=== PATIENT | female | born 1945 | race Caucasian/White ===

== ENCOUNTER → 2017-02-01 | Outpatient (CLI) | payer OTHER ==
[~2017-02-01] MED LIST: CIPR1TAB11 PO; HYZ/10015 PO; METR-163 PO; ONDA4TAB54 PO; POTA8CAP6 PO; PRT/20 PO
[2017-02-01 17:58] LABS: THYROID STIMULATING HORMONE 1.87 uIu/ml (0.300-4.500)
== END | disposition home or self-care (01) ==
LOC: C.LABMFLN 11:56
PROVIDERS: ATTEND Family Medicine
DX: R63.5 Abnormal weight gain (principal)

== ENCOUNTER → 2017-02-26 | Outpatient (CLI) | payer OTHER ==
[2017-02-26 13:08] LABS: BASO % 0.7 %; BASO ABS # 0.06 K/uL (0-0.2); COMPLETE YES; EOS % 3.6 %; HEMATOCRIT 40.3 % (37-47); IG% 0.1 %; LYMPH % 23.7 %; LYMPH ABS # 2.02 K/uL (1.2-3.4); MEAN CELL VOLUME 84.3 fL (80-100); MEAN CORPUSCULAR HEMOGLOBIN 29.7 pg (25-34); MEAN CORPUSCULAR HGB CONC 35.2 g/dl (32-36); MEAN PLATELET VOLUME 11.4 fL (7.4-10.4); MONO % 7.5 %; NEUT % 64.4 %; PLATELET COUNT 235 K/uL (130-400); RED BLOOD COUNT 4.78 M/uL (4.2-5.4); WHITE BLOOD COUNT 8.53 K/uL (4.8-10.8)
[2017-02-26 13:32] LABS: ALT/SGPT 21 U/L (12-78); BLOOD UREA NITROGEN 16 mg/dl (7-18); BUN/CREATININE RATIO 18.1 (10-20); CARBON DIOXIDE 28 mmol/L (21-32); CHLORIDE 105 mmol/L (98-107); CHOLESTEROL 194 mg/dl (0-200); GLUCOSE 124 mg/dl (70-99); POTASSIUM 3.4 mmol/L (3.5-5.1); SODIUM 142 mmol/L (136-145); TRIGLYCERIDES 115 mg/dl (0-150); VERY LOW DENSITY LIPOPROT CALC 23 mg/dl
[2017-02-26 13:36] LABS: ALB/GLOB RATIO 1.2 (0.9-2); ALKALINE PHOSPHATASE 85 U/L (45-117); AST/SGOT 13 U/L (15-37); HDL CHOLESTEROL 49 mg/dl; LDL CHOLESTEROL CALCULATED 122 mg/dl
== END | disposition home or self-care (01) ==
LOC: EDBD → C.LABMFLN 13:31
PROVIDERS: ATTEND Family Medicine
DX: I10 Essential (primary) hypertension (principal); E78.5 Hyperlipidemia, unspecified

== ENCOUNTER 2017-08-02 18:35 | Emergency (ER) | payer OTHER ==
[~2017-08-02] VITALS: Ht 157.5 cm; Wt 66.9 kg
[2017-08-02 18:51] VITALS: Ht 157.5 cm; Wt 66.9 kg
[2017-08-02] MEDS ORDERED: PANTOprazole INJ 80 MG in DEXTROSE 5% 100ML 100 ML IV STA (19:23)
[2017-08-02 19:47] LABS: BASO % 0.6 %; BASO ABS # 0.05 K/uL (0-0.2); COMPLETE YES; EOS % 2.3 %; HEMATOCRIT 35.4 % (37-47); LYMPH % 19.8 %; LYMPH ABS # 1.63 K/uL (1.2-3.4); MEAN CELL VOLUME 82.7 fL (80-100); MEAN CORPUSCULAR HEMOGLOBIN 26.4 pg (25-34); MEAN CORPUSCULAR HGB CONC 31.9 g/dl (32-36); MEAN PLATELET VOLUME 11.6 fL (7.4-10.4); NEUT % 70.3 %; PLATELET COUNT 262 K/uL (130-400); RED BLOOD COUNT 4.28 M/uL (4.2-5.4); WHITE BLOOD COUNT 8.23 K/uL (4.8-10.8)
[2017-08-02 19:53] LABS: PARTIAL THROMBOPLASTIN RATIO 0.9; PROTHROMBIN TIME (PATIENT) 10.3 SECONDS (9.0-12.0)
[2017-08-02 19:55] LABS: ALT/SGPT 20 U/L (12-78); BLOOD UREA NITROGEN 15 mg/dl (7-18); CARBON DIOXIDE 28 mmol/L (21-32); CHLORIDE 104 mmol/L (98-107); GLUCOSE 105 mg/dl (70-99); POTASSIUM 3.2 mmol/L (3.5-5.1); SODIUM 141 mmol/L (136-145)
[2017-08-02 20:00] LABS: ALKALINE PHOSPHATASE 101 U/L (45-117); AST/SGOT 17 U/L (15-37)
[2017-08-02 20:03] LABS: URINE APPEARANCE CLEAR (CLEAR); URINE BILIRUBIN NEG (NEG); URINE COLOR YELLOW; URINE NITRITE NEG (NEG); URINE SPECIFIC GRAVITY 1.009 (1.000-1.030); UROBILINOGEN NEG (NEG)
--- NOTE | 2017-08-02 20:03 | DIAGNOSTIC IMAGING REPORT ---
CHEST ONE VIEW PORTABLE CLINICAL HISTORY: EVALUATE GI BLEED dyspnea COMPARISON STUDY: No previous studies for comparison. FINDINGS: The bones soft tissues and hemidiaphragms are normal. The cardiomediastinal silhouette is normal. The lungs are clear. The pulmonary vasculature is normal. IMPRESSION: Negative chest. The above report was generated using voice recognition software. It may contain grammatical, syntax or spelling errors. Electronically signed by: Glenn Seymour M.D. 08/02/2017 8:01 PM Dictated Date/Time: 08/02/2017 8:01 PM
[2017-08-02 20:07] LABS: MANUAL MICROSCOPIC REQUIRED? NO; REVIEW REQ? YES
[2017-08-02] MEDS ORDERED: PRT/20 PO (20:24)
[2017-08-02 20:51] VITALS: BP 144/83; PULSE 78; TEMP 36.7; O2SAT 94
--- NOTE | 2017-08-03 01:41 | EMERGENCY ROOM VISIT NOTE ---
History Report prepared by Brigitte: Vale Mattson Under the Supervision of: Dr. German Minor M.D. First contact with patient: 19:14 Chief Complaint: GI ASSESSMENT Stated Complaint: GI BLEED PER DR Berry Triage Summary: "My doctor sent me over here and told me I have GI bleeding and my blood count dropped." per pt. History of Present Illness The patient is a 72 year old female who presents to the Emergency Room with complaints of potential GI bleeding starting [employer]. The patient was referred to the ED by her PCP after having blood work yesterday which showed that her hemoglobin was around 10. Her PCP was concerned for GI bleeding. She reports that her stools have been black recently. She notes that she started taking iron pills last week because she had been feeling tired. Her stools were not black prior to taking the iron. She feels lightheaded at times when standing and when she lies back and closes her eyes. She denies any chest pain or LOC. She has not had any rectal bleeding before. She has not noticed any blood in her stool. She was told to stop her aspirin. She is currently not on any blood thinners. She is feeling well. The patient had blood work because she had been feeling SOB for the past year. She has a history of hypertension. She has not yet taken her medications today. She had 13 inches of colon removed for diverticulitis. She has had a hysterectomy. She denies alcohol use. She uses Advil occasionally. Source of History: patient Onset: CASH SPECIALIST Position: other (GI) Quality: other (bleeding) Timing: other (potential) Associated Symptoms: + SOB, No LOC, No chest pain, No hematochezia Note: Pt reports black stools, lightheadedness. Review of Systems See HPI for pertinent positives & negatives. A total of 10 systems reviewed and were otherwise negative. Past Medical & Surgical Medical Problems: (1) Hypertension Surgical Problems: (1) S/P partial colectomy Family History No pertinent family history stated. Social History Smoking Status: Never Smoker Marital Status: Housing Status: lives with significant other Occupation Status: employed Current/Historical Medications Scheduled Pantoprazole (Protonix), 40 MG PO DAILY Allergies Uncoded Allergies: MEDIA CONTRAST (Allergy, Severe, parlaized, 08/02/17) CODINE (Allergy, Intermediate, swelling of the face, 08/02/17) Physical Exam Vital Signs Date Time Temp Pulse Resp B/P (MAP) Pulse Ox O2 Delivery O2 Flow Rate FiO2 08/02/17 20:51 36.7 78 22 144/83 94 08/02/17 20:35 78 22 94 08/02/17 20:30 144/83 08/02/17 20:05 83 27 93 08/02/17 20:00 161/56 08/02/17 19:50 71 18 173/67 98 Room Air 08/02/17 19:46 173/67 08/02/17 19:35 79 22 08/02/17 19:24 79 08/02/17 18:51 36.7 80 18 183/81 97 Room Air Physical Exam Constitutional: Vital signs reviewed. Eyes: Pupils are equal round reactive to light. Conjunctiva are noninjected. ENT: Pharynx is clear without erythema or exudate. Mucous membranes are moist. Neck supple without meningeal signs. Respiratory: Clear to auscultation bilaterally. Breath sounds are equal bilaterally. Cardiovascular: Regular rate and rhythm. No rubs or gallops. GI: Soft, nondistended and nontender. Bowel sounds are present. Rectal: Guaiac positive dark brown stool, no blood. Musculoskeletal: No peripheral edema. No lower extremity tenderness. Integumentary: No cyanosis. Neurological: The patient is awake and alert. No focal deficits. Psychiatric: Normal affect. Medical Decision & Procedures ER Provider Diagnostic Interpretation: X-ray results as stated below per interpretation by me and the radiologist: CHEST ONE VIEW PORTABLE CLINICAL HISTORY: EVALUATE GI BLEED dyspnea COMPARISON STUDY: No previous studies for comparison. FINDINGS: The bones soft tissues and hemidiaphragms are normal. The cardiomediastinal silhouette is normal. The lungs are clear. The pulmonary vasculature is normal. IMPRESSION: Negative chest. The above report was generated using voice recognition software. It may contain grammatical, syntax or spelling errors. Electronically signed by: Glenn Seymour M.D. 08/02/2017 8:01 PM Dictated Date/Time: 08/02/2017 8:01 PM Laboratory Results 08/02/17 19:09 Red Blood Count 4.28, Mean Corpuscular Volume 82.7, Mean Corpuscular Hemoglobin 26.4, Mean Corpuscular Hemoglobin Concent 31.9, Mean Platelet Volume 11.6, Neutrophils (%) (Auto) 70.3, Lymphocytes (%) (Auto) 19.8, Monocytes (%) (Auto) 7.0, Eosinophils (%) (Auto) 2.3, Basophils (%) (Auto) 0.6, Neutrophils # (Auto) 5.78, Lymphocytes # (Auto) 1.63, Monocytes # (Auto) 0.58, Eosinophils # (Auto) 0.19, Basophils # (Auto) 0.05 08/02/17 19:09 Test 08/02/17 19:09 08/02/17 19:30 White Blood Count 8.23 K/uL (4.8-10.8) Red Blood Count 4.28 M/uL (4.2-5.4) Hemoglobin 11.3 g/dL (12.0-16.0) Hematocrit 35.4 % (37-47) Mean Corpuscular Volume 82.7 fL (80-100) Mean Corpuscular Hemoglobin 26.4 pg (25-34) Mean Corpuscular Hemoglobin Concent 31.9 g/dl (32-36) Platelet Count 262 K/uL (130-400) Mean Platelet Volume 11.6 fL (7.4-10.4) Neutrophils (%) (Auto) 70.3 % Lymphocytes (%) (Auto) 19.8 % Monocytes (%) (Auto) 7.0 % Eosinophils (%) (Auto) 2.3 % Basophils (%) (Auto) 0.6 % Neutrophils # (Auto) 5.78 K/uL (1.4-6.5) Lymphocytes # (Auto) 1.63 K/uL (1.2-3.4) Monocytes # (Auto) 0.58 K/uL (0.11-0.59) Eosinophils # (Auto) 0.19 K/uL (0-0.5) Basophils # (Auto) 0.05 K/uL (0-0.2) RDW Standard Deviation 49.3 fL (36.4-46.3) RDW Coefficient of Variation 16.5 % (11.5-14.5) Immature Granulocyte % (Auto) 0.0 % Immature Granulocyte # (Auto) 0.00 K/uL (0.00-0.02) Prothrombin Time 10.3 SECONDS (9.0-12.0) Prothromb Time International Ratio 1.0 (0.9-1.1) Activated Partial Thromboplast Time 24.4 SECONDS (21.0-31.0) Partial Thromboplastin Ratio 0.9 Anion Gap 9.0 mmol/L (3-11) Est Creatinine Clear Calc Drug Dose 45.0 ml/min Estimated GFR () 64.7 Estimated GFR (Non- 55.8 BUN/Creatinine Ratio 15.0 (10-20) Calcium Level 9.0 mg/dl (8.5-10.1) Total Bilirubin 0.3 mg/dl (0.2-1) Direct Bilirubin < 0.1 mg/dl (0-0.2) Aspartate Amino Transf (AST/SGOT) 17 U/L (15-37) Alanine Aminotransferase (ALT/SGPT) 20 U/L (12-78) Alkaline Phosphatase 101 U/L (45-117) Troponin I < 0.015 ng/ml (0-0.045) Total Protein 7.4 gm/dl (6.4-8.2) Albumin 3.9 gm/dl (3.4-5.0) Lipase 214 U/L (73-393) Urine Color YELLOW Urine Appearance CLEAR (CLEAR) Urine pH 6.0 (4.5-7.5) Urine Specific [place] 1.009 (1.000-1.030) Urine Protein NEG (NEG) Urine Glucose (UA) NEG (NEG) Urine Ketones NEG (NEG) Urine Occult Blood 1+ (NEG) Urine Nitrite NEG (NEG) Urine Bilirubin NEG (NEG) Urine Urobilinogen NEG (NEG) Urine Leukocyte Esterase SMALL (NEG) Urine WBC (Auto) 1-5 /hpf (0-5) Urine RBC (Auto) 0-4 /hpf (0-4) Urine Hyaline Casts (Auto) 0 /lpf (0-5) Urine Epithelial Cells (Auto) 5-10 /lpf (0-5) Urine Bacteria (Auto) NEG (NEG) Urine Renal Epithelial Cells 5-10 /lpf (0-5) Laboratory results as reviewed by me. Medications Administered Medications (Trade) Dose Ordered Sig/Abby Route Start Time Stop Time Status Last Admin Dose Admin Pantoprazole Sodium 80 mg/ Dextrose 120 ml @ 400 mls/hr NOW STAT IV 08/02/17 19:23 08/02/17 19:40 DC 08/02/17 19:48 400 MLS/HR ECG Indication: SOB/dyspnea Rate (beats per minute): 72 Rhythm: normal sinus Findings: PAC, RBBB (incomplete), no acute ischemic change ED Course 1915: The patient was evaluated in room C3. A complete history and physical exam was performed. 1922: Pantoprazole Sodium 80 mg/Dextrose 120 ml @ 400 mls/hr IV. 2007: I obtained the test results from her doctors visit yesterday. Her hemoglobin was 10.3 and her potassium was 4. She states that she is on potassium supplements. She also had a negative D dimer and chest X-ray. 2010: I reevaluated the patient. She is resting comfortably. I discussed the test results with her. She verbalized agreement of the treatment plan. The oil field caser is arranging close follow up on Saturday. She will be discharged home. Medical Decision This is a 72-year-old female who presents with anemia and black stools. Differential diagnosis includes upper GI bleed, peptic ulcer disease, varices, perforation, gastritis. I did perform a limited focused review of portions of the patient's old chart on the electronic medical record. The patient has had no recent pertinent visits to this hospital. I did evaluate the patient as noted above. The patient states she has been short of breath for about a year. She was sent here today by her doctor noted that she was anemic. She has had black stools for the past 3 days but states that she has just recently started taking iron tablets. She is guaiac positive on examination with no gross blood was noted and no melena was noted. IV access was established. The patient was placed on a continuous doll wigs hackler. I did order and personally review the patient's 12-lead EKG and chest x-ray as described above. I did order and review the patient's blood work as noted in the electronic medical record. Her hemoglobin is actually higher than it was yesterday. I did treat patient with IV Protonix. I did discuss the test results with the patient. She will need close follow up for further evaluation, repeat hemoglobin and likely EGD. I did asked the oil field caser to help her with close follow up. The patient was discharged in good condition. She was given a prescription for Protonix. Medication Reconcilliation Current Medication List: was personally reviewed by me Blood Pressure Screening Patient's blood pressure: Elevated blood pressure Blood pressure disposition: Referred to PCP Impression Primary Impression: Upper GI bleed Additional Impressions: Anemia Hypokalemia Scribe Attestation The scribe's documentation has been prepared under my direct and personally reviewed by me in its entirety. I confirm that the note above accurately reflects all work, treatment, procedures, and medical decision making performed by me. Departure Information Dispostion Home / Self-Care Prescriptions Pantoprazole (Protonix) 20 Mg Tab 40 MG PO DAILY, #30 TAB Prov: German Minor M.D. 08/02/17 Referrals Ira Bejarano M.D. (PCP) Forms HOME CARE DOCUMENTATION FORM, IMPORTANT VISIT INFORMATION Patient Instructions ED Anemia Type Not Specified, ED Bleed UGI Stable, My [facility] Additional Instructions You have been examined and treated today on an emergency basis only. This is not a substitute for, or an effort to provide, complete comprehensive medical care. It is impossible to recognize and treat all injuries or illnesses in a single emergency department visit. It is therefore important that you follow up closely with your physician on Saturday. Call as soon as possible for an appointment. Return for worsening symptoms or if you develop fever, vomiting blood or coffee grounds, bright red or dark blood through the rectum, feeling like you are going to pass out or are very weak, or any other concerning symptoms. Avoid any aspirin or any anti-inflammatories such as Naprosyn, ibuprofen, Motrin , etc. Problem Qualifiers Additional Impressions: Anemia Anemia type: unspecified type Qualified Codes: D64.9 - Anemia, unspecified
--- NOTE | 2017-08-08 12:57 | Pharmacy Progress Note ---
ED Pharmacist Progress Note Date of Service: Aug 08, 2017. Received phone call from [facility] [place]. Patient was ordered Protonix 20mg tabs, take 2 tabs once daily. Pharmacist wanted to be sure rx was written correctly. I advised pharmacist the pt is to take 40mg daily and that 40mg tabs could be substituted to make this dosage.
== END 2017-08-02 20:52 | disposition home or self-care (01) ==
LOC: C.EDB 18:36 → C.EDC 20:52
DX: K92.2 Gastrointestinal hemorrhage, unspecified (principal); E87.6 Hypokalemia; D64.9 Anemia, unspecified; I49.1 Atrial premature depolarization; I45.10 Unspecified right bundle-branch block; I10 Essential (primary) hypertension; R06.02 Shortness of breath; Z79.899 Other long term (current) drug therapy; Z90.49 Acquired absence of other specified parts of digestive tract; Z90.710 Acquired absence of both cervix and uterus

== ENCOUNTER 2017-08-14 12:51 | Inpatient (IN) | payer OTHER ==
[~2017-08-14] VITALS: Ht 157.5 cm; Wt 64.9 kg
[~2017-08-14 12:51] MED LIST changes: -CIPR1TAB11 PO; -HYZ/10015 PO; -METR-163 PO; -ONDA4TAB54 PO; -POTA8CAP6 PO
[2017-08-14] MEDS ORDERED: SODIUM CHLORIDE 0.9% 1000ML 1,000 ML IV STA (13:14)
[2017-08-14] MEDS ORDERED: ACETAMINOPHEN IV 100 ML IV STA (13:14)
[2017-08-14] MEDS ORDERED: ONDANSETRON INJ 2 MG/ML 2 ML VIAL IV STA (13:14)
[2017-08-14] MEDS ORDERED: POTA8CAP6 PO (13:43)
[2017-08-14] MEDS ORDERED: HYZ/10015 PO (13:43)
--- NOTE | 2017-08-14 13:48 | EMERGENCY ROOM VISIT NOTE ---
History First contact with patient: 13:06 Chief Complaint: ABDOMINAL PAIN Stated Complaint: ABD PAIN Nursing Triage Summary: PCP referred patient to ER for CT scan of her abdomen due recent pain she has been having in her abdomen. Pt had recent endoscopy, PCP informed her that she also has infection in her stomach. History of Present Illness The patient is a 72 year old female who presents to the Emergency Room with complaints of diffuse abdominal pain that started 2 days ago. She states the pain came on gradually throughout the day, has been getting progressively worse , she describes as a pressure and intense, constant, 08/04. She also states that she feels very bloated and states that she has been unable to close her pants which normally fit her. Patient reports she was recently being worked up for fatigue by her PCP, found to have anemia and blood in her stool. She states that she had an endoscopy on 08/06, she was told that they did not find any ulcers or active bleeding, but did say that she had an infection in her stomach and an inflamed esophagus. She also reports a history of diverticulitis and has had a partial bowel resection done in the past about 16 years ago with no further problems. She has associated chills off and on and some intermittent nausea with the pain, she denies any fevers, vomiting, diarrhea or changes in her bowel habits, dysuria. She denies any chest pain, shortness of breath, palpitations, dizziness or syncope, back pain. PMH of HTN. Review of Systems A complete 10 point review of systems was reviewed with the patient with pertinent positives and negatives as per history of present illness. All else were negative. Past Medical/Surgical History Medical Problems: (1) Abdominal pain (2) Diverticulitis (3) Hypertension Surgical Problems: (1) S/P partial colectomy Social History Smoking Status: Never Smoker Marital Status: Housing Status: lives with significant other Occupation Status: employed Current/Historical Medications Scheduled Hctz/Losartan (Hyzaar 25MG/100MG), 1 TAB PO DAILY Pantoprazole (Protonix), 40 MG PO DAILY Potassium Chloride (Klor-Con Ext Rel), 8 MEQ PO DAILY Allergies Reviewed in chart. Physical Exam Vital Signs Date Time Temp Pulse Resp B/P (MAP) Pulse Ox O2 Delivery O2 Flow Rate FiO2 08/14/17 19:50 63 18 106/59 98 Room Air 08/14/17 19:19 73 18 159/68 96 Room Air 08/14/17 17:58 68 18 148/109 97 Room Air 08/14/17 15:39 72 18 108/84 98 Room Air 08/14/17 14:40 66 16 140/75 97 Room Air 08/14/17 12:59 36.9 87 18 168/81 97 Room Air Physical Exam CONSTITUTIONAL: No acute distress, but appears uncomfortable and in pain. Mildly dehydrated. Alert and oriented X 4 with normal affect. HEENT: Normocephalic, atraumatic. Pupils equal, round and reactive to light, EOMI. TMs normal. Pharynx normal. NECK: Supple, full active range of motion without discomfort. RESPIRATORY: Clear to auscultation bilaterally with no wheezing, crackles, rhonchi or stridor. Equal expansion bilaterally. CARDIOVASCULAR: Regular rate and rhythm with no murmurs, rubs or gallops. Normal peripheral perfusion. No edema. GASTROINTESTINAL: The abdomen is soft, slightly distended with decreased bowel sounds throughout, severely tender in all quadrants with guarding and rebound tenderness. MUSCULOSKELETAL: Full range of motion of all joints without discomfort. INTEGUMENTARY: No rash or other significant dermatologic conditions noted. NEUROLOGIC: Cranial nerves II-XII grossly intact. No focal neurologic deficits noted. Medical Decision & Procedures ER Provider Diagnostic Interpretation: ABDOMEN 2VIEW W/PA CHEST RTN CLINICAL HISTORY: eval free air pain COMPARISON STUDY: No previous studies for comparison. FINDINGS: The soft tissues, psoas shadows, renal outlines and intestinal gas pattern appear normal. There is no evidence for bowel obstruction. There is no evidence for free intraperitoneal air. No abnormal abdominal calcifications are seen. A frontal view of the chest was performed and is unremarkable. IMPRESSION: Normal study. ----- CT SCAN OF THE ABDOMEN AND PELVIS WITHOUT CONTRAST CLINICAL HISTORY: Abdominal pain and bloating. Recent endoscopy. Evaluate for bowel perforation. COMPARISON STUDY: Conventional radiographic study dated 08/14/2017 TECHNIQUE: CT scan of the abdomen and pelvis was performed from the lung bases to the proximal femurs. Images are reviewed in the axial, sagittal, and coronal planes. IV contrast was not administered for this examination. A dose lowering technique was utilized adhering to the principles of ALARA. CT DOSE: 267.81 mGy.cm FINDINGS: Lower chest: There are by basilar atelectatic changes. Liver: The unenhanced liver is normal in size, contour, and attenuation. There is no intrahepatic biliary ductal dilatation. Gallbladder: Cholelithiasis Spleen: Normal in size and attenuation. Pancreas: Unremarkable. Adrenal glands: Unremarkable. Kidneys: There is dilatation of the right renal collecting system and pelvis in a pattern suggestive of a UPJ type obstruction. There is also mild fullness of the left renal pelvis but no significant calyceal dilatation. No ureteral calculi are visualized. Bowel: There are no transition zones to indicate bowel obstruction. There is no evidence of acute appendicitis. There is an inflammatory process within the left lateral mid abdomen. There is jejunal bowel wall thickening and infiltration of the mesentery. This is adjacent to a diverticulum of the mid descending colon and there is mild associated colonic wall thickening. The position of the jejunum is unusual as it is located lateral to the descending colon. An internal hernia cannot be excluded. Peritoneum: There is no intraperitoneal free air or abdominal ascites. Vasculature: The abdominal aorta is normal in course and caliber. Adenopathy: None. Pelvic viscera: The uterus appears surgically absent Skeletal structures: No destructive osseous lesions are seen. IMPRESSION: 1. Inflammatory process involving the left lateral midabdomen. There is jejunal bowel wall thickening and significant infiltration of the associated mesentery. This is immediately adjacent to a diverticulum of the mid descending colon and there is mild associated colonic wall thickening. The position of the jejunum is unusual as it is located lateral to the descending colon. An internal hernia cannot be excluded. A primary jejunal process with secondary involvement of the colon is favored over diverticulitis with secondary involvement of the jejunum. 2. Cholelithiasis 3. Dilated right renal collecting system and pelvis the pattern suggestive a UPJ type obstruction. Laboratory Results 08/14/17 13:30 Red Blood Count 4.25, Mean Corpuscular Volume 81.9, Mean Corpuscular Hemoglobin 26.6, Mean Corpuscular Hemoglobin Concent 32.5, Mean Platelet Volume 10.8, Neutrophils (%) (Auto) 78.7, Lymphocytes (%) (Auto) 12.7, Monocytes (%) (Auto) 6.4, Eosinophils (%) (Auto) 1.5, Basophils (%) (Auto) 0.4, Neutrophils # (Auto) 8.61, Lymphocytes # (Auto) 1.39, Monocytes # (Auto) 0.70, Eosinophils # (Auto) 0.16, Basophils # (Auto) 0.04 08/14/17 13:30 Test 08/14/17 13:30 08/14/17 13:37 08/14/17 14:20 White Blood Count 10.93 K/uL (4.8-10.8) Red Blood Count 4.25 M/uL (4.2-5.4) Hemoglobin 11.3 g/dL (12.0-16.0) Hematocrit 34.8 % (37-47) Mean Corpuscular Volume 81.9 fL (80-100) Mean Corpuscular Hemoglobin 26.6 pg (25-34) Mean Corpuscular Hemoglobin Concent 32.5 g/dl (32-36) Platelet Count 234 K/uL (130-400) Mean Platelet Volume 10.8 fL (7.4-10.4) Neutrophils (%) (Auto) 78.7 % Lymphocytes (%) (Auto) 12.7 % Monocytes (%) (Auto) 6.4 % Eosinophils (%) (Auto) 1.5 % Basophils (%) (Auto) 0.4 % Neutrophils # (Auto) 8.61 K/uL (1.4-6.5) Lymphocytes # (Auto) 1.39 K/uL (1.2-3.4) Monocytes # (Auto) 0.70 K/uL (0.11-0.59) Eosinophils # (Auto) 0.16 K/uL (0-0.5) Basophils # (Auto) 0.04 K/uL (0-0.2) RDW Standard Deviation 49.0 fL (36.4-46.3) RDW Coefficient of Variation 16.4 % (11.5-14.5) Immature Granulocyte % (Auto) 0.3 % Immature Granulocyte # (Auto) 0.03 K/uL (0.00-0.02) Anion Gap 9.0 mmol/L (3-11) Est Creatinine Clear Calc Drug Dose 46.2 ml/min Estimated GFR () 66.3 Estimated GFR (Non- 57.2 BUN/Creatinine Ratio 14.2 (10-20) Calcium Level 9.2 mg/dl (8.5-10.1) Total Bilirubin 0.5 mg/dl (0.2-1) Direct Bilirubin 0.1 mg/dl (0-0.2) Aspartate Amino Transf (AST/SGOT) 13 U/L (15-37) Alanine Aminotransferase (ALT/SGPT) 17 U/L (12-78) Alkaline Phosphatase 97 U/L (45-117) Total Protein 7.0 gm/dl (6.4-8.2) Albumin 3.5 gm/dl (3.4-5.0) Lipase 153 U/L (73-393) Bedside Lactic Acid Venous 1.89 mmol/L (0.90-1.70) Urine Color YELLOW Urine Appearance CLEAR (CLEAR) Urine pH 8.0 (4.5-7.5) Urine Specific [place] 1.013 (1.000-1.030) Urine Protein NEG (NEG) Urine Glucose (UA) NEG (NEG) Urine Ketones NEG (NEG) Urine Occult Blood NEG (NEG) Urine Nitrite NEG (NEG) Urine Bilirubin NEG (NEG) Urine Urobilinogen NEG (NEG) Urine Leukocyte Esterase SMALL (NEG) Urine WBC (Auto) 1-5 /hpf (0-5) Urine RBC (Auto) 0-4 /hpf (0-4) Urine Hyaline Casts (Auto) 1-5 /lpf (0-5) Urine Epithelial Cells (Auto) 10-20 /lpf (0-5) Urine Bacteria (Auto) NEG (NEG) Medications Administered Medications (Trade) Dose Ordered Sig/Abby Route Start Time Stop Time Status Last Admin Dose Admin Sodium Chloride 1,000 ml @ 999 mls/hr Q1H1M STAT IV 08/14/17 13:14 08/14/17 14:14 DC 08/14/17 13:39 999 MLS/HR Ondansetron HCl (Zofran Inj) 4 mg NOW STAT IV 08/14/17 13:14 08/14/17 13:19 DC 08/14/17 13:38 4 MG Acetaminophen 100 ml @ 400 mls/hr NOW STAT IV 08/14/17 13:14 08/14/17 13:28 DC 08/14/17 13:39 400 MLS/HR Morphine Sulfate (MoRPHine SULFATE INJ) 2 mg NOW STAT IV 08/14/17 17:25 08/14/17 17:26 DC 08/14/17 17:31 2 MG Piperacillin Sod/ Tazobactam Sod (Zosyn Iv) 4.5 gm NOW STAT IV 08/14/17 17:29 08/14/17 17:30 DC 08/14/17 17:54 4.5 GM Morphine Sulfate (MoRPHine SULFATE INJ) 4 mg NOW STAT IV 08/14/17 19:29 08/14/17 19:30 DC 08/14/17 19:39 4 MG Medical Decision CC: Patient presenting with complaint of abdominal pain and bloating Interpretation of Labs: Leukocytosis with left shift, mild anemia that appears unchanged from previous, hypokalemia, no other significant electrolyte abnormality, normal renal function, normal liver enzymes and lipase, slightly elevated lactic acid. UA negative. Differential Diagnosis: Includes, but not limited to bowel perforation, small bowel obstruction, diverticulitis, gastritis, gastroenteritis, intra-abdominal abscess, intra-abdominal mass, among others Medication Reconciliation: I attest that I have personally reviewed the patient' s current medication list. Vital signs review: I reviewed the patient's vital signs and interpret them as follows: T: Afebrile; BP: Hypertensive; HR: Within normal limits; RR: Within normal limits; Pulse Ox: Within normal limits on room air. Summary: Patient was evaluated at bedside, history of physical exam performed. Patient is alert and in no acute distress, but does appear to be quite uncomfortable and in pain. She is resting comfortably in the stretcher, but experiences significant pain with any movement. Patient has slight abdominal distention on exam and it is noted that she was unable to fully close her pants which she states normally fit her. The abdomen is diffusely tender and distended throughout, diminished bowel sounds, with some guarding and rebound tenderness. The abdomen is soft, I do not suspect acute abdomen at this time. Given her recent endoscopy procedure, I am most concerned for possible bowel perforation, upright abdominal series ordered to assess for free air. Patient was offered IV morphine for her pain, she states she does not want to take anything sedating, requested Tylenol. IV Tylenol ordered. Orders were also placed for labs, UA, IV fluids for hydration, IV Zofran for nausea, CT abdomen/pelvis with oral contrast (IV contrast was not ordered due to patient allergy)to further evaluate for bowel perforation and other intra- abdominal abnormalities. Patient discussed with Dr. Barclay, who agrees with my assessment and plan. Labs reviewed as above, mild leukocytosis and mildly elevated lactic acid. No acute worsening of anemia. Abdominal series x-ray imaging shows non-obstructive pattern and no free air. CT imaging concerning for large area of bowel inflammation and infiltrative changes, unclear etiology. 1715 - I updated patient and her family on all results thus far. Patient still rates her pain as 9/10 with any movement, but states she is comfortable at rest. She does agree to a small dose of morphine at this time for management of her severe pain. IV Zosyn ordered for empiric coverage of possible abdominal infection. I spoke on the phone with Dr. Gordon, GI, who agrees with plan for admission and will see the patient tomorrow for possible inpatient colonoscopy. I spoke with Dr. Rod, Hospitalist, who agrees to admit the patient. I made attempts to speak with general surgery regarding the patient's exam and CT findings, however I have been unable to get in touch with them. I did discuss this with Dr. Rod, she will follow up with surgery. Patient reassessed multiple times throughout ED stay, she remains stable and in no acute distress, but continues to complain of significant abdominal pain with any movement or palpation of the abdomen. She has been improving slightly with the morphine. She has been kept nothing by mouth with the exception of oral contrast. I updated the patient and her family on the plans for admission, they verbalized understanding and are agreeable to this plan. The patient was stable at time of admission. Blood Pressure Screening Patient's blood pressure: Elevated blood pressure Impression Primary Impression: Abdominal pain Departure Information Dispostion Admitted as an inpatient Condition FAIR Referrals Ira Bejarano M.D. (PCP) Patient Instructions [facility] Problem Qualifiers Primary Impression: Abdominal pain Abdominal location: generalized Qualified Codes: R10.84 - Generalized abdominal pain
[2017-08-14 13:52] LABS: BASO % 0.4 %; BASO ABS # 0.04 K/uL (0-0.2); COMPLETE YES; EOS % 1.5 %; HEMATOCRIT 34.8 % (37-47); IG% 0.3 %; LYMPH % 12.7 %; LYMPH ABS # 1.39 K/uL (1.2-3.4); MEAN CELL VOLUME 81.9 fL (80-100); MEAN CORPUSCULAR HEMOGLOBIN 26.6 pg (25-34); MEAN CORPUSCULAR HGB CONC 32.5 g/dl (32-36); MEAN PLATELET VOLUME 10.8 fL (7.4-10.4); MONO % 6.4 %; NEUT % 78.7 %; PLATELET COUNT 234 K/uL (130-400); RED BLOOD COUNT 4.25 M/uL (4.2-5.4); WHITE BLOOD COUNT 10.93 K/uL (4.8-10.8)
[2017-08-14 14:15] LABS: BUN/CREATININE RATIO 14.2 (10-20); CALCIUM 9.2 mg/dl (8.5-10.1); CREATININE 0.98 mg/dl (0.60-1.20)
[2017-08-14 14:43] LABS: URINE APPEARANCE CLEAR (CLEAR); URINE BILIRUBIN NEG (NEG); URINE COLOR YELLOW; URINE NITRITE NEG (NEG); URINE SPECIFIC GRAVITY 1.013 (1.000-1.030); UROBILINOGEN NEG (NEG); ZZUR CULT IF INDIC CLEAN CATCH NO
[2017-08-14 14:48] LABS: MANUAL MICROSCOPIC REQUIRED? NO; REVIEW REQ? NO
--- NOTE | 2017-08-14 15:00 | DIAGNOSTIC IMAGING REPORT ---
ABDOMEN 2VIEW W/PA CHEST RTN CLINICAL HISTORY: eval free air pain COMPARISON STUDY: No previous studies for comparison. FINDINGS: The soft tissues, psoas shadows, renal outlines and intestinal gas pattern appear normal. There is no evidence for bowel obstruction. There is no evidence for free intraperitoneal air. No abnormal abdominal calcifications are seen. A frontal view of the chest was performed and is unremarkable. IMPRESSION: Normal study. The above report was generated using voice recognition software. It may contain grammatical, syntax or spelling errors. Electronically signed by: Glenn Seymour M.D. 08/14/2017 2:59 PM Dictated Date/Time: 08/14/2017 2:58 PM
--- NOTE | 2017-08-14 16:56 | DIAGNOSTIC IMAGING REPORT ---
CT SCAN OF THE ABDOMEN AND PELVIS WITHOUT CONTRAST CLINICAL HISTORY: Abdominal pain and bloating. Recent endoscopy. Evaluate for bowel perforation. COMPARISON STUDY: Conventional radiographic study dated 08/14/2017 TECHNIQUE: CT scan of the abdomen and pelvis was performed from the lung bases to the proximal femurs. Images are reviewed in the axial, sagittal, and coronal planes. IV contrast was not administered for this examination. A dose lowering technique was utilized adhering to the principles of ALARA. CT DOSE: 267.81 mGy.cm FINDINGS: Lower chest: There are by basilar atelectatic changes. Liver: The unenhanced liver is normal in size, contour, and attenuation. There is no intrahepatic biliary ductal dilatation. Gallbladder: Cholelithiasis Spleen: Normal in size and attenuation. Pancreas: Unremarkable. Adrenal glands: Unremarkable. Kidneys: There is dilatation of the right renal collecting system and pelvis in a pattern suggestive of a UPJ type obstruction. There is also mild fullness of the left renal pelvis but no significant calyceal dilatation. No ureteral calculi are visualized. Bowel: There are no transition zones to indicate bowel obstruction. There is no evidence of acute appendicitis. There is an inflammatory process within the left lateral mid abdomen. There is jejunal bowel wall thickening and infiltration of the mesentery. This is adjacent to a diverticulum of the mid descending colon and there is mild associated colonic wall thickening. The position of the jejunum is unusual as it is located lateral to the descending colon. An internal hernia cannot be excluded. Peritoneum: There is no intraperitoneal free air or abdominal ascites. Vasculature: The abdominal aorta is normal in course and caliber. Adenopathy: None. Pelvic viscera: The uterus appears surgically absent Skeletal structures: No destructive osseous lesions are seen. IMPRESSION: 1. Inflammatory process involving the left lateral midabdomen. There is jejunal bowel wall thickening and significant infiltration of the associated mesentery. This is immediately adjacent to a diverticulum of the mid descending colon and there is mild associated colonic wall thickening. The position of the jejunum is unusual as it is located lateral to the descending colon. An internal hernia cannot be excluded. A primary jejunal process with secondary involvement of the colon is favored over diverticulitis with secondary involvement of the jejunum. 2. Cholelithiasis 3. Dilated right renal collecting system and pelvis the pattern suggestive a UPJ type obstruction Electronically signed by: Migel Angulo M.D. 08/14/2017 4:55 PM Dictated Date/Time: 08/14/2017 4:41 PM
[2017-08-14] MEDS ORDERED: MoRPHine SULFATE 4 MG/ML 1 ML CARP\\VIAL IV STA ×2 (17:25→19:29)
[2017-08-14] MEDS ORDERED: PIPERACILLIN/TAZOBACTAM 4.5 GM/100ML D5W IV STA (17:29)
--- NOTE | 2017-08-14 17:37 | EMERGENCY ROOM VISIT NOTE ---
ED Visit Note First contact with patient: 13:06 Patient was seen by our PA/GALLERY OR MUSEUM CURATOR. I was involved in the patient's care and did evaluate the patient myself. I was involved in the care throughout the ER stay. The patient presents with abdominal pain after having an endoscopy. She has a mild leukocytosis. CT scan shows jejunal inflammation with mesenteric inflammation. No bowel perforation or bowel obstruction. The patient is receiving IV antibiotics, pain medication has been ordered. Given the findings and her discomfort, admission observation is warranted. Surgery will be consulted, GI will be consulted.
[2017-08-14] MEDS ORDERED: NSS + 20MEQ KCL 1000ML 1,000 ML IV SCH (19:48)
[2017-08-14] MEDS ORDERED: MAGNESIUM HYDROXIDE SUSP 30 ML UDC PO PRN ×2 (20:00→20:45)
[2017-08-14] MEDS ORDERED: ZOLPIDEM TARTRATE 5 MG TAB PO PRN ×2 (20:00→20:45)
[2017-08-14] MEDS ORDERED: ONDANSETRON INJ 2 MG/ML 2 ML VIAL IV PRN (20:00)
[2017-08-14] MEDS ORDERED: ACETAMINOPHEN 325 MG TAB PO PRN ×2 (20:00→20:45)
[2017-08-14] MEDS ORDERED: ALUMINUM/MAGNESIUM/SIMETH (MAALOX MAX) 30 ML UDC PO PRN (20:00)
[2017-08-14 20:10] VITALS: Ht 157.5 cm; Wt 64.9 kg
[2017-08-14] MEDS ORDERED: MoRPHine SULFATE 4 MG/ML 1 ML CARP\\VIAL IV PRN (20:30)
--- NOTE | 2017-08-14 20:51 | Surgery Consultation ---
Consultation Date of Consultation: Aug 14, 2017. Attending Physician: History of Present Illness 72 y/o female with primarily right mid-abdominal pain since Saturday. She recently was found to be anemic and an EGD was essentially negative according to her. no n/v. pain has been essentially unchanged since Saturday. she states it feels like her prior bouts of diverticulitis. pain is better when she lies still and worse with movement. Social History Smoking Status: Never Smoker Marital Status: Housing Status: lives with significant other Occupation Status: employed Allergies Uncoded Allergies: MEDIA CONTRAST (Allergy, Severe, parlaized, 08/02/17) CODINE (Allergy, Intermediate, swelling of the face, 08/02/17) Home Medications Scheduled Hctz/Losartan (Hyzaar 25MG/100MG), 1 TAB PO DAILY Pantoprazole (Protonix), 40 MG PO DAILY Potassium Chloride (Klor-Con Ext Rel), 8 MEQ PO DAILY Current Inpatient Medications Current Inpatient Medications Medications (Trade) Dose Ordered Sig/Abby Route Start Time Stop Time Status Last Admin Dose Admin Potassium Chloride/Sodium Chloride 1,000 ml @ 125 mls/hr Q8H IV 08/14/17 19:48 08/15/17 19:47 Hydromorphone HCl (Dilaudid Inj) 0.5 mg Q2H PRN IV 08/14/17 20:30 08/28/17 20:29 UNV Morphine Sulfate (MoRPHine SULFATE INJ) 4 mg Q2H PRN IV 08/14/17 20:30 08/28/17 20:29 UNV Ciprofloxacin/ Dextrose 400 mg/ Prmx 200 ml @ 100 mls/hr Q12 IV 08/14/17 21:00 08/24/17 20:59 UNV Metronidazole 500 mg/Prmx 100 ml @ 100 mls/hr Q8H IV 08/14/17 20:30 08/24/17 20:29 UNV Review of Systems Abdomen: + pain, + problem reported (recent Heme + on hemoccult. egd negative. no gross blood in stool) Physical Exam Date Time Temp Pulse Resp B/P (MAP) Pulse Ox O2 Delivery O2 Flow Rate FiO2 08/14/17 20:22 70 18 144/67 98 08/14/17 20:10 Room Air 08/14/17 19:50 63 18 106/59 98 Room Air 08/14/17 19:19 73 18 159/68 96 Room Air 08/14/17 17:58 68 18 148/109 97 Room Air 08/14/17 15:39 72 18 108/84 98 Room Air 08/14/17 14:40 66 16 140/75 97 Room Air 08/14/17 12:59 36.9 87 18 168/81 97 Room Air General Appearance: + mild distress Head: normocephalic, atraumatic Eyes: EOMI, sclerae normal ENT: hearing grossly normal Neck: no JVD, trachea midline Respiratory/Chest: no respiratory distress, no accessory muscle use Abdomen/GI: soft, + tenderness (+TTP in RUQ and Right mid-abdomen. mild distenstion. no peritoneal signs ) Neurologic/Psych: alert, oriented x 3 Skin: warm/dry, no rash Laboratory Results Last 24 Hours Test 08/14/17 13:30 08/14/17 13:37 08/14/17 14:20 White Blood Count 10.93 K/uL Red Blood Count 4.25 M/uL Hemoglobin 11.3 g/dL Hematocrit 34.8 % Mean Corpuscular Volume 81.9 fL Mean Corpuscular Hemoglobin 26.6 pg Mean Corpuscular Hemoglobin Concent 32.5 g/dl Platelet Count 234 K/uL Mean Platelet Volume 10.8 fL Neutrophils (%) (Auto) 78.7 % Lymphocytes (%) (Auto) 12.7 % Monocytes (%) (Auto) 6.4 % Eosinophils (%) (Auto) 1.5 % Basophils (%) (Auto) 0.4 % Neutrophils # (Auto) 8.61 K/uL Lymphocytes # (Auto) 1.39 K/uL Monocytes # (Auto) 0.70 K/uL Eosinophils # (Auto) 0.16 K/uL Basophils # (Auto) 0.04 K/uL RDW Standard Deviation 49.0 fL RDW Coefficient of Variation 16.4 % Immature Granulocyte % (Auto) 0.3 % Immature Granulocyte # (Auto) 0.03 K/uL Sodium Level 141 mmol/L Potassium Level 3.0 mmol/L Chloride Level 106 mmol/L Carbon Dioxide Level 26 mmol/L Anion Gap 9.0 mmol/L Blood Urea Nitrogen 14 mg/dl Creatinine 0.98 mg/dl Est Creatinine Clear Calc Drug Dose 46.2 ml/min Estimated GFR () 66.3 Estimated GFR (Non- 57.2 BUN/Creatinine Ratio 14.2 Random Glucose 171 mg/dl Calcium Level 9.2 mg/dl Total Bilirubin 0.5 mg/dl Direct Bilirubin 0.1 mg/dl Aspartate Amino Transf (AST/SGOT) 13 U/L Alanine Aminotransferase (ALT/SGPT) 17 U/L Alkaline Phosphatase 97 U/L Total Protein 7.0 gm/dl Albumin 3.5 gm/dl Lipase 153 U/L Bedside Lactic Acid Venous 1.89 mmol/L Urine Color YELLOW Urine Appearance CLEAR Urine pH 8.0 Urine Specific [place] 1.013 Urine Protein NEG Urine Glucose (UA) NEG Urine Ketones NEG Urine Occult Blood NEG Urine Nitrite NEG Urine Bilirubin NEG Urine Urobilinogen NEG Urine Leukocyte Esterase SMALL Urine WBC (Auto) 1-5 /hpf Urine RBC (Auto) 0-4 /hpf Urine Hyaline Casts (Auto) 1-5 /lpf Urine Epithelial Cells (Auto) 10-20 /lpf Urine Bacteria (Auto) NEG Assessment & Plan Abdominal pain with mild leukocytosis and CT finding of inflammatory process I suspect this is diverticulitis with local inflammatory reaction of adjacent small bowel anatomy likely distorted as described on CT secondary to prior surgical hx. no evidence clinically of obstruction/internal hernia etc...does not appear clinically to have GI ischemia rec: admit/NPO/IVF/IV antibiotics with gram -/anaerobic coverage symptom control we are not out of the [place] regarding surgical intervention but no indication for urgent ex-lap currently will follow along closely discussed with primary team.
[2017-08-14 21:00] VITALS: BP 160/68; PULSE 77; TEMP 36.5; O2SAT 98
[2017-08-14] MEDS ORDERED: HEPARIN SOD 5000 UNIT/0.5 ML CARP SQ SCH (21:00)
--- NOTE | 2017-08-14 21:04 | History and Physical ---
History & Physical Date & Time of Service: Aug 14, 2017 at 20:53 Chief Complaint: Abd Pain Primary Care Physician: Ira Bejarano M.D. History of Present Illness Source: patient, family Mrs Keene is a 72 yo F with hypertension and known diverticular disease (s/p bowel resection 16 y ago, without any complications since) who presents with severe diffuse abdominal pain. She sees a Christopher Reyna PCP in [place] and Dr Keane from [facility]. Her PCP and GI have been working up her anemia / fatigue. She was found to have heme positive stools on a visit to the ED 08/02, but EGD on 08/06 did not show a bleeding ulcer. She presents today with diffuse abdominal pain since Saturday, 2 days ago. She describes it as sharp, intermittent , diffuse but worse in the top of her abdomen. It is associated with nausea and feeling bloated. She felt somewhat better after the second dose of morphine but denies any other relieving factors. Her pain is currently a /10. She is not currently vomiting. In the ED, the FINANCIAL AID ADMINISTRATOR discussed her care with her GI Dr. She was reviewed by Dr Johnson of General Surgery as well. It was recommended for her to be admitted for conservative management at this time. Past Medical/Surgical History Medical Problems: (1) Hypertension Status: Chronic Surgical Problems: (1) S/P partial colectomy Status: Resolved Family History No pertinent family history Social History Smoking Status: Never Smoker Smokeless Tobacco Use: No Alcohol Use: none Drug Use: none Marital Status: Housing status: lives with family Occupational Status: employed Immunizations History of Influenza Vaccine: Unknown History of Tetanus Vaccine?: Unknown History of Pneumococcal: Unknown History of Hepatitis B Vaccine: Unknown Multi-Drug Resistant Organisms History of MDRO: No Allergies Uncoded Allergies: MEDIA CONTRAST (Allergy, Severe, parlaized, 08/02/17) CODINE (Allergy, Intermediate, swelling of the face, 08/02/17) Home Medications Scheduled Hctz/Losartan (Hyzaar 25MG/100MG), 1 TAB PO DAILY Pantoprazole (Protonix), 40 MG PO DAILY Potassium Chloride (Klor-Con Ext Rel), 8 MEQ PO DAILY Review of Systems See HPI for pertinent positives & negatives. A total of 10 systems reviewed and were otherwise negative. Physical Exam Vital Signs Date Time Temp Pulse Resp B/P (MAP) Pulse Ox O2 Delivery O2 Flow Rate FiO2 08/14/17 20:22 70 18 144/67 98 08/14/17 20:10 Room Air 08/14/17 19:50 63 18 106/59 98 Room Air 08/14/17 19:19 73 18 159/68 96 Room Air 08/14/17 17:58 68 18 148/109 97 Room Air 08/14/17 15:39 72 18 108/84 98 Room Air 08/14/17 14:40 66 16 140/75 97 Room Air 08/14/17 12:59 36.9 87 18 168/81 97 Room Air General Appearance: WD/WN, + mild distress Head: normocephalic, atraumatic Eyes: normal inspection, PERRL ENT: hearing grossly normal Neck: supple, no JVD Respiratory/Chest: lungs clear, normal breath sounds, no respiratory distress Cardiovascular: regular rate, rhythm, no murmur, normal peripheral pulses Abdomen/GI: normal bowel sounds, + tenderness (diffuse, worse in epigastrium), + distended, + guarding Back: no CVA tenderness, no muscle spasm Extremities/Musculoskelatal: no calf tenderness, no pedal edema Neurologic/Psych: alert, normal mood/affect, normal reflexes, oriented x 3 Skin: no rash Diagnostics Laboratory Results Results Past 24 Hours Test 08/14/17 13:30 08/14/17 13:37 08/14/17 14:20 Range/Units White Blood Count 10.93 4.8-10.8 K/uL Red Blood Count 4.25 4.2-5.4 M/uL Hemoglobin 11.3 12.0-16.0 g/dL Hematocrit 34.8 37-47 % Mean Corpuscular Volume 81.9 80-100 fL Mean Corpuscular Hemoglobin 26.6 25-34 pg Mean Corpuscular Hemoglobin Concent 32.5 32-36 g/dl Platelet Count 234 130-400 K/uL Mean Platelet Volume 10.8 7.4-10.4 fL Neutrophils (%) (Auto) 78.7 % Lymphocytes (%) (Auto) 12.7 % Monocytes (%) (Auto) 6.4 % Eosinophils (%) (Auto) 1.5 % Basophils (%) (Auto) 0.4 % Neutrophils # (Auto) 8.61 1.4-6.5 K/uL Lymphocytes # (Auto) 1.39 1.2-3.4 K/uL Monocytes # (Auto) 0.70 0.11-0.59 K/uL Eosinophils # (Auto) 0.16 0-0.5 K/uL Basophils # (Auto) 0.04 0-0.2 K/uL RDW Standard Deviation 49.0 36.4-46.3 fL RDW Coefficient of Variation 16.4 11.5-14.5 % Immature Granulocyte % (Auto) 0.3 % Immature Granulocyte # (Auto) 0.03 0.00-0.02 K/uL Sodium Level 141 136-145 mmol/L Potassium Level 3.0 3.5-5.1 mmol/L Chloride Level 106 98-107 mmol/L Carbon Dioxide Level 26 21-32 mmol/L Anion Gap 9.0 3-11 mmol/L Blood Urea Nitrogen 14 7-18 mg/dl Creatinine 0.98 0.60-1.20 mg/dl Est Creatinine Clear Calc Drug Dose 46.2 ml/min Estimated GFR () 66.3 Estimated GFR (Non- 57.2 BUN/Creatinine Ratio 14.2 10-20 Random Glucose 171 70-99 mg/dl Calcium Level 9.2 8.5-10.1 mg/dl Total Bilirubin 0.5 0.2-1 mg/dl Direct Bilirubin 0.1 0-0.2 mg/dl Aspartate Amino Transf (AST/SGOT) 13 15-37 U/L Alanine Aminotransferase (ALT/SGPT) 17 12-78 U/L Alkaline Phosphatase 97 45-117 U/L Total Protein 7.0 6.4-8.2 gm/dl Albumin 3.5 3.4-5.0 gm/dl Lipase 153 73-393 U/L Bedside Lactic Acid Venous 1.89 0.90-1.70 mmol/L Urine Color YELLOW Urine Appearance CLEAR CLEAR Urine pH 8.0 4.5-7.5 Urine Specific [place] 1.013 1.000-1.030 Urine Protein NEG NEG Urine Glucose (UA) NEG NEG Urine Ketones NEG NEG Urine Occult Blood NEG NEG Urine Nitrite NEG NEG Urine Bilirubin NEG NEG Urine Urobilinogen NEG NEG Urine Leukocyte Esterase SMALL NEG Urine WBC (Auto) 1-5 0-5 /hpf Urine RBC (Auto) 0-4 0-4 /hpf Urine Hyaline Casts (Auto) 1-5 0-5 /lpf Urine Epithelial Cells (Auto) 10-20 0-5 /lpf Urine Bacteria (Auto) NEG NEG Diagnostic Radiology CT A/P IMPRESSION: 1. Inflammatory process involving the left lateral midabdomen. There is jejunal bowel wall thickening and significant infiltration of the associated mesentery. This is immediately adjacent to a diverticulum of the mid descending colon and there is mild associated colonic wall thickening. The position of the jejunum is unusual as it is located lateral to the descending colon. An internal hernia cannot be excluded. A primary jejunal process with secondary involvement of the colon is favored over diverticulitis with secondary involvement of the jejunum. 2. Cholelithiasis 3. Dilated right renal collecting system and pelvis the pattern suggestive a UPJ type obstruction AXR IMPRESSION: Normal study. EKG Normal sinus rhythm with occasional Premature atrial complexes Normal ECG When compared with ECG of 02-AUG-2017 19:16, No significant change Confirmed by BRAD LARSON ([id number]) on 08/14/2017 3:38:14 PM Impression Assessment and Plan 72 yo F with known diverticulitis who presents w/severe abdominal pain and inflammation on CT - likely diverticulitis at this time, per surgery will treat conservatively unless anything worsens. Diverticulitis Received dose of Zosyn in ED. Will continue pt on Cipro and Flagyl IV. NPO with IV fluids. For pain, IV Tylenol, IV Morphine 4mg for moderate pain, and IV dilaudid for severe pain. If these are not controlling her pain, please page me. GI & General Surgery consulted. Hypokalemia K Edin now. Recheck in AM. Hypertension Will provide hydralazine IV for SBP > 160 or DBP > 110 Hold home Cozaar/HCTZ combo Code status: Full Dispo: Telemetry VTE: Heparin Attending Addendum: I have physically seen and examined this patient, have directed the resident's medical activities, and agree with the H&P as noted above with the following exceptions as noted. The patient is awake, alert and oriented 3, well-developed and well-nourished , normocephalic and atraumatic, lying in bed and in mild distress secondary to abdominal pain. HEENT--PERRL, EOMI, mucous membranes and oropharynx dry. Neck--supple, no JVD or bruits, thyroid normal, trachea midline, no adenopathy. Heart--normal S1 and S2, no extra beats, no murmurs, rubs or gallops. Lungs--clear bilaterally with good air movement, no respiratory distress, no accessory muscle use. Abdomen--generalized tenderness, worse in the epigastric area, mild distention with guarding. Extremities--no cyanosis, clubbing or edema. There are good distal pulses b/l. Dermatologic--normal skin turgor, normal color, warm and dry, no abnormal lymph nodes, no rash. Neurologic--cranial nerves II through XII grossly intact. Rheumatologic--normal range of motion, nontender, muscles and joints. Psychiatric--normal affect. Assessment and Plan: Diverticulitis-- She has been seen by surgery in the ED who recommends conservative therapy does time. Cipro 400 mg IV every 12 hours, and Flagyl 500 mg IV every 8 hours. Normal saline with KCl 20 mEq 100 mils per hour. Tylenol IV for mild pain or fever, morphine 4 mg IV every 2 hours when necessary moderate pain, and Dilaudid IV for severe pain. Zofran 4 mg IV every 6 hours when necessary nausea, Famotidine 20 mg IV every 12 hours. Hypertension/hypokalemia-- IV replacement. Repeat BMP and magnesium level in the a.m. Hold Hyzaar. When necessary hydralazine IV. Level of Care Telemetry Advanced Directives Existing Advance Directive: No Existing Living Will: No Existing Power of Travel Nurse: No Resuscitation Status FULL NO CARDIOVERSION VTE Prophylaxis VTE Risk Assessment Done? Y/N: Yes Risk Level: Moderate Given or contraindicated: SCD's Social Service Consult None Apply Resident Tracking Resident Involvement: Resident Care Provided Care Provided: Adult Hospital Medicine
[2017-08-14] MEDS ORDERED: INFLUENZA VACCINE HIGH DOSE 65+ 0.5 ML SYR IM. ONE (22:00)
[2017-08-14] MEDS ORDERED: INFLUENZA ADMINISTRATION CHARGE ONE (22:00)
[2017-08-14] MEDS: POTASSIUM CHLR 10 MEQ / WTR 10 MEQ in PREMIXED WATER 100 ML IV SCH ×2 (22:09→23:56)
[2017-08-14] MEDS: METRONIDAZOLE / NSS 500 MG in PREMIXED NSS 100 ML IV SCH (22:10)
[2017-08-14] MEDS: CIPROFLOXACIN / D5W 400 MG in PREMIXED IN D5W 200 ML IV SCH (22:12)
[2017-08-14] MEDS: SODIUM CHLOR 0.45% + 20MEQ KCL 1,000 ML IV SCH (22:22)
[2017-08-14 23:00] VITALS: BP 137/69; PULSE 78; TEMP 36.7; O2SAT 95
[2017-08-15] MEDS: HEPARIN SOD 5000 UNIT/0.5 ML CARP SQ SCH ×3 (00:10→21:54)
[2017-08-15 04:37] VITALS: BP 137/79; PULSE 80; TEMP 36.8; O2SAT 95
[2017-08-15] MEDS: METRONIDAZOLE / NSS 500 MG in PREMIXED NSS 100 ML IV SCH ×3 (05:40→21:32)
[2017-08-15] MEDS: SODIUM CHLOR 0.45% + 20MEQ KCL 1,000 ML IV SCH ×2 (05:40→13:22)
[2017-08-15] MEDS: ONDANSETRON INJ 2 MG/ML 2 ML VIAL IV PRN ×3 (05:59→23:48)
[2017-08-15 06:36] LABS: BASO % 0.2 %; BASO ABS # 0.02 K/uL (0-0.2); COMPLETE YES; EOS % 1.1 %; HEMATOCRIT 30.9 % (37-47); IG% 0.3 %; LYMPH % 15.9 %; LYMPH ABS # 1.58 K/uL (1.2-3.4); MEAN CELL VOLUME 84.4 fL (80-100); MEAN CORPUSCULAR HGB CONC 30.7 g/dl (32-36); MEAN PLATELET VOLUME 10.7 fL (7.4-10.4); MONO % 7.2 %; NEUT % 75.3 %; PLATELET COUNT 211 K/uL (130-400); RED BLOOD COUNT 3.66 M/uL (4.2-5.4); WHITE BLOOD COUNT 9.91 K/uL (4.8-10.8)
[2017-08-15 07:35] LABS: BUN/CREATININE RATIO 11.9 (10-20); CALCIUM 8.1 mg/dl (8.5-10.1); CREATININE 0.79 mg/dl (0.60-1.20); POTASSIUM 3.7 mmol/L (3.5-5.1)
--- NOTE | 2017-08-15 08:02 | Gastrointestinal Consultation ---
Gastrointestinal Consultation Date of Consultation: Aug 15, 2017 Attending Physician: Lucian Consulting Physician: Nusrat Reason for Consultation: diverticulitis History of Present Illness Patient is a 72 year old female w/ history of HTN and diverticulitis s/p partial colon in 1999 resection who presented to the ED with 4 day history of generalized abdominal pain. Pt was seen and evaluated, chart reviewed. Pt tells me she recently had an EGD last week for upper GI symptoms, heme + stools and SANTI. She tolerated this procedure well and was d/c with PPI. A few days after procedure she woke up with generalized abdominal pain, worse in LLQ and around her belly button. Pain was constant, associated with nausea, constipation and bloating. Denies any upper GI symptoms. Pain was identical to previous episodes of diverticulitis. No fever, chills, CP, SOB, weight loss, black/bloody stools ABD CT 08/14/17: Inflammatory process involving the left lateral midabdomen. There is jejunal bowel wall thickening and significant infiltration of the associated mesentery. This is immediately adjacent to a diverticulum of the mid descending colon and there is mild associated colonic wall thickening. The position of the jejunum is unusual as it is located lateral to the descending colon. An internal hernia cannot be excluded. A primary jejunal process with secondary involvement of the colon is favored over diverticulitis with secondary involvement of the jejunum. Cholelithiasis Dilated right renal collecting system and pelvis the pattern suggestive a UPJ type obstruction ABD XR 08/14/17: normal EGD 08/06/17: Normal upper third of esophagus, middle third of esophagus and lower third of esophagus. LA Grade A reflux esophagitis. Biopsied. Small hiatal hernia. Gastritis. Biopsied. Normal examined duodenum. Biopsied. Past Medical/Surgical History abdominal pain, diverticulitis Past Medical History: diverticulitis, HTN Past Surgical History: partial bowel resection Social History Smoking Status: Never Smoker Drug Use: none Marital Status: Housing Status: lives with significant other Occupation Status: employed Allergies Uncoded Allergies: MEDIA CONTRAST (Allergy, Severe, parlaized, 08/02/17) CODINE (Allergy, Intermediate, swelling of the face, 08/02/17) Current Medications Home Meds and Scripts Medications Dose Route/Sig Max Daily Dose Days Date Category Hyzaar 25MG/100MG (HCTZ/Losartan Potassium) Tab 1 Tab PO DAILY 08/14/17 Reported Klor-Con Ext Rel (Potassium Chloride) 8 Meq Tabcr 8 Meq PO DAILY 08/14/17 Reported Protonix (Pantoprazole Sodium) 20 Mg Tab 40 Mg PO DAILY 08/02/17 Rx Review of Systems Constitutional: No fever, No chills Respiratory: No cough, No shortness of breath Cardiac: No chest pain, No edema Abdomen: + pain, + nausea, + constipation, No vomiting, No diarrhea, No GI bleeding Physical Exam Date Time Temp Pulse Resp B/P (MAP) Pulse Ox O2 Delivery O2 Flow Rate FiO2 08/15/17 04:37 36.8 80 18 137/79 (98) 95 Room Air 08/15/17 04:00 Room Air 08/14/17 23:59 Room Air 08/14/17 23:00 36.7 78 16 137/69 (91) 95 Room Air 08/14/17 21:00 36.5 77 18 160/68 (98) 98 Room Air 08/14/17 20:22 70 18 144/67 98 08/14/17 20:10 Room Air 08/14/17 19:50 63 18 106/59 98 Room Air 08/14/17 19:19 73 18 159/68 96 Room Air 08/14/17 17:58 68 18 148/109 97 Room Air 08/14/17 15:39 72 18 108/84 98 Room Air 08/14/17 14:40 66 16 140/75 97 Room Air 08/14/17 12:59 36.9 87 18 168/81 97 Room Air General Appearance: + mild distress (pt appears uncomfortable in bed, on arrival to her room surgery was rounding) Eyes: PERRL ENT: hearing grossly normal Neck: supple Respiratory/Chest: lungs clear, normal breath sounds Cardiovascular: regular rate, rhythm, no gallop Abdomen: normal bowel sounds, soft, no pulsatile mass, + tenderness ( tenderness > LLQ and periumbilical ) Neurologic/Psych: alert, normal mood/affect, oriented x 3 Skin: normal color, warm/dry Laboratory Results Last 24 Hours Test 08/14/17 13:30 08/14/17 13:37 08/14/17 14:20 08/15/17 06:22 White Blood Count 10.93 K/uL 9.91 K/uL Red Blood Count 4.25 M/uL 3.66 M/uL Hemoglobin 11.3 g/dL 9.5 g/dL Hematocrit 34.8 % 30.9 % Mean Corpuscular Volume 81.9 fL 84.4 fL Mean Corpuscular Hemoglobin 26.6 pg 26.0 pg Mean Corpuscular Hemoglobin Concent 32.5 g/dl 30.7 g/dl Platelet Count 234 K/uL 211 K/uL Mean Platelet Volume 10.8 fL 10.7 fL Neutrophils (%) (Auto) 78.7 % 75.3 % Lymphocytes (%) (Auto) 12.7 % 15.9 % Monocytes (%) (Auto) 6.4 % 7.2 % Eosinophils (%) (Auto) 1.5 % 1.1 % Basophils (%) (Auto) 0.4 % 0.2 % Neutrophils # (Auto) 8.61 K/uL 7.46 K/uL Lymphocytes # (Auto) 1.39 K/uL 1.58 K/uL Monocytes # (Auto) 0.70 K/uL 0.71 K/uL Eosinophils # (Auto) 0.16 K/uL 0.11 K/uL Basophils # (Auto) 0.04 K/uL 0.02 K/uL RDW Standard Deviation 49.0 fL 51.8 fL RDW Coefficient of Variation 16.4 % 16.8 % Immature Granulocyte % (Auto) 0.3 % 0.3 % Immature Granulocyte # (Auto) 0.03 K/uL 0.03 K/uL Sodium Level 141 mmol/L 142 mmol/L Potassium Level 3.0 mmol/L 3.7 mmol/L Chloride Level 106 mmol/L 109 mmol/L Carbon Dioxide Level 26 mmol/L 26 mmol/L Anion Gap 9.0 mmol/L 7.0 mmol/L Blood Urea Nitrogen 14 mg/dl 9 mg/dl Creatinine 0.98 mg/dl 0.79 mg/dl Est Creatinine Clear Calc Drug Dose 46.2 ml/min 56.1 ml/min Estimated GFR () 66.3 86.1 Estimated GFR (Non- 57.2 74.3 BUN/Creatinine Ratio 14.2 11.9 Random Glucose 171 mg/dl 117 mg/dl Calcium Level 9.2 mg/dl 8.1 mg/dl Total Bilirubin 0.5 mg/dl Direct Bilirubin 0.1 mg/dl Aspartate Amino Transf (AST/SGOT) 13 U/L Alanine Aminotransferase (ALT/SGPT) 17 U/L Alkaline Phosphatase 97 U/L Total Protein 7.0 gm/dl Albumin 3.5 gm/dl Lipase 153 U/L Bedside Lactic Acid Venous 1.89 mmol/L Urine Color YELLOW Urine Appearance CLEAR Urine pH 8.0 Urine Specific [place] 1.013 Urine Protein NEG Urine Glucose (UA) NEG Urine Ketones NEG Urine Occult Blood NEG Urine Nitrite NEG Urine Bilirubin NEG Urine Urobilinogen NEG Urine Leukocyte Esterase SMALL Urine WBC (Auto) 1-5 /hpf Urine RBC (Auto) 0-4 /hpf Urine Hyaline Casts (Auto) 1-5 /lpf Urine Epithelial Cells (Auto) 10-20 /lpf Urine Bacteria (Auto) NEG Impression Patient is a 72 year old female w/ history of diverticulitis s/p partial bowel resection in 1999 who presented with severe abdominal pain x 4 days associated with nausea, bloating and constipation. CT is suggestive of diverticulitis without abscess or perforation - general surgery is following and does not foresee any urgent surgical procedures at this time. Pt has a history of SANTI and heme + stools, her H&H 11.3/34 on arrival and 9.5 after IVF, no visible GIB. Her last colonoscopy was about 8 years ago per patient. Plan - Diverticulitis - bowel rest - IVF - electrolytes per primary service - antiemetics prn - analgesia prn - Cipro/Flagyl - appreciate surgery evaluation - colonoscopy in 6-8 weeks SANTI w/ heme + stools - EGD 08/06/17 w/ esophagitis - colonoscopy in 6-8 weeks GI will follow, please call with questions or concerns Attg add: I interviewed and examined pt, reviewed chart and labs. Pt with h/o mult abd surgeries, including diverticulitis s/p remote surgery She reports 3 mos of fatigue, anemia, and is s/p recent normal EGD. She had abrupt onset of L sided abd pain 3 days ago assoc with fever. Ct on admission shows thickening of left sided colon and thickening of adjacent loop of jejunum. Her presentation is most consistent with diverticulitis; I assume that the atypical appearance of the CT is related to her h/o prior surgery. It may also be possible, though less likely, that she has a primary disease in her jejunum ( acute mesenteric ishemia?? the relatively long duration of her symptoms argues against this; internal hernia?? unlikely, given absence of obstructive changes on CT). I cannot rule out neoplasm of colon or small intestine. For now, will rteat with abx and bowel rest. plan to repeat CT to f/u small bowel inflammation in 4 weeks, or sooner if her symptoms are slow to resolve, and cscopy in 4-6 weeks.
[2017-08-15 08:09] VITALS: BP 111/64; PULSE 78; TEMP 37; O2SAT 96
--- NOTE | 2017-08-15 08:47 | Surgery Progress Note ---
Surgery Progress Note Date of Service Aug 15, 2017. Subjective pt feels "about the same". feels reasonably ok when she is not moving/active. pain with movement. Objective Vital Signs: Date Time Temp Pulse Resp B/P (MAP) Pulse Ox O2 Delivery O2 Flow Rate FiO2 08/15/17 08:09 37.0 78 18 111/64 (80) 96 08/15/17 04:37 36.8 80 18 137/79 (98) 95 Room Air 08/15/17 04:00 Room Air 08/14/17 23:59 Room Air 08/14/17 23:00 36.7 78 16 137/69 (91) 95 Room Air 08/14/17 21:00 36.5 77 18 160/68 (98) 98 Room Air 08/14/17 20:22 70 18 144/67 98 08/14/17 20:10 Room Air 08/14/17 19:50 63 18 106/59 98 Room Air 08/14/17 19:19 73 18 159/68 96 Room Air 08/14/17 17:58 68 18 148/109 97 Room Air 08/14/17 15:39 72 18 108/84 98 Room Air 08/14/17 14:40 66 16 140/75 97 Room Air 08/14/17 12:59 36.9 87 18 168/81 97 Room Air General Appearance: + mild distress Head: normocephalic, atraumatic Neck: trachea midline Respiratory/Chest: no respiratory distress, no accessory muscle use Abdomen: + pertinent finding (mildly distended. +RUQ and right mid-abdominal tenderness. +guarding. no peritoneal signs. ) Laboratory Results: Results Past 24 Hours Test 08/14/17 13:30 08/14/17 13:37 08/14/17 14:20 08/15/17 06:22 Range/Units White Blood Count 10.93 9.91 4.8-10.8 K/uL Red Blood Count 4.25 3.66 4.2-5.4 M/uL Hemoglobin 11.3 9.5 12.0-16.0 g/dL Hematocrit 34.8 30.9 37-47 % Mean Corpuscular Volume 81.9 84.4 80-100 fL Mean Corpuscular Hemoglobin 26.6 26.0 25-34 pg Mean Corpuscular Hemoglobin Concent 32.5 30.7 32-36 g/dl Platelet Count 234 211 130-400 K/uL Mean Platelet Volume 10.8 10.7 7.4-10.4 fL Neutrophils (%) (Auto) 78.7 75.3 % Lymphocytes (%) (Auto) 12.7 15.9 % Monocytes (%) (Auto) 6.4 7.2 % Eosinophils (%) (Auto) 1.5 1.1 % Basophils (%) (Auto) 0.4 0.2 % Neutrophils # (Auto) 8.61 7.46 1.4-6.5 K/uL Lymphocytes # (Auto) 1.39 1.58 1.2-3.4 K/uL Monocytes # (Auto) 0.70 0.71 0.11-0.59 K/uL Eosinophils # (Auto) 0.16 0.11 0-0.5 K/uL Basophils # (Auto) 0.04 0.02 0-0.2 K/uL RDW Standard Deviation 49.0 51.8 36.4-46.3 fL RDW Coefficient of Variation 16.4 16.8 11.5-14.5 % Immature Granulocyte % (Auto) 0.3 0.3 % Immature Granulocyte # (Auto) 0.03 0.03 0.00-0.02 K/uL Sodium Level 141 142 136-145 mmol/L Potassium Level 3.0 3.7 3.5-5.1 mmol/L Chloride Level 106 109 98-107 mmol/L Carbon Dioxide Level 26 26 21-32 mmol/L Anion Gap 9.0 7.0 3-11 mmol/L Blood Urea Nitrogen 14 9 7-18 mg/dl Creatinine 0.98 0.79 0.60-1.20 mg/dl Est Creatinine Clear Calc Drug Dose 46.2 56.1 ml/min Estimated GFR () 66.3 86.1 Estimated GFR (Non- 57.2 74.3 BUN/Creatinine Ratio 14.2 11.9 10-20 Random Glucose 171 117 70-99 mg/dl Calcium Level 9.2 8.1 8.5-10.1 mg/dl Total Bilirubin 0.5 0.2-1 mg/dl Direct Bilirubin 0.1 0-0.2 mg/dl Aspartate Amino Transf (AST/SGOT) 13 15-37 U/L Alanine Aminotransferase (ALT/SGPT) 17 12-78 U/L Alkaline Phosphatase 97 45-117 U/L Total Protein 7.0 6.4-8.2 gm/dl Albumin 3.5 3.4-5.0 gm/dl Lipase 153 73-393 U/L Bedside Lactic Acid Venous 1.89 0.90-1.70 mmol/L Urine Color YELLOW Urine Appearance CLEAR CLEAR Urine pH 8.0 4.5-7.5 Urine Specific [place] 1.013 1.000-1.030 Urine Protein NEG NEG Urine Glucose (UA) NEG NEG Urine Ketones NEG NEG Urine Occult Blood NEG NEG Urine Nitrite NEG NEG Urine Bilirubin NEG NEG Urine Urobilinogen NEG NEG Urine Leukocyte Esterase SMALL NEG Urine WBC (Auto) 1-5 0-5 /hpf Urine RBC (Auto) 0-4 0-4 /hpf Urine Hyaline Casts (Auto) 1-5 0-5 /lpf Urine Epithelial Cells (Auto) 10-20 0-5 /lpf Urine Bacteria (Auto) NEG NEG Assessment & Plan suspect diverticulitis continue NPO/IV antibiotics/supportive care will continue to closely monitor
[2017-08-15] MEDS: CIPROFLOXACIN / D5W 400 MG in PREMIXED IN D5W 200 ML IV SCH ×2 (10:10→21:32)
[2017-08-15 12:11] VITALS: BP 126/83; PULSE 78; TEMP 36.7; O2SAT 93
[2017-08-15] MEDS: HYDROmorphone INJ 0.5 MG/0.5 ML SYR IV PRN ×2 (12:24→23:46)
[2017-08-15] MEDS: ACETAMINOPHEN IV 100 ML IV PRN ×2 (12:33→21:40)
[2017-08-15] MEDS ORDERED: NURSING DECISION MEDICATION ORDER SCH (13:00)
[2017-08-15] MEDS: PROMETHAZINE HCL INJ 12.5 MG in SODIUM CHLORIDE 0.9% 50ML 50 ML IV PRN (13:21)
[2017-08-15] MEDS ORDERED: NURSING VERBAL MED ORDER ONE (14:30)
[2017-08-15 15:16] VITALS: BP 134/55; PULSE 76; TEMP 36.9; O2SAT 95
--- NOTE | 2017-08-15 16:07 | Family Medicine Progress Note ---
Progress Note Date of Service Aug 15, 2017. Subjective Pt evaluation today including: conversation w/ patient, physical exam, chart review, conversation w/ [employer] ax consultant, review of inpatient medication list Pain: 5/10 PO Intake: NPO Voiding: no voiding problems Patient still with abdominal pain. She rates it as a 5/10 in severity. The pain is worse with movement She has been kept NPO, put on IVF and started on antibiotics Constitutional: No fever, No chills, No sweats Respiratory: No cough, No shortness of breath Cardiovascular: No chest pain, No claudication, No palpitations Abdomen: + pain, + nausea, No vomiting, No diarrhea, No constipation Female : No dysuria, No urinary frequency Heme: No abnormal bleeding/bruising Medications Current Inpatient Medications Medications (Trade) Dose Ordered Sig/Abby Route Start Time Stop Time Status Last Admin Dose Admin Hydromorphone HCl (Dilaudid Inj) 0.5 mg Q2H PRN IV 08/14/17 20:30 08/28/17 20:29 08/15/17 12:24 0.5 MG Ciprofloxacin/ Dextrose 400 mg/ Prmx 200 ml @ 100 mls/hr Q12H IV 08/14/17 22:00 08/24/17 21:59 08/15/17 10:10 100 MLS/HR Metronidazole 500 mg/Prmx 100 ml @ 100 mls/hr Q8H IV 08/14/17 22:00 08/24/17 21:59 08/15/17 13:22 100 MLS/HR Heparin Sodium (Porcine) (Heparin Sq 5000 Unit/0.5ml) 5,000 unit Q12 SQ 08/14/17 21:00 09/13/17 20:59 08/15/17 10:12 5,000 UNIT Acetaminophen (Tylenol Tab) 650 mg Q4H PRN PO 08/14/17 20:45 09/13/17 20:44 Magnesium Hydroxide (Milk Of Magnesia Susp) 30 ml Q12H PRN PO 08/14/17 20:45 09/13/17 20:44 Zolpidem Tartrate (Ambien Tab) 5 mg HSZ PRN PO 08/14/17 20:45 09/13/17 20:44 Ondansetron HCl (Zofran Inj) 4 mg Q6H PRN IV 08/14/17 20:45 09/13/17 20:44 08/15/17 11:44 4 MG Acetaminophen 100 ml @ 400 mls/hr Q8H PRN IV 08/14/17 21:00 09/13/17 20:59 08/15/17 12:33 400 MLS/HR Potassium Chloride/Sodium Chloride 1,000 ml @ 125 mls/hr Q8H IV 08/14/17 22:15 08/15/17 22:14 08/15/17 13:22 125 MLS/HR Promethazine HCl 12.5 mg/Sodium Chloride 50.5 ml @ 202 mls/hr Q6H PRN IV 08/15/17 13:00 09/14/17 12:59 08/15/17 13:21 202 MLS/HR Objective Vital Signs Date Time Temp Pulse Resp B/P (MAP) Pulse Ox O2 Delivery O2 Flow Rate FiO2 08/15/17 15:16 36.9 76 18 134/55 (81) 95 Room Air 08/15/17 12:11 36.7 78 16 126/83 (97) 93 Room Air 08/15/17 12:00 Room Air 08/15/17 08:09 37.0 78 18 111/64 (80) 96 08/15/17 08:00 Room Air 08/15/17 04:37 36.8 80 18 137/79 (98) 95 Room Air 08/15/17 04:00 Room Air 08/14/17 23:59 Room Air 08/14/17 23:00 36.7 78 16 137/69 (91) 95 Room Air 08/14/17 21:00 36.5 77 18 160/68 (98) 98 Room Air 08/14/17 20:22 70 18 144/67 98 08/14/17 20:10 Room Air 08/14/17 19:50 63 18 106/59 98 Room Air 08/14/17 19:19 73 18 159/68 96 Room Air 08/14/17 17:58 68 18 148/109 97 Room Air Physical Exam General Appearance: WD/WN, no apparent distress Respiratory/Chest: lungs clear, no respiratory distress, no accessory muscle use Cardiovascular: regular rate, rhythm, no edema, no JVD, no murmur Abdomen: normal bowel sounds, soft, + tenderness (diffuse tenderness to deep palpation, especially in LUQ), + pertinent finding (no rebound or guarding) Extremities: non-tender, no pedal edema, no calf tenderness, normal capillary refill Neurologic/Psychiatric: alert, normal mood/affect, oriented x 3 Skin: normal color, warm/dry, no rash Laboratory Results Results Past 24 Hours Test 08/15/17 06:22 Range/Units White Blood Count 9.91 4.8-10.8 K/uL Red Blood Count 3.66 4.2-5.4 M/uL Hemoglobin 9.5 12.0-16.0 g/dL Hematocrit 30.9 37-47 % Mean Corpuscular Volume 84.4 80-100 fL Mean Corpuscular Hemoglobin 26.0 25-34 pg Mean Corpuscular Hemoglobin Concent 30.7 32-36 g/dl Platelet Count 211 130-400 K/uL Mean Platelet Volume 10.7 7.4-10.4 fL Neutrophils (%) (Auto) 75.3 % Lymphocytes (%) (Auto) 15.9 % Monocytes (%) (Auto) 7.2 % Eosinophils (%) (Auto) 1.1 % Basophils (%) (Auto) 0.2 % Neutrophils # (Auto) 7.46 1.4-6.5 K/uL Lymphocytes # (Auto) 1.58 1.2-3.4 K/uL Monocytes # (Auto) 0.71 0.11-0.59 K/uL Eosinophils # (Auto) 0.11 0-0.5 K/uL Basophils # (Auto) 0.02 0-0.2 K/uL RDW Standard Deviation 51.8 36.4-46.3 fL RDW Coefficient of Variation 16.8 11.5-14.5 % Immature Granulocyte % (Auto) 0.3 % Immature Granulocyte # (Auto) 0.03 0.00-0.02 K/uL Sodium Level 142 136-145 mmol/L Potassium Level 3.7 3.5-5.1 mmol/L Chloride Level 109 98-107 mmol/L Carbon Dioxide Level 26 21-32 mmol/L Anion Gap 7.0 3-11 mmol/L Blood Urea Nitrogen 9 7-18 mg/dl Creatinine 0.79 0.60-1.20 mg/dl Est Creatinine Clear Calc Drug Dose 56.1 ml/min Estimated GFR () 86.1 Estimated GFR (Non- 74.3 BUN/Creatinine Ratio 11.9 10-20 Random Glucose 117 70-99 mg/dl Calcium Level 8.1 8.5-10.1 mg/dl Assessment and Plan 72 yo F with known diverticulitis who presents w/severe abdominal pain and inflammation on CT - likely diverticulitis at this time, per surgery will treat conservatively unless anything worsens. Diverticulitis Will continue pt on Cipro and Flagyl IV. NPO with IV fluids. For pain, IV Tylenol, IV Morphine 4mg for moderate pain, and IV dilaudid for severe pain. Zofran and phenergan IV for nausea Famotidine IV Q12 GI and Surgery on board - suggest continue to monitor patient and colonoscopy in 6-8 weeks Hypokalemia (resolved) K Edin given 3.7 this morning Hypertension Will provide hydralazine IV for SBP > 160 or DBP > 110 Hold home Cozaar/HCTZ combo Code status: Full Dispo: Telemetry VTE: Heparin Continued [facility] stay due to: multiple IV medications needed Reviewed: Pt Seen/Exam by Me History continue to be in severe pain. medications helping had severe nausea with morphine Constitutional: denies: fever Respiratory: negative: short of breath Cardiovascular: denies chest pain General Appearance: moderate distress Respiratory: lungs clear, no respiratory distress Cardiovascular: regular rate, rhythm Gastrointestinal: normal bowel sounds, soft, tenderness (whole left side) Neurologic/Psychiatric: alert, oriented x 3 Skin Characteristics: warm/dry Assessment/Plan Resident Physician Supervision Note: I was present with Dr. Farrar in bedside. I verified the babb history and physical, reviewed labs and image studies, discussed the case with the resident and agree with the findings and care plan.
--- NOTE | 2017-08-15 16:32 | DIAGNOSTIC IMAGING REPORT ---
DUPLEX MESENTERIC CLINICAL HISTORY: 72 years-old Female presenting with abdominal pain, abnormal CT. TECHNIQUE: Real-time grayscale ultrasound imaging of the mesenteric vessels was performed. Color and spectral Doppler were also performed. COMPARISON: CT of the abdomen and pelvis performed the previous day. FINDINGS: Aorta: Patent. Normal waveforms. Peak systolic velocity 127-138 cm/s. Celiac axis: Patent. Normal waveforms. Peak systolic velocity 161-217 cm/s. Hepatic artery: Patent. Normal waveforms. Peak systolic velocity 86 cm/s. Splenic artery: Patent. Normal waveforms. Peak systolic velocity 181 cm/s. Superior mesenteric artery: Patent. Normal waveforms. Peak systolic velocity 92-140 cm/s. Inferior mesenteric artery: Not visualized. IMPRESSION: 1. No hemodynamically significant stenosis the celiac axis or superior mesenteric artery. Remaining vessels patent and normal. Electronically signed by: Trey Vera M.D. 08/15/2017 4:30 PM Dictated Date/Time: 08/15/2017 4:23 PM
[2017-08-15 17:30] VITALS: BP 144/78; PULSE 78; TEMP 36.5; O2SAT 95; O2SAT 97
[2017-08-16 00:08] VITALS: BP 152/78; PULSE 86; TEMP 36.7; O2SAT 93
[2017-08-16] MEDS: METRONIDAZOLE / NSS 500 MG in PREMIXED NSS 100 ML IV SCH ×3 (05:31→21:47)
[2017-08-16] MEDS: ONDANSETRON INJ 2 MG/ML 2 ML VIAL IV PRN ×2 (05:43→13:02)
[2017-08-16 07:08] LABS: BASO % 0.5 %; BASO ABS # 0.03 K/uL (0-0.2); COMPLETE YES; EOS % 2.3 %; HEMATOCRIT 33.3 % (37-47); IG% 0.2 %; LYMPH % 19.1 %; LYMPH ABS # 1.14 K/uL (1.2-3.4); MEAN CELL VOLUME 84.3 fL (80-100); MEAN CORPUSCULAR HEMOGLOBIN 26.3 pg (25-34); MEAN CORPUSCULAR HGB CONC 31.2 g/dl (32-36); MEAN PLATELET VOLUME 11.1 fL (7.4-10.4); MONO % 7.9 %; PLATELET COUNT 186 K/uL (130-400); RED BLOOD COUNT 3.95 M/uL (4.2-5.4); WHITE BLOOD COUNT 5.96 K/uL (4.8-10.8)
[2017-08-16 07:49] LABS: BUN/CREATININE RATIO 8.9 (10-20); CALCIUM 8.7 mg/dl (8.5-10.1); CREATININE 0.75 mg/dl (0.60-1.20); POTASSIUM 3.5 mmol/L (3.5-5.1)
[2017-08-16 07:56] VITALS: BP 163/52; PULSE 86; TEMP 37; O2SAT 95
--- NOTE | 2017-08-16 08:38 | Surgery Progress Note ---
Surgery Progress Note Date of Service Aug 16, 2017. Subjective pt finally starting to feel better. denies pain but is scrap kettle tender/"sore" with some activity. +BM this AM Objective Vital Signs: Date Time Temp Pulse Resp B/P (MAP) Pulse Ox O2 Delivery O2 Flow Rate FiO2 08/16/17 07:56 37.0 86 18 163/52 (89) 95 Room Air 08/16/17 00:15 Room Air 08/16/17 00:08 36.7 86 18 152/78 (102) 93 Room Air 08/15/17 17:30 95 Room Air 08/15/17 17:30 36.5 78 18 144/78 (100) 97 Room Air 08/15/17 16:00 Room Air 08/15/17 15:16 36.9 76 18 134/55 (81) 95 Room Air 08/15/17 12:11 36.7 78 16 126/83 (97) 93 Room Air 08/15/17 12:00 Room Air General Appearance: no apparent distress Head: normocephalic, atraumatic Respiratory/Chest: no respiratory distress, no accessory muscle use Abdomen: soft, + pertinent finding (less distended. soft. +right mid-abdominal ttp but improved. no peritoneal signs. ) Extremities: no pedal edema Laboratory Results: Results Past 24 Hours Test 08/16/17 06:45 Range/Units White Blood Count 5.96 4.8-10.8 K/uL Red Blood Count 3.95 4.2-5.4 M/uL Hemoglobin 10.4 12.0-16.0 g/dL Hematocrit 33.3 37-47 % Mean Corpuscular Volume 84.3 80-100 fL Mean Corpuscular Hemoglobin 26.3 25-34 pg Mean Corpuscular Hemoglobin Concent 31.2 32-36 g/dl Platelet Count 186 130-400 K/uL Mean Platelet Volume 11.1 7.4-10.4 fL Neutrophils (%) (Auto) 70.0 % Lymphocytes (%) (Auto) 19.1 % Monocytes (%) (Auto) 7.9 % Eosinophils (%) (Auto) 2.3 % Basophils (%) (Auto) 0.5 % Neutrophils # (Auto) 4.17 1.4-6.5 K/uL Lymphocytes # (Auto) 1.14 1.2-3.4 K/uL Monocytes # (Auto) 0.47 0.11-0.59 K/uL Eosinophils # (Auto) 0.14 0-0.5 K/uL Basophils # (Auto) 0.03 0-0.2 K/uL RDW Standard Deviation 50.7 36.4-46.3 fL RDW Coefficient of Variation 16.4 11.5-14.5 % Immature Granulocyte % (Auto) 0.2 % Immature Granulocyte # (Auto) 0.01 0.00-0.02 K/uL Sodium Level 140 136-145 mmol/L Potassium Level 3.5 3.5-5.1 mmol/L Chloride Level 107 98-107 mmol/L Carbon Dioxide Level 25 21-32 mmol/L Anion Gap 8.0 3-11 mmol/L Blood Urea Nitrogen 7 7-18 mg/dl Creatinine 0.75 0.60-1.20 mg/dl Est Creatinine Clear Calc Drug Dose 59.1 ml/min Estimated GFR () 91.7 Estimated GFR (Non- 79.1 BUN/Creatinine Ratio 8.9 10-20 Random Glucose 112 70-99 mg/dl Calcium Level 8.7 8.5-10.1 mg/dl Assessment & Plan 08/16/17 appears to be turning the corner afebrile/wbc normal pain improved +BM would keep NPO/ice chips today yet cont IV antibiotics [facility] covering for weekend. 08/15/17 suspect diverticulitis continue NPO/IV antibiotics/supportive care will continue to closely monitor suspect diverticulitis continue NPO/IV antibiotics/supportive care will continue to closely monitor
[2017-08-16] MEDS: HEPARIN SOD 5000 UNIT/0.5 ML CARP SQ SCH ×2 (09:11→22:01)
--- NOTE | 2017-08-16 09:46 | Gastroenterology Progress Note ---
Progress Note Date of Service: Aug 16, 2017 Subjective Pt evaluation today including: conversation w/ patient, physical exam, chart review, lab review Pt seen and evaluated, chart reviewed. She tells me her symptoms are 25% improved from yesterday. She no longer has the same abdominal pain, but rather expresses soreness. This is constant and generalized but worse in LLQ. Moving her bowels, 2 stools. These are formed and dark brown. She tells me she was on BID dosing of iron but stopped this about a week ago. Had some mild nausea overnight, no vomiting. Mesenteric duplex: Aorta: Patent. Normal waveforms. Peak systolic velocity 127- 138 cm/s. Celiac axis: Patent. Normal waveforms. Peak systolic velocity 161-217 cm/s. Hepatic artery: Patent. Normal waveforms. Peak systolic velocity 86 cm/s. Splenic artery: Patent. Normal waveforms. Peak systolic velocity 181 cm/s. Superior mesenteric artery: Patent. Normal waveforms. Peak systolic velocity 92- 140 cm/s. inferior mesenteric artery: Not visualized.No hemodynamically significant stenosis the celiac axis or superior mesenteric artery. Remaining vessels patent and normal. Review of Systems Constitutional: No fever, No chills Respiratory: No cough, No shortness of breath Cardiac: No chest pain, No edema Abdomen: + pain, + nausea, No vomiting, No diarrhea, No constipation, No GI bleeding Medications Current Inpatient Medications Medications (Trade) Dose Ordered Sig/Abby Route Start Time Stop Time Status Last Admin Dose Admin Hydromorphone HCl (Dilaudid Inj) 0.5 mg Q2H PRN IV 08/14/17 20:30 08/28/17 20:29 08/15/17 23:46 0.5 MG Ciprofloxacin/ Dextrose 400 mg/ Prmx 200 ml @ 100 mls/hr Q12H IV 08/14/17 22:00 08/24/17 21:59 08/15/17 21:32 100 MLS/HR Metronidazole 500 mg/Prmx 100 ml @ 100 mls/hr Q8H IV 08/14/17 22:00 08/24/17 21:59 08/16/17 05:31 100 MLS/HR Heparin Sodium (Porcine) (Heparin Sq 5000 Unit/0.5ml) 5,000 unit Q12 SQ 08/14/17 21:00 09/13/17 20:59 08/16/17 09:11 5,000 UNIT Acetaminophen (Tylenol Tab) 650 mg Q4H PRN PO 08/14/17 20:45 09/13/17 20:44 Magnesium Hydroxide (Milk Of Magnesia Susp) 30 ml Q12H PRN PO 08/14/17 20:45 09/13/17 20:44 Zolpidem Tartrate (Ambien Tab) 5 mg HSZ PRN PO 08/14/17 20:45 09/13/17 20:44 Ondansetron HCl (Zofran Inj) 4 mg Q6H PRN IV 08/14/17 20:45 09/13/17 20:44 08/16/17 05:43 4 MG Acetaminophen 100 ml @ 400 mls/hr Q8H PRN IV 08/14/17 21:00 09/13/17 20:59 08/15/17 21:40 400 MLS/HR Promethazine HCl 12.5 mg/Sodium Chloride 50.5 ml @ 202 mls/hr Q6H PRN IV 08/15/17 13:00 09/14/17 12:59 08/15/17 13:21 202 MLS/HR Objective Vital Signs Date Time Temp Pulse Resp B/P (MAP) Pulse Ox O2 Delivery O2 Flow Rate FiO2 08/16/17 07:56 37.0 86 18 163/52 (89) 95 Room Air 08/16/17 00:15 Room Air 08/16/17 00:08 36.7 86 18 152/78 (102) 93 Room Air 08/15/17 17:30 95 Room Air 08/15/17 17:30 36.5 78 18 144/78 (100) 97 Room Air 08/15/17 16:00 Room Air 08/15/17 15:16 36.9 76 18 134/55 (81) 95 Room Air 08/15/17 12:11 36.7 78 16 126/83 (97) 93 Room Air 08/15/17 12:00 Room Air Physical Exam General Appearance: + mild distress (pt appears uncomfortable sitting upright in bed) Eyes: PERRL ENT: hearing grossly normal Neck: supple Respiratory/Chest: lungs clear, normal breath sounds Cardiovascular: regular rate, rhythm Abdomen: normal bowel sounds, soft, no organomegaly, + tenderness Neurologic/Psych: alert, normal mood/affect, oriented x 3 Skin: normal color, no jaundice Laboratory Results Last 24 Hours Test 08/16/17 06:45 White Blood Count 5.96 K/uL Red Blood Count 3.95 M/uL Hemoglobin 10.4 g/dL Hematocrit 33.3 % Mean Corpuscular Volume 84.3 fL Mean Corpuscular Hemoglobin 26.3 pg Mean Corpuscular Hemoglobin Concent 31.2 g/dl Platelet Count 186 K/uL Mean Platelet Volume 11.1 fL Neutrophils (%) (Auto) 70.0 % Lymphocytes (%) (Auto) 19.1 % Monocytes (%) (Auto) 7.9 % Eosinophils (%) (Auto) 2.3 % Basophils (%) (Auto) 0.5 % Neutrophils # (Auto) 4.17 K/uL Lymphocytes # (Auto) 1.14 K/uL Monocytes # (Auto) 0.47 K/uL Eosinophils # (Auto) 0.14 K/uL Basophils # (Auto) 0.03 K/uL RDW Standard Deviation 50.7 fL RDW Coefficient of Variation 16.4 % Immature Granulocyte % (Auto) 0.2 % Immature Granulocyte # (Auto) 0.01 K/uL Sodium Level 140 mmol/L Potassium Level 3.5 mmol/L Chloride Level 107 mmol/L Carbon Dioxide Level 25 mmol/L Anion Gap 8.0 mmol/L Blood Urea Nitrogen 7 mg/dl Creatinine 0.75 mg/dl Est Creatinine Clear Calc Drug Dose 59.1 ml/min Estimated GFR () 91.7 Estimated GFR (Non- 79.1 BUN/Creatinine Ratio 8.9 Random Glucose 112 mg/dl Calcium Level 8.7 mg/dl Assessment and Plan Patient is a 72 year old female w/ history of diverticulitis s/p partial bowel resection in 1999 who presented with severe abdominal pain x 4 days associated with nausea, bloating and constipation. CT is suggestive of diverticulitis without abscess or perforation - general surgery is following and does not foresee any urgent surgical procedures at this time. Pt has a history of SANTI and heme + stools, her H&H 11.334 on arrival and 9.04/23 after IVF, no visible GIB. Her last colonoscopy was about 8 years ago per patient. - Diverticulitis - bowel rest, will advance per surgical recommendation - IVF - electrolytes per primary service - antiemetics prn - analgesia prn - Cipro/Flagyl - appreciate surgery evaluation - CT abd/pelvis w/ contrast in 4 weeks - colonoscopy in 6-8 weeks SANTI w/ heme + stools - EGD 08/06/17 w/ esophagitis - colonoscopy in 6-8 weeks Please call with any questions or concerns. ATTESTATION: I have performed a history and physical examination of this patient and reviewed the electronic record. Specifically, on physical examination there is mild diffuse abdominal tenderness. I have discussed the case with MUNIRA Wang. The above note reflects my findings, conclusions, and recommendations. Patrick Keane MD
[2017-08-16] MEDS: CIPROFLOXACIN / D5W 400 MG in PREMIXED IN D5W 200 ML IV SCH ×2 (10:02→21:49)
[2017-08-16 11:14] VITALS: TEMP 36.6
--- NOTE | 2017-08-16 11:17 | Family Medicine Progress Note ---
Progress Note Date of Service Aug 16, 2017. Subjective Pt evaluation today including: conversation w/ patient, physical exam, chart review, lab review, conversation w/ library sales consultant, review of inpatient medication list Pain: mild PO Intake: NPO Voiding: no voiding problems Patient's abdominal pain is much improved She is still having some fevers and chills Had a small bowel movement this morning that was dark in colour She has not vomited but feels nauseated. She has not asked the nurse for nausea meds. I informed her to do so. Constitutional: + chills, + sweats, + fatigue, No fever Respiratory: No cough, No shortness of breath Cardiovascular: No chest pain, No edema, No palpitations Abdomen: + pain, + nausea, No vomiting, No diarrhea, No constipation Female : No dysuria, No urinary frequency, No hematuria Heme: No abnormal bleeding/bruising Medications Current Inpatient Medications Medications (Trade) Dose Ordered Sig/Abby Route Start Time Stop Time Status Last Admin Dose Admin Hydromorphone HCl (Dilaudid Inj) 0.5 mg Q2H PRN IV 08/14/17 20:30 08/28/17 20:29 08/15/17 23:46 0.5 MG Ciprofloxacin/ Dextrose 400 mg/ Prmx 200 ml @ 100 mls/hr Q12H IV 08/14/17 22:00 08/24/17 21:59 08/16/17 10:02 100 MLS/HR Metronidazole 500 mg/Prmx 100 ml @ 100 mls/hr Q8H IV 08/14/17 22:00 08/24/17 21:59 08/16/17 05:31 100 MLS/HR Heparin Sodium (Porcine) (Heparin Sq 5000 Unit/0.5ml) 5,000 unit Q12 SQ 08/14/17 21:00 09/13/17 20:59 08/16/17 09:11 5,000 UNIT Acetaminophen (Tylenol Tab) 650 mg Q4H PRN PO 08/14/17 20:45 09/13/17 20:44 Magnesium Hydroxide (Milk Of Magnesia Susp) 30 ml Q12H PRN PO 08/14/17 20:45 09/13/17 20:44 Zolpidem Tartrate (Ambien Tab) 5 mg HSZ PRN PO 08/14/17 20:45 09/13/17 20:44 Ondansetron HCl (Zofran Inj) 4 mg Q6H PRN IV 08/14/17 20:45 09/13/17 20:44 08/16/17 05:43 4 MG Acetaminophen 100 ml @ 400 mls/hr Q8H PRN IV 08/14/17 21:00 09/13/17 20:59 08/15/17 21:40 400 MLS/HR Promethazine HCl 12.5 mg/Sodium Chloride 50.5 ml @ 202 mls/hr Q6H PRN IV 08/15/17 13:00 09/14/17 12:59 08/15/17 13:21 202 MLS/HR Objective Vital Signs Date Time Temp Pulse Resp B/P (MAP) Pulse Ox O2 Delivery O2 Flow Rate FiO2 08/16/17 07:56 37.0 86 18 163/52 (89) 95 Room Air 08/16/17 00:15 Room Air 08/16/17 00:08 36.7 86 18 152/78 (102) 93 Room Air 08/15/17 17:30 95 Room Air 08/15/17 17:30 36.5 78 18 144/78 (100) 97 Room Air 08/15/17 16:00 Room Air 08/15/17 15:16 36.9 76 18 134/55 (81) 95 Room Air 08/15/17 12:11 36.7 78 16 126/83 (97) 93 Room Air 08/15/17 12:00 Room Air Physical Exam General Appearance: WD/WN, no apparent distress ENT: hearing grossly normal, pharynx normal Respiratory/Chest: lungs clear, no respiratory distress, no accessory muscle use Cardiovascular: regular rate, rhythm, no JVD, no murmur Abdomen: normal bowel sounds, soft, + tenderness (tenderness to deep palpation throughout and more prominent in LUQ) Extremities: non-tender, no pedal edema, no calf tenderness, normal capillary refill Neurologic/Psychiatric: alert, normal mood/affect, oriented x 3 Laboratory Results Results Past 24 Hours Test 08/16/17 06:45 Range/Units White Blood Count 5.96 4.8-10.8 K/uL Red Blood Count 3.95 4.2-5.4 M/uL Hemoglobin 10.4 12.0-16.0 g/dL Hematocrit 33.3 37-47 % Mean Corpuscular Volume 84.3 80-100 fL Mean Corpuscular Hemoglobin 26.3 25-34 pg Mean Corpuscular Hemoglobin Concent 31.2 32-36 g/dl Platelet Count 186 130-400 K/uL Mean Platelet Volume 11.1 7.4-10.4 fL Neutrophils (%) (Auto) 70.0 % Lymphocytes (%) (Auto) 19.1 % Monocytes (%) (Auto) 7.9 % Eosinophils (%) (Auto) 2.3 % Basophils (%) (Auto) 0.5 % Neutrophils # (Auto) 4.17 1.4-6.5 K/uL Lymphocytes # (Auto) 1.14 1.2-3.4 K/uL Monocytes # (Auto) 0.47 0.11-0.59 K/uL Eosinophils # (Auto) 0.14 0-0.5 K/uL Basophils # (Auto) 0.03 0-0.2 K/uL RDW Standard Deviation 50.7 36.4-46.3 fL RDW Coefficient of Variation 16.4 11.5-14.5 % Immature Granulocyte % (Auto) 0.2 % Immature Granulocyte # (Auto) 0.01 0.00-0.02 K/uL Sodium Level 140 136-145 mmol/L Potassium Level 3.5 3.5-5.1 mmol/L Chloride Level 107 98-107 mmol/L Carbon Dioxide Level 25 21-32 mmol/L Anion Gap 8.0 3-11 mmol/L Blood Urea Nitrogen 7 7-18 mg/dl Creatinine 0.75 0.60-1.20 mg/dl Est Creatinine Clear Calc Drug Dose 59.1 ml/min Estimated GFR () 91.7 Estimated GFR (Non- 79.1 BUN/Creatinine Ratio 8.9 10-20 Random Glucose 112 70-99 mg/dl Calcium Level 8.7 8.5-10.1 mg/dl Assessment and Plan 72 yo F with known diverticulitis who presents w/severe abdominal pain and inflammation on CT - likely diverticulitis at this time, per surgery will treat conservatively unless anything worsens. Diverticulitis Will continue pt on Cipro and Flagyl IV. NPO with IV fluids. For pain, IV Tylenol, IV Morphine 4mg for moderate pain, and IV dilaudid for severe pain. Zofran and phenergan IV for nausea Famotidine IV Q12 GI and Surgery on board - suggest continue to monitor patient and colonoscopy in 6-[address] abd/pelvis with contrast in 4wks. Resume liquid diet tomorrow, otherwise will remain NPO with ice chips and sips today Hypokalemia (resolved) K Edin given 3.5 this morning Hypertension Will provide hydralazine IV for SBP > 160 or DBP > 110 Hold home Cozaar/HCTZ combo Code status: Full Dispo: Telemetry VTE: Heparin Continued [facility] stay due to: inadequate oral pain control, multiple IV medications needed Reviewed: Pt Seen/Exam by Me History abdominal pain controlled nausea better Constitutional: denies: fever Respiratory: negative: short of breath Cardiovascular: denies chest pain General Appearance: no apparent distress Respiratory: lungs clear, no respiratory distress Cardiovascular: regular rate, rhythm Gastrointestinal: normal bowel sounds, soft, tenderness (left side) Neurologic/Psychiatric: alert, oriented x 3 Skin Characteristics: warm/dry Assessment/Plan Resident Physician Supervision Note: I was present with Dr. Farrar in bedside. I verified the babb history and physical, reviewed labs and image studies, discussed the case with the resident and agree with the findings and care plan.
[2017-08-16] MEDS: HYDROmorphone INJ 0.5 MG/0.5 ML SYR IV PRN (13:03)
[2017-08-16] MEDS: PROMETHAZINE HCL INJ 12.5 MG in SODIUM CHLORIDE 0.9% 50ML 50 ML IV PRN (14:48)
[2017-08-16 16:00] VITALS: O2SAT 95
[2017-08-16 16:02] VITALS: BP 160/68; PULSE 72; TEMP 37.1; O2SAT 98
[2017-08-16 23:50] VITALS: BP 156/69; PULSE 82; TEMP 37.2; O2SAT 95
[2017-08-17] MEDS: METRONIDAZOLE / NSS 500 MG in PREMIXED NSS 100 ML IV SCH ×3 (05:48→21:59)
[2017-08-17 06:24] LABS: BASO % 0.8 %; BASO ABS # 0.06 K/uL (0-0.2); COMPLETE YES; EOS % 2.6 %; HEMATOCRIT 35.5 % (37-47); IG% 0.1 %; LYMPH ABS # 1.46 K/uL (1.2-3.4); MEAN CELL VOLUME 82.4 fL (80-100); MEAN CORPUSCULAR HEMOGLOBIN 25.8 pg (25-34); MEAN CORPUSCULAR HGB CONC 31.3 g/dl (32-36); MEAN PLATELET VOLUME 11.2 fL (7.4-10.4); MONO % 8.5 %; PLATELET COUNT 236 K/uL (130-400); RED BLOOD COUNT 4.31 M/uL (4.2-5.4); WHITE BLOOD COUNT 7.31 K/uL (4.8-10.8)
[2017-08-17 07:01] LABS: BUN/CREATININE RATIO 13.5 (10-20); CALCIUM 8.7 mg/dl (8.5-10.1); CREATININE 0.71 mg/dl (0.60-1.20); POTASSIUM 3.1 mmol/L (3.5-5.1)
[2017-08-17 07:30] VITALS: BP 132/70; PULSE 74; TEMP 36.8; O2SAT 98
--- NOTE | 2017-08-17 08:54 | Surgery Progress Note ---
Surgery Progress Note Date of Service Aug 17, 2017. Subjective Post OP Day: + feeling well, + bowel movement, + flatus, + diet (sips), No complaints, No nausea, No vomiting Objective Vital Signs: Date Time Temp Pulse Resp B/P (MAP) Pulse Ox O2 Delivery O2 Flow Rate FiO2 08/17/17 07:30 36.8 74 18 132/70 (90) 98 Room Air 08/17/17 00:00 Room Air 08/16/17 23:50 37.2 82 18 156/69 (98) 95 Room Air 08/16/17 16:02 37.1 72 18 160/68 (98) 98 Room Air 08/16/17 16:00 95 Room Air 08/16/17 11:14 36.6 General Appearance: WD/WN, no apparent distress Head: normocephalic, atraumatic Neck: supple, trachea midline Respiratory/Chest: chest non-tender, lungs clear Cardiovascular: regular rate, rhythm, no gallop, no murmur Abdomen: normal bowel sounds, non distended, soft, + tenderness (mild) Extremities: non-tender, no pedal edema Laboratory Results: Results Past 24 Hours Test 08/17/17 05:54 Range/Units White Blood Count 7.31 4.8-10.8 K/uL Red Blood Count 4.31 4.2-5.4 M/uL Hemoglobin 11.1 12.0-16.0 g/dL Hematocrit 35.5 37-47 % Mean Corpuscular Volume 82.4 80-100 fL Mean Corpuscular Hemoglobin 25.8 25-34 pg Mean Corpuscular Hemoglobin Concent 31.3 32-36 g/dl Platelet Count 236 130-400 K/uL Mean Platelet Volume 11.2 7.4-10.4 fL Neutrophils (%) (Auto) 68.0 % Lymphocytes (%) (Auto) 20.0 % Monocytes (%) (Auto) 8.5 % Eosinophils (%) (Auto) 2.6 % Basophils (%) (Auto) 0.8 % Neutrophils # (Auto) 4.97 1.4-6.5 K/uL Lymphocytes # (Auto) 1.46 1.2-3.4 K/uL Monocytes # (Auto) 0.62 0.11-0.59 K/uL Eosinophils # (Auto) 0.19 0-0.5 K/uL Basophils # (Auto) 0.06 0-0.2 K/uL RDW Standard Deviation 48.4 36.4-46.3 fL RDW Coefficient of Variation 16.0 11.5-14.5 % Immature Granulocyte % (Auto) 0.1 % Immature Granulocyte # (Auto) 0.01 0.00-0.02 K/uL Sodium Level 139 136-145 mmol/L Potassium Level 3.1 3.5-5.1 mmol/L Chloride Level 106 98-107 mmol/L Carbon Dioxide Level 23 21-32 mmol/L Anion Gap 10.0 3-11 mmol/L Blood Urea Nitrogen 10 7-18 mg/dl Creatinine 0.71 0.60-1.20 mg/dl Est Creatinine Clear Calc Drug Dose 62.4 ml/min Estimated GFR () 97.9 Estimated GFR (Non- 84.5 BUN/Creatinine Ratio 13.5 10-20 Random Glucose 99 70-99 mg/dl Calcium Level 8.7 8.5-10.1 mg/dl Assessment & Plan recurrent diverticulitis/SBO v. ileus -multiple BMs -feeling better -will begin clears -ambulate -IV abx
--- NOTE | 2017-08-17 08:57 | Family Medicine Progress Note ---
Progress Note Date of Service Aug 17, 2017. Subjective Pt evaluation today including: conversation w/ patient, physical exam, chart review, lab review, review of inpatient medication list Pain: 3/10 abdominal pain PO Intake: small clear Voiding: no voiding problems Patient feeling much better, pain now down to 3/10 from 8/10 yesterday. Had vomiting yesterday but feeling well this morning and tolerating small amount of clear fluids already ordered by surgery. All Other Systems: Reviewed and Negative Medications Current Inpatient Medications Medications (Trade) Dose Ordered Sig/Abby Route Start Time Stop Time Status Last Admin Dose Admin Hydromorphone HCl (Dilaudid Inj) 0.5 mg Q2H PRN IV 08/14/17 20:30 08/28/17 20:29 08/16/17 13:03 0.5 MG Ciprofloxacin/ Dextrose 400 mg/ Prmx 200 ml @ 100 mls/hr Q12H IV 08/14/17 22:00 08/24/17 21:59 08/16/17 21:49 100 MLS/HR Metronidazole 500 mg/Prmx 100 ml @ 100 mls/hr Q8H IV 08/14/17 22:00 08/24/17 21:59 08/17/17 05:48 100 MLS/HR Heparin Sodium (Porcine) (Heparin Sq 5000 Unit/0.5ml) 5,000 unit Q12 SQ 08/14/17 21:00 09/13/17 20:59 08/16/17 22:01 5,000 UNIT Acetaminophen (Tylenol Tab) 650 mg Q4H PRN PO 08/14/17 20:45 09/13/17 20:44 Magnesium Hydroxide (Milk Of Magnesia Susp) 30 ml Q12H PRN PO 08/14/17 20:45 09/13/17 20:44 Zolpidem Tartrate (Ambien Tab) 5 mg HSZ PRN PO 08/14/17 20:45 09/13/17 20:44 Ondansetron HCl (Zofran Inj) 4 mg Q6H PRN IV 08/14/17 20:45 09/13/17 20:44 08/16/17 13:02 4 MG Acetaminophen 100 ml @ 400 mls/hr Q8H PRN IV 08/14/17 21:00 09/13/17 20:59 08/15/17 21:40 400 MLS/HR Promethazine HCl 12.5 mg/Sodium Chloride 50.5 ml @ 202 mls/hr Q6H PRN IV 08/15/17 13:00 09/14/17 12:59 08/16/17 14:48 202 MLS/HR Objective Vital Signs Date Time Temp Pulse Resp B/P (MAP) Pulse Ox O2 Delivery O2 Flow Rate FiO2 08/17/17 07:30 36.8 74 18 132/70 (90) 98 Room Air 08/17/17 00:00 Room Air 08/16/17 23:50 37.2 82 18 156/69 (98) 95 Room Air 08/16/17 16:02 37.1 72 18 160/68 (98) 98 Room Air 08/16/17 16:00 95 Room Air 08/16/17 11:14 36.6 Physical Exam General Appearance: WD/WN, no apparent distress Eyes: normal inspection ENT: pharynx normal Neck: supple, trachea midline Respiratory/Chest: chest non-tender, lungs clear, normal breath sounds, no respiratory distress, no accessory muscle use Cardiovascular: regular rate, rhythm, no murmur Abdomen: normal bowel sounds, soft, + tenderness (left lower quadrant no guarding or rebound) Extremities: no pedal edema, no calf tenderness Neurologic/Psychiatric: repairer helper II-XII nml as tested, no motor/sensory deficits, alert, oriented x 3 Skin: normal color, warm/dry, no rash Laboratory Results 08/17/17 05:54 Red Blood Count 4.31, Mean Corpuscular Volume 82.4, Mean Corpuscular Hemoglobin 25.8, Mean Corpuscular Hemoglobin Concent 31.3, Mean Platelet Volume 11.2, Neutrophils (%) (Auto) 68.0, Lymphocytes (%) (Auto) 20.0, Monocytes (%) (Auto) 8.5, Eosinophils (%) (Auto) 2.6, Basophils (%) (Auto) 0.8, Neutrophils # (Auto) 4.97, Lymphocytes # (Auto) 1.46, Monocytes # (Auto) 0.62, Eosinophils # (Auto) 0.19, Basophils # (Auto) 0.06 08/17/17 05:54 Test 08/17/17 05:54 White Blood Count 7.31 K/uL (4.8-10.8) Red Blood Count 4.31 M/uL (4.2-5.4) Hemoglobin 11.1 g/dL (12.0-16.0) Hematocrit 35.5 % (37-47) Mean Corpuscular Volume 82.4 fL (80-100) Mean Corpuscular Hemoglobin 25.8 pg (25-34) Mean Corpuscular Hemoglobin Concent 31.3 g/dl (32-36) Platelet Count 236 K/uL (130-400) Mean Platelet Volume 11.2 fL (7.4-10.4) Neutrophils (%) (Auto) 68.0 % Lymphocytes (%) (Auto) 20.0 % Monocytes (%) (Auto) 8.5 % Eosinophils (%) (Auto) 2.6 % Basophils (%) (Auto) 0.8 % Neutrophils # (Auto) 4.97 K/uL (1.4-6.5) Lymphocytes # (Auto) 1.46 K/uL (1.2-3.4) Monocytes # (Auto) 0.62 K/uL (0.11-0.59) Eosinophils # (Auto) 0.19 K/uL (0-0.5) Basophils # (Auto) 0.06 K/uL (0-0.2) RDW Standard Deviation 48.4 fL (36.4-46.3) RDW Coefficient of Variation 16.0 % (11.5-14.5) Immature Granulocyte % (Auto) 0.1 % Immature Granulocyte # (Auto) 0.01 K/uL (0.00-0.02) Anion Gap 10.0 mmol/L (3-11) Est Creatinine Clear Calc Drug Dose 62.4 ml/min Estimated GFR () 97.9 Estimated GFR (Non- 84.5 BUN/Creatinine Ratio 13.5 (10-20) Calcium Level 8.7 mg/dl (8.5-10.1) Assessment and Plan 72 yo female with known diverticulosis who presents w/severe abdominal pain and inflammation on CT - likely diverticulitis. Diverticulitis - Continue IV Cipro and Flagyl given vomiting yesterday. - Clear fluids as ordered by surgery - pain, IV Tylenol, IV Dilaudid for severe pain. - Zofran and phenergan IV for nausea - Famotidine IV Q12 - GI and Surgery consulted - Recommend colonoscopy in 6-8 weeks - CT abd/pelvis with contrast in 4wks. Hypokalemia - usually on Potassium supplementation as outpatient - give NSS + 40meq KCl 100 MLS/HR 2L then stop Hypertension - Restart outpatient Cozaar/HCTZ - continue hydralazine IV for SBP > 160 or DBP > 110 Esophagitis - continue home dose of pantoprazole VTE Prophylaxis - Heparin 5000 units Q12H Code: Full Disposition: - continue on med/surg due to need for IV medication Resident Tracking Resident Involvement: Resident Care Provided Care Provided: Adult Hospital Medicine Reviewed: Pt Seen/Exam by Me History abdominal pain improving Constitutional: denies: fever Respiratory: negative: short of breath Cardiovascular: denies chest pain General Appearance: no apparent distress Respiratory: lungs clear, no respiratory distress Cardiovascular: regular rate, rhythm Gastrointestinal: normal bowel sounds, soft, tenderness (left side) Neurologic/Psychiatric: alert, oriented x 3 Assessment/Plan Resident Physician Supervision Note: I was present with Dr. Arias in bedside. I verified the babb history and physical, reviewed labs and image studies, discussed the case with the resident and agree with the findings and care plan.
[2017-08-17] MEDS: HEPARIN SOD 5000 UNIT/0.5 ML CARP SQ SCH ×2 (09:48→20:41)
[2017-08-17] MEDS: CIPROFLOXACIN / D5W 400 MG in PREMIXED IN D5W 200 ML IV SCH ×2 (09:53→21:59)
[2017-08-17] MEDS ORDERED: PANTOprazole SOD 40 MG TAB PO ONE (10:30)
[2017-08-17] MEDS: POTASSIUM CHLORIDE INJ 40 MEQ in SODIUM CHLORIDE 0.9% 1000ML 1,000 ML IV SCH ×2 (11:06→20:41)
--- NOTE | 2017-08-17 11:20 | GASTROENTEROLOGY PROGRESS NOTE ---
DATE: 08/17/2017 OBJECTIVE: Ms. Keene is resting comfortably in bed. She states she is feeling better. She has been on a full 48 hours of antibiotics and into her third day. She has been starting some clear liquids and has been unable to keep that down. She still has some left-sided abdominal pain, though much improved. She denies any fevers or shaking chills. PHYSICAL EXAMINATION: VITAL SIGNS: Currently, her most recent temperature is 36.8, pulse is 74, and blood pressure 132/70. SKIN: Anicteric. HEENT: Eyes show anicteric sclerae. Mouth clear of lesions. NECK: Supple. No adenopathy. CHEST: Clear. HEART: Regular rate and rhythm. ABDOMEN: Soft with good bowel sounds. She has some mild tenderness to deep palpation in the left upper and left lower quadrant, but no rebound and no obvious masses. NEUROLOGIC: She is alert and oriented x3 and neurologically grossly intact. LABORATORY DATA: Shows a white blood cell count of 7.3, hemoglobin of 11, and platelet count of 236,000. Liver enzymes are normal. IMPRESSION: A 72-year-old woman with what seems like an infectious/ inflammatory process of either colonic or jejunal source ie: diverticulitis. More sinister pathology can not be ruled out. Doppler ultrasound did not reveal any worrisome vascular pathology. At this point, I recommend continuing on her antibiotics and slowly advance her diet as tolerates. I recommend a small bowel follow through x-ray as an outpatient to make sure we are not dealing with any small bowel pathology and I think she needs a followup colonoscopy in 4 to 6 weeks after this infection has resolved. IVETTE
[2017-08-17 14:50] VITALS: BP 160/92; PULSE 72; TEMP 36.9; O2SAT 96
[2017-08-17 16:00] VITALS: O2SAT 96
[2017-08-17 22:41] VITALS: BP 159/82; PULSE 67; TEMP 36.8; O2SAT 98
[2017-08-18] MEDS: METRONIDAZOLE / NSS 500 MG in PREMIXED NSS 100 ML IV SCH (06:04)
[2017-08-18 07:18] VITALS: BP 160/90; PULSE 77; TEMP 36.9; O2SAT 98
[2017-08-18] MEDS ORDERED: LOSARTAN/HCTZ 50-12.5 EA TAB PO SCH (09:00)
[2017-08-18] MEDS: HEPARIN SOD 5000 UNIT/0.5 ML CARP SQ SCH (09:00)
[2017-08-18] MEDS ORDERED: POTASSIUM CHLORIDE 20 MEQ TABCR PO SCH (09:00)
[2017-08-18] MEDS ORDERED: PANTOprazole SOD 40 MG TAB PO SCH (09:00)
--- NOTE | 2017-08-18 10:25 | Surgery Progress Note ---
Surgery Progress Note Date of Service Aug 18, 2017. Subjective Post OP Day: HD 5 + feeling well, + bowel movement, + flatus, + diet (doing well), No nausea, No vomiting Objective Vital Signs: Date Time Temp Pulse Resp B/P (MAP) Pulse Ox O2 Delivery O2 Flow Rate FiO2 08/18/17 07:18 36.9 77 18 160/90 (113) 98 Room Air 08/18/17 00:00 Room Air 08/17/17 22:41 36.8 67 18 159/82 (107) 98 Room Air 08/17/17 16:00 96 Room Air 08/17/17 14:50 36.9 72 18 160/92 (114) 96 Room Air General Appearance: WD/WN, no apparent distress Head: normocephalic, atraumatic Abdomen: normal bowel sounds, non tender, non distended, soft Extremities: non-tender, no pedal edema Assessment & Plan recurrent diverticulitis/SBO v. ileus -multiple BMs -feeling better -did well with diet -ambulate -po abx
[2017-08-18] MEDS: CIPROFLOXACIN / D5W 400 MG in PREMIXED IN D5W 200 ML IV SCH (10:32)
[2017-08-18] MEDS: ONDANSETRON INJ 2 MG/ML 2 ML VIAL IV PRN (10:42)
--- NOTE | 2017-08-18 13:10 | Discharge Instructions ---
Discharge Instructions Date of Service Aug 18, 2017. Admission Reason for Admission: Abdominal Pain, Diverticulitis Discharge Discharge Diagnosis / Problem: Diverticulitis Discharge Goals Goal(s): Improve function, Improve disease control Activity Recommendations Activity Limitations: resume your previous activity . Instructions / Follow-Up Instructions / Follow-Up You were admitted at [facility] for diverticulitis. Diverticulitis is a disorder that can cause belly pain, fever, and problems with bowel movements. The food we eat travels from the stomach through a long tube called the intestine. The last part of that tube is the colon. The colon sometimes has small pouches in its sumner. These pouches are called "diverticula." Many people who have these pouches have no symptoms. Diverticulitis happens when these pouches develop a small tear also known as a "microperforation," which then become infected and cause symptoms. What are the symptoms of diverticulitis? The most common symptom of diverticulitis is pain, which is usually in the lower part of the belly. Other symptoms can include: Fever, Constipation, Diarrhea, Nausea and vomiting You are on treatment with antibiotics and a full liquid diet for the next 48 hours. Please advance your diet as an outpatient as tolerated after this starting with soft foods and then regular. You were seen by gastroenterology and recommended to have a small bowel follow through XR in approximately 4 weeks and a colonoscopy in approximately 4-6 weeks after the infection has resolved. Should I change my diet if I have had diverticulitis? If you have had diverticulitis, it's a good idea to eat a lot of fiber. Good sources of fiber include fruits, oats, beans, peas, and green leafy vegetables. If you do not already eat fiber-rich foods, wait until after your symptoms get better to start. You do not need to avoid seeds, nuts, popcorn, or other similar foods. Please follow up with PCP within the next week for a recheck of your condition. Current Hospital Diet Patient's current hospital diet: Clear Liquid Diet Discharge Diet Recommended Diet: Full Liquid Diet (48 hours then advance as tolerated) Pending Studies Studies pending at discharge: no Medical Emergencies . Who to Call and When: Medical Emergencies: If at any time you feel your situation is an emergency, please call 911 immediately. . Non-Emergent Contact Non-Emergency issues call your: Primary Care Provider ( ) Call Non-Emergent contact if: you have a fever, your pain is worsening . . "Provider Documentation" section prepared by Sav Arias. . VTE Core Measure Inpt VTE Proph given/why not?: Unfractionated heparin SQ, SCD's
[2017-08-18] MEDS ORDERED: CIPR1TAB11 PO (13:17)
[2017-08-18] MEDS ORDERED: METR-163 PO (13:17)
[2017-08-18] MEDS ORDERED: ONDA4TAB54 PO (13:31)
--- NOTE | 2017-08-18 13:47 | Discharge Summary ---
Discharge Summary Date of Service Aug 18, 2017. (Sav Arias MD) Discharge Summary Admission Date: Aug 14, 2017 at 19:52 Discharge Date: Aug 18, 2017 Discharge Disposition: Home Principal Diagnosis: Diverticulitis Immunizations: Have You Had Influenza Vaccine: Unknown History of Tetanus Vaccine?: Unknown History of Pneumococcal: Unknown History of Hepatitis B Vaccine: Unknown Consultations: Gastroenterology General Surgery (Sav Arias MD) Medication Reconciliation New Medications: Ciprofloxacin Tab (Cipro) 250 Mg Tab 2 TAB PO BID for 6 Days, #24 TAB Metronidazole (Flagyl) 500 Mg Tab 500 MG PO TID for 6 Days, #18 TAB Ondansetron (Ondansetron HCl) 4 Mg Tab 1 TAB PO Q4H PRN for Nausea, #12 TAB Continued Medications: Hctz/Losartan (Hyzaar 25MG/100MG) Tab 1 TAB PO DAILY, #30 TAB Pantoprazole (Protonix) 20 Mg Tab 40 MG PO DAILY, #30 TAB Potassium Chloride (Klor-Con Ext Rel) 8 Meq Tabcr 8 MEQ PO DAILY, CAP Referrals At Discharge Follow up Referrals: Aquaculture Director Referral - Within a Month with Patrick Keane M.D. Discharge Exam Pain resolved this morning. Having multiple bowel movements which are loose and not watery. All other systems reviewed and otherwise negative. Physical Exam: General Appearance: WD/WN, no apparent distress Respiratory/Chest: chest non-tender, lungs clear, normal breath sounds, no respiratory distress, no accessory muscle use Cardiovascular: regular rate, rhythm, no murmur, normal peripheral pulses Abdomen / GI: normal bowel sounds, non tender, soft Extremities: no calf tenderness, normal capillary refill, no pedal edema Neurologic/Psychiatric: scrap sawyer II-XII nml as tested (no facial droop), no motor /sensory deficits (grossly), alert, oriented x 3 Skin: normal color, warm/dry, no rash (Sav Arias MD) no more abdominal pain tolerated clear liquid diet well Review of Systems: Constitutional: No fever Respiratory: No shortness of breath Cardiovascular: No chest pain Abdomen: + nausea, No pain Physical Exam: General Appearance: no apparent distress Respiratory/Chest: lungs clear, no respiratory distress Cardiovascular: regular rate, rhythm Abdomen / GI: normal bowel sounds, non tender, soft Neurologic/Psychiatric: alert, oriented x 3 Skin: warm/dry (Anna Garcia M.D.) Hospital Course Mrs Keene is a 72 yo F with hypertension and known diverticular disease (s/p bowel resection 16 y ago, without any complications since) who presents with severe diffuse abdominal pain. She sees a [facility] PCP in [place] and Dr Keane from [facility]. Her PCP and GI have been working up her anemia / fatigue. She was found to have heme positive stools on a visit to the ED 08/02, but EGD on 08/06 did not show a bleeding ulcer. She presents today with diffuse abdominal pain since Saturday, 2 days ago. She describes it as sharp, intermittent , diffuse but worse in the top of her abdomen. CT scan showed inflammatory process involving the left lateral midabdomen with jejunal bowel wall thickening and significant infiltration of the associated mesentery. She was treated for suspected diverticulitis given her abnormal anatomy and improved with bowel rest and IV ciprofloxacin and metronidazole. She is to be discharged on a further 6 day course of antibiotics and full liquid diet for an additional 48 hours then to increase her diet as tolerated. She will follow up with gastroenterology and her PCP. Gastroenterology recommends small bowel follow through XR and colonoscopy to be done in approximately 4-6 weeks as an outpatient. She should follow up with her PCP in the next week. Total Time Spent: Less than 30 minutes This includes examination of the patient, discharge planning, medication reconciliation, and communication with other providers. (Sav Arias MD) Resident Physician Supervision Note: I independently interviewed and examined the patient and verified the babb history and physical, reviewed labs and image studies, discussed the case with the resident Dr. Arias and agree with the findings and care plan. Total Time Spent: Greater than 30 minutes (35) (Anna Garcia M.D.) Discharge Instructions Please refer to the electronic Patient Visit Report (Discharge Instructions) for additional information. (Sav Arias MD) Follow-Up With Gastroenterology (appointment to be arranged) With your PCP within the next week. (Sav Arias MD) Additional Copies To Ira Bejarano M.D.; Patrick Keane M.D.
[2017-08-18 13:52] VITALS: BP 160/90; PULSE 77; TEMP 36.9; O2SAT 98
[2017-08-18] MEDS ORDERED: METRONIDAZOLE 500 MG TAB PO SCH (14:00)
[2017-08-18] MEDS ORDERED: CIPROFLOXACIN 500 MG TAB PO SCH (21:00)
== END 2017-08-18 14:15 | disposition home or self-care (01) | DRG 392 ==
LOC: C.EDB 12:52 → C.2T 19:52 → ENRESERV 20:03 → C.MS2W 08-15 17:24
PROVIDERS: ADMIT Hospitalist; ATTEND Family Medicine
DX: K57.12 Diverticulitis of small intestine without perforation or abscess without bleeding (principal); E87.6 Hypokalemia; I10 Essential (primary) hypertension; D50.9 Iron deficiency anemia, unspecified; Z23 Encounter for immunization; Z90.49 Acquired absence of other specified parts of digestive tract; Z79.899 Other long term (current) drug therapy

== ENCOUNTER → 2017-09-12 | Outpatient (CLI) | payer OTHER ==
[~2017-09-12] MED LIST changes: +GADAVIST IV PRN; +GLUCAGON FOR INJ 1 MG VIAL IM ONE; +GLUCAGON FOR INJ 1 MG VIAL ONE; +HYZ/10015 PO; +NURSING VERBAL MED ORDER ONE; +ONDA4TAB54 PO; +POTA8CAP6 PO
--- NOTE | 2017-09-12 14:34 | DIAGNOSTIC IMAGING REPORT ---
MR ENTEROGRAPHY OF THE ABDOMEN AND PELVIS WITHOUT AND WITH CONTRAST CLINICAL HISTORY: Diverticulitis. Abnormal CT scan. COMPARISON STUDY: CT scan dated 08/14/2017 FINDINGS: Imaging was performed before and after the administration of 6.5 cc of intravenous Gadavist. 1 mg of intramuscular glucagon was administered. The patient was unable to drink both bottles of oral Volumin. For this reason, there is suboptimal bowel distention . No hepatic or splenic masses are visualized. No pancreatic masses are visualized. No adrenal masses are visualized. There are no solid renal masses. There is dilatation of the right renal pelvis and a UPJ obstruction type pattern. There are no suspicious areas of marrow replacement. There are no transition zones indicate bowel obstruction. There is been interval resolution of the previously identified jejunal bowel wall thickening. No significant mesenteric edema is visualized. A portion of the jejunum remains lateral to the descending colon. These loops are mildly hyper peristaltic. This could reflect either postsurgical change or an internal hernia. There are no areas of pathologic bowel wall enhancement to indicate an enteritis. Unfortunately the patient was unable to drink contrast and bowel distention is limited. IMPRESSION: 1. Suboptimal bowel distention as the patient was unable to complete the oral prep 2. No evidence of bowel obstruction 3. Interval resolution of the previously identified mesenteric edema and jejunal bowel wall thickening 4. Proximal jejunal loops are located lateral to the descending colon. There is mild tethering of the mesentery. There is mild hyperperistalsis of these left mid abdominal jejunal loops. The bowel orientation could be secondary to either prior surgery, or an internal hernia. 5. Dilated right renal collecting system in a pattern suggestive a UPJ type obstruction Electronically signed by: Migel Angulo M.D. 09/12/2017 2:33 PM Dictated Date/Time: 09/12/2017 2:16 PM
== END | disposition home or self-care (01) ==
LOC: C.MRI 11:20
PROVIDERS: ATTEND Internal Medicine Gastroenterology
DX: K57.92 Diverticulitis of intestine, part unspecified, without perforation or abscess without bleeding (principal); R93.3 Abnormal findings on diagnostic imaging of other parts of digestive tract

== ENCOUNTER → 2017-10-10 | Outpatient (CLI) | payer OTHER ==
[~2017-10-10] MED LIST changes: -GADAVIST IV PRN; -GLUCAGON FOR INJ 1 MG VIAL IM ONE; -GLUCAGON FOR INJ 1 MG VIAL ONE; -NURSING VERBAL MED ORDER ONE
--- NOTE | 2017-10-10 11:53 | DIAGNOSTIC IMAGING REPORT ---
ABDOMEN LIMITED (US) CLINICAL HISTORY: 72 years-old Female presenting with SYMPTOMATIC CHOLELITHIASIS. TECHNIQUE: Real-time grayscale and limited color Doppler ultrasound imaging of the abdomen limited to the right upper quadrant was performed. COMPARISON: CT from 08/14/2017. FINDINGS: Pancreas: Visualized portions of the pancreatic head and body normal. Liver: Normal echogenicity and echotexture. The liver measures 15.1 cm in maximal sagittal dimension. No sonographic evidence of hepatic mass. Main portal vein patent with normal directional flow. Biliary: No intrahepatic biliary ductal dilatation. Common bile duct measures up to 4-7 mm in diameter. Gallbladder: No evidence of gallstones, gallbladder wall thickening, gallbladder distention, or pericholecystic fluid or inflammatory change. Right kidney: Mild pelviectasis. The proximal right ureter measures 8 mm in maximal AP dimension. Otherwise normal appearance of the right kidney with normal perfusion on color Doppler. Bladder: Left ureteral jet visualized; right ureteral jet nonvisualized. Ascites: None. IMPRESSION: 1. No evidence of cholelithiasis. 2. Mild right hydroureteronephrosis. This is not significantly changed from the prior CT, which suggested ureteropelvic junction obstruction. Electronically signed by: Trey Vera M.D. 10/10/2017 11:52 AM Dictated Date/Time: 10/10/2017 11:48 AM
== END | disposition home or self-care (01) ==
LOC: C.ULTRBC 11:02
PROVIDERS: ATTEND Family Medicine
DX: K80.20 Calculus of gallbladder without cholecystitis without obstruction (principal)

== ENCOUNTER → 2017-10-31 | Outpatient (CLI) | payer OTHER ==
[~2017-10-31] MED LIST changes: +FURO40TA3 PO; +LORA-741 PO; +LOSA50TA6 PO; +POTA10CA28 PO
[2017-10-31 18:00] LABS: BASO % 1.1 %; BASO ABS # 0.09 K/uL (0-0.2); COMPLETE YES; EOS % 3.1 %; HEMATOCRIT 38.9 % (37-47); IG% 0.1 %; LYMPH % 19.2 %; LYMPH ABS # 1.55 K/uL (1.2-3.4); MEAN CELL VOLUME 76.7 fL (80-100); MEAN CORPUSCULAR HEMOGLOBIN 23.9 pg (25-34); MEAN CORPUSCULAR HGB CONC 31.1 g/dl (32-36); MEAN PLATELET VOLUME 11.3 fL (7.4-10.4); MONO % 6.4 %; NEUT % 70.1 %; PLATELET COUNT 282 K/uL (130-400); RED BLOOD COUNT 5.07 M/uL (4.2-5.4); WHITE BLOOD COUNT 8.07 K/uL (4.8-10.8)
[2017-10-31 18:04] LABS: BLOOD UREA NITROGEN 16 mg/dl (7-18); BUN/CREATININE RATIO 18.1 (10-20); CALCIUM 9.3 mg/dl (8.5-10.1); CARBON DIOXIDE 28 mmol/L (21-32); CHLORIDE 106 mmol/L (98-107); CREATININE 0.89 mg/dl (0.60-1.20); GLUCOSE 149 mg/dl (70-99); POTASSIUM 3.5 mmol/L (3.5-5.1); SODIUM 139 mmol/L (136-145)
== END | disposition home or self-care (01) ==
LOC: C.LABMFLN 12:04
PROVIDERS: ATTEND Surgery
DX: Z01.812 Encounter for preprocedural laboratory examination (principal); K80.20 Calculus of gallbladder without cholecystitis without obstruction

== ENCOUNTER 2017-11-07 07:45 | Day surgery (SDC) | payer OTHER ==
[2017-11-04 08:17] VITALS: BMI 25.0
[~2017-11-07] VITALS: Ht 157.5 cm; Wt 64.0 kg
[~2017-11-07 07:45] MED LIST changes: +ACETAMINOPHEN 1000 MG/100 ML IV IV ONE; +CEFAZOLIN 2000MG IV PUSH 10 ML IV SCH; -HYZ/10015 PO; +LACTATED RINGER'S 1000ML 1,000 ML IV SCH; -ONDA4TAB54 PO; -POTA8CAP6 PO; -PRT/20 PO
[2017-11-07] MEDS ORDERED: FENTANYL CITRATE INJ 50 MCG/1 ML 2 ML VIAL ONE ×3 (08:58→11:18)
[2017-11-07] MEDS ORDERED: LIDOCAINE HCL 2% 2 ML VIAL (20MG/ML) ONE (09:00)
[2017-11-07] MEDS ORDERED: PROPOFOL IV EMULSION 10 MG/ML 20 ML VIAL IV ONE (09:00)
[2017-11-07 09:01] VITALS: BP 184/88; PULSE 60; TEMP 36.5; O2SAT 95; Ht 157.5 cm; Wt 64.0 kg
[2017-11-07] MEDS ORDERED: ONDANSETRON INJ 2 MG/ML 2 ML VIAL ONE ×2 (09:01→10:28)
[2017-11-07] MEDS ORDERED: DEXAMETHASONE SOD INJ 4 MG/ML VIAL ONE (09:01)
--- NOTE | 2017-11-07 09:45 | History & Physical Bridge Note ---
H&P Re-Evaluation Bridge Note: I have examined the patient, reviewed the History & Physical and in the interval since the performance of the History & Physical I have noted the following changes of clinical significance: No changes noted
[2017-11-07] MEDS ORDERED: BUPIVACAINE/EPINEPHRINE 0.5% MPF 1:200,000 30 ML VIAL ONE (09:55)
[2017-11-07] MEDS ORDERED: PROMETHAZINE HCL INJ 6.25 MG in SODIUM CHLORIDE 0.9% 50ML 50 ML IV PRN (10:15)
[2017-11-07] MEDS ORDERED: ONDANSETRON INJ 2 MG/ML 2 ML VIAL IV PRN ×2 (10:15→11:45)
[2017-11-07] MEDS ORDERED: ATROPINE SULFATE 0.1 MG/ML 5ML SYR IV PRN (10:15)
[2017-11-07] MEDS ORDERED: EpHEDrine SULFATE INJ 50 MG/ML AMP IV PRN (10:15)
[2017-11-07] MEDS ORDERED: NEOSTIGMINE METHYLSULFATE 5 MG/5 ML SYR ONE (10:54)
[2017-11-07] MEDS ORDERED: GLYCOPYRROLATE INJ 0.2 MG/ML VIAL ONE (10:54)
[2017-11-07] MEDS ORDERED: EpHEDrine SULFATE 50MG/5ML SYR ONE (10:54)
[2017-11-07] MEDS ORDERED: ACET-749 PO (11:35)
[2017-11-07] MEDS ORDERED: SODIUM CHLORIDE 0.9% 1000ML 1,000 ML IV SCH (11:42)
--- NOTE | 2017-11-07 11:42 | Discharge Instructions ---
Discharge Instructions Date of Service Nov 07, 2017. Visit Reason for Visit: Symptomatic Cholelithiasis Discharge Discharge Diagnosis / Problem: Symptomatic Cholelithiasis Discharge Goals Goal(s): Decrease discomfort, Improve function Activity Recommendations Activity Limitations: as noted below Lifting Limitations: no more than 10 pounds, until after follow-up appointment Exercise/Sports Limitations: until after follow-up appointment Shower/Bathe: tomorrow Driving or Machine Use: resume 3 days after discharge (Do not drive while using narcotic pain medication) Anesthesia . Post Anesthesia Instructions: If you have had General Anesthesia or IV Sedation: * Do not drive today. * Resume driving when surgeon permits. * Do not make important decisions or sign legal documents today. * Call surgeon for: 1. Temperature elevations greater than 101 degrees F. 2. Uncontrollable pain. 3. Excessive bleeding. 4. Persistent nausea and vomiting. 5. Medication intolerance (nausea, vomiting or rash). * For nausea and vomiting use only clear liquids such as: tea, soda, bouillon until nausea subsides, then gradually increase diet as tolerated. * If you have any concerns or questions, call your surgeon's office. If physician is unavailable and it is an emergency, call 911 or go to the nearest emergency room. . Instructions / Follow-Up Instructions / Follow-Up You have surgical glue covering your incisions. Please allow this to fall off on its own. You have been prescribed Tylenol #3 w/ codeine to take as needed for pain relief. You may alternate this with Ibuprofen for better pain relief if needed. Please follow-up with Dr. Johnson in 2 weeks. Please call our office at to schedule an appointment if you have not done so already. Please contact our office with any questions or concerns. [facility]. [address] [place] [address]. Diet Recommendations Recommended Home Diet: no limitations, resume previous diet Procedures Procedures Performed: Colonoscopy, extensive entrolysis, Laparoscopic Cholecystectomy Pending Studies Studies pending at discharge: yes List of pending studies: Pathology Medical Emergencies . Who to Call and When: Medical Emergencies: If at any time you feel your situation is an emergency, please call 911 immediately. . Non-Emergent Contact Non-Emergency issues call your: Primary Care Provider, Surgeon Call Non-Emergent contact if: you have a fever, temperature is above 101.5, your pain is not controlled, your pain is worsening, wound has increased drainage, wound has increased redness, you have any medication questions . . "Provider Documentation" section prepared by Harinder Romo. . [place] Drug Monitoring Program Search Results: patient reviewed within database, no issues identified
[2017-11-07] MEDS ORDERED: IBUPROFEN 600 MG TAB PO PRN (11:45)
[2017-11-07] MEDS ORDERED: ACETAMINOPHEN/CODEINE 300/30MG TAB PO PRN (11:45)
[2017-11-07] MEDS: FENTANYL CITRATE INJ 50 MCG/1 ML 2 ML VIAL IV PRN ×2 (11:46→11:52)
--- NOTE | 2017-11-07 12:21 | Anesthesiology Progress Note ---
Anesthesia Post Op Note Date & Time Nov 07, 2017 at 12:21 Vital Signs Pain Intensity: 3 Vital Signs Past 12 Hours Date Time Temp Pulse Resp B/P (MAP) Pulse Ox O2 Delivery O2 Flow Rate FiO2 11/07/17 12:10 76 17 145/64 96 Nasal Cannula 2 11/07/17 12:00 63 15 135/69 94 Nasal Cannula 2 11/07/17 11:50 64 16 131/64 98 Oxymask 10 11/07/17 11:40 71 16 143/71 99 Oxymask 10 11/07/17 11:32 36.3 78 16 154/81 98 Oxymask 10 11/07/17 09:01 36.5 60 16 184/88 (120) 95 Room Air Notes Mental Status: alert / awake / arousable, participated in evaluation Pt Amnestic to Procedure: Yes Nausea / Vomiting: adequately controlled Pain: adequately controlled Airway Patency, RR, SpO2: stable & adequate BP & HR: stable & adequate Hydration State: stable & adequate Anesthetic Complications: no major complications apparent
[2017-11-07 12:40] VITALS: BP 141/63; PULSE 64; TEMP 36.4; O2SAT 96
--- NOTE | 2017-11-07 12:54 | [facility] Operative Report ---
Operative Report Operative Date Nov 07, 2017. Pre-Operative Diagnosis Symptomatic Cholelithiasis Post-Operative Diagnosis Symptomatic Cholelithiasis;adhesions Procedure(s) Performed laparoscopy, extensive entrolysis, Laparoscopic Cholecystectomy Surgeon Dr. Krunal Johnson Block Feeder Surgeon(s) Harinder Romo PA-C Estimated Blood Loss 10ml Findings diffuse adhesions, otherwise normal anatomy Specimens A.) Gallbladder and contents Anesthesia get Complication(s) None Disposition Recovery Room / PACU Description of Procedure After informed consent was obtained the patient was taken to the operating room and placed in a supine position. After successful intubation the abdomen was sterilely prepped and draped in usual fashion. A supraumbilical incision was made with an 11 blade scalpel and carried down through the soft tissue using electrocautery. The anterior rectus fascia was opened using electrocautery and 2 #0 Vicryl stay sutures were placed. Peritoneum was entered using blunt finger penetration and a finger sweep was performed. A 12 mm Rubin trocar was placed and the abdomen was insufflated 18 mmHg. We inserted the laparoscope and there were diffuse adhesions. I was actually under the colon as well as the stomach with both plastered to the anterior abdominal wall. I was unable to safely find a window. I therefore aborted this approach and reperformed the same technique in the upper midline. I placed a new incision, opened the fascia and placed stay sutures. Peritoneum was elevated and opened with a Metzenbaum scissor and a new Rubin trocar was placed. We reinsufflated the abdomen and then when I inserted the scope I was able to see clearly in the right upper quadrant. There were a lot of adhesions in the upper and lower abdomen. I was able to place a 5 mm right upper quadrant trocar and using the 5 mm camera and Harmonic scalpel was used to able to tediously take down the adhesions starting in the midline and working laterally both sides. I was able take the stomach as well as small bowel and colon down safely with the Harmonic scalpel. However when I got down the lower abdomen/pelvis the colon was really plastered to the pelvic wall and I felt that risk-benefit did not warrant continuing this process. All of her pain complex was in the upper abdomen so I decided to allow the remaining adhesions to stay in the pelvis. I did not see any evidence of internal hernia or acute inflammation although again visualization was somewhat difficult and exam limited because of her adhesive disease. I was able to place an additional right upper quadrant 5 mm trocar. The patient was placed in reverse Trendelenburg position and airplaned to the left. The gallbladder was grasped and elevated superiorly and laterally. [place] dissector was used to take down adhesions around the neck of the gallbladder. The cystic duct was identified skeletonized clipped twice proximally once distally and transected. In similar fashion the cystic artery was identified skeletonized clipped and divided. The gallbladder was removed from the gallbladder fossa intact and placed into an Endo Catch bag. Any small bleeding points on the fossa were controlled using electrocautery and a thorough irrigation was performed. At the end of the procedure there was adequate hemostasis and no evidence of any bile leaks. I did look around the abdomen a final time. I saw no evidence of any injury to abdominal viscus. I saw no other gross abnormalities. The trochars were all removed as well as the gallbladder. The fascia of both camera sites were closed using 0 Vicryl figure 8 fashion. All wounds were irrigated and closed using 4-0 Monocryl. Marcaine was injected around them for postoperative analgesia and skin glue used as a dressing. Patient was awaken x-rayed and transferred recovery in stable condition I attest to the content of the Intraoperative Record and any orders documented therein. Any exceptions are noted below.
[2017-11-07 13:20] VITALS: BP 136/69; PULSE 66; O2SAT 99
[2017-11-07 13:40] VITALS: BP 161/79; PULSE 71; TEMP 36.5; O2SAT 95
== END 2017-11-07 14:20 | disposition home or self-care (01) ==
LOC: C.ACU 07:45
PROVIDERS: ATTEND Surgery
DX: K80.12 Calculus of gallbladder with acute and chronic cholecystitis without obstruction (principal); K66.0 Peritoneal adhesions (postprocedural) (postinfection); K57.32 Diverticulitis of large intestine without perforation or abscess without bleeding; K21.9 Gastro-esophageal reflux disease without esophagitis; D64.9 Anemia, unspecified; F41.9 Anxiety disorder, unspecified; I10 Essential (primary) hypertension; E78.5 Hyperlipidemia, unspecified; G89.29 Other chronic pain; E87.6 Hypokalemia; M54.5 Low back pain; M16.11 Unilateral primary osteoarthritis, right hip; R73.03 Prediabetes; N13.5 Crossing vessel and stricture of ureter without hydronephrosis; E55.9 Vitamin D deficiency, unspecified; Z79.899 Other long term (current) drug therapy

== ENCOUNTER → 2018-01-23 | Outpatient (CLI) | payer OTHER ==
[~2018-01-23] MED LIST changes: -ACETAMINOPHEN 1000 MG/100 ML IV IV ONE; -CEFAZOLIN 2000MG IV PUSH 10 ML IV SCH; +IBUP-1050 PO; -LACTATED RINGER'S 1000ML 1,000 ML IV SCH
== END | disposition home or self-care (01) ==
LOC: C.LABMFLN 15:38
PROVIDERS: ATTEND Family Medicine
DX: R07.9 Chest pain, unspecified (principal)

== ENCOUNTER → 2018-02-06 | Outpatient (CLI) | payer OTHER ==
[2018-02-06 17:54] LABS: BASO % 0.7 %; BASO ABS # 0.05 K/uL (0-0.2); EOS % 2.8 %; HEMOGLOBIN 12.6 g/dL (12.0-16.0); IG# 0.01 K/uL (0.00-0.02); LYMPH % 19.2 %; LYMPH ABS # 1.35 K/uL (1.2-3.4); MEAN CORPUSCULAR HEMOGLOBIN 24.6 pg (25-34); MEAN CORPUSCULAR HGB CONC 31.5 g/dl (32-36); MONO % 6.3 %; MONO ABS # 0.44 K/uL (0.11-0.59); NEUT % 70.9 %; NEUT ABS # 4.98 K/uL (1.4-6.5); PLATELET COUNT 215 K/uL (130-400); RED CELL DISTRIBUTION WIDTH CV 15.5 % (11.5-14.5); RED CELL DISTRIBUTION WIDTH SD 44.4 fL (36.4-46.3); WHITE BLOOD COUNT 7.03 K/uL (4.8-10.8)
[2018-02-06 18:04] LABS: PTT PATIENT 24.5 SECONDS (21.0-31.0)
[2018-02-06 18:23] LABS: BLOOD UREA NITROGEN 12 mg/dl (7-18); CALCIUM 9.1 mg/dl (8.5-10.1); CARBON DIOXIDE 27 mmol/L (21-32); CREATININE 0.88 mg/dl (0.60-1.20); GLUCOSE 128 mg/dl (70-99); POTASSIUM 3.9 mmol/L (3.5-5.1); SODIUM 139 mmol/L (136-145)
== END | disposition home or self-care (01) ==
LOC: C.LABMFLN 11:55
PROVIDERS: ATTEND Orthopaedic Surgery Sports Medicine
DX: Z01.810 Encounter for preprocedural cardiovascular examination (principal); Z01.812 Encounter for preprocedural laboratory examination

== ENCOUNTER 2018-03-10 10:40 | Inpatient (IN) | payer OTHER ==
[2018-01-03 10:11] VITALS: BMI 24.0
--- NOTE | 2018-01-03 10:42 | PAT Medication Instructions ---
Service Date Jan 03, 2018. Current Home Medication List Furosemide (Lasix), 20 MG PO QAM PRN for EDEMA Ibuprofen (Advil), 400-600 MG PO Q6H PRN for Pain Lorazepam (Ativan), 1 MG PO HS Losartan Potassium (Cozaar), 50 MG PO QPM Potassium Chloride (Micro-K Ext Rel), 10 MEQ PO QPM Medication Instructions For Your Scheduled Surgery -Contact your surgeon for instructions for: Ibuprofen (Advil), 400-600 MG PO Q6H PRN for Pain - Hold the following medications the morning of surgery: Furosemide (Lasix), 20 MG PO QAM PRN for EDEMA - Take the following medications as scheduled the night before surgery: Lorazepam (Ativan), 1 MG PO HS Losartan Potassium (Cozaar), 50 MG PO QPM Potassium Chloride (Micro-K Ext Rel), 10 MEQ PO QPM Furosemide (Lasix), 20 MG PO QAM PRN for EDEMA If you have any questions please call us at [phone] or [phone] or [phone]
[2018-01-03 12:04] LABS: BASO % 0.4 %; BASO ABS # 0.03 K/uL (0-0.2); EOS % 2.5 %; EOS ABS # 0.18 K/uL (0-0.5); HEMOGLOBIN 12.7 g/dL (12.0-16.0); IG# 0.02 K/uL (0.00-0.02); LYMPH % 21.4 %; LYMPH ABS # 1.54 K/uL (1.2-3.4); MEAN CELL VOLUME 76.8 fL (80-100); MEAN CORPUSCULAR HGB CONC 32.6 g/dl (32-36); MEAN PLATELET VOLUME 11.2 fL (7.4-10.4); MONO % 6.4 %; MONO ABS # 0.46 K/uL (0.11-0.59); NEUT ABS # 4.98 K/uL (1.4-6.5); PLATELET COUNT 227 K/uL (130-400); RED CELL DISTRIBUTION WIDTH CV 15.7 % (11.5-14.5); RED CELL DISTRIBUTION WIDTH SD 43.9 fL (36.4-46.3); WHITE BLOOD COUNT 7.21 K/uL (4.8-10.8)
[2018-01-03 12:19] LABS: ALBUMIN 3.6 gm/dl (3.4-5.0); CALCIUM 9.3 mg/dl (8.5-10.1); CREATININE 0.87 mg/dl (0.60-1.20); POTASSIUM 3.8 mmol/L (3.5-5.1)
[2018-01-03 12:20] LABS: PTT PATIENT 24.7 SECONDS (21.0-31.0)
[2018-02-14 13:18] VITALS: BMI 24.0
--- NOTE | 2018-03-09 17:57 | HISTORY & PHYSICAL EXAMINATION ---
DATE OF ADMISSION: 03/10/2018 CHIEF COMPLAINT: Chronic right hip pain. HISTORY OF PRESENT ILLNESS: This is a 72-year-old female patient of Dr. Mitchell'ambrosio complaining of chronic right hip pain, longstanding, now progressively getting worse. The patient has failed conservative treatment including intraarticular injections, physical therapy, and [id number] medications. She has been diagnosed with end-stage osteoarthritis per clinical and radiographic exams. The patient wished to proceed with the right total hip arthroplasty. PAST MEDICAL HISTORY: Hypertension, spine problems, neck problems, upper back problems, sciatica, hiatal hernia. SOCIAL HISTORY: Nonsmoker, nondrinker. PAST SURGICAL HISTORY: Will be provided on admission. FAMILY HISTORY: Noncontributory. REVIEW OF SYSTEMS: The patient complains of chronic right hip pain. Otherwise, denies any shortness of breath, chest pain, nausea, vomiting or any other joint complaints. MEDICATIONS: Include losartan 50 mg daily, lorazepam 0.5 mg as needed at night, potassium 10 mEq as needed, and furosemide 20 mg daily as needed. ALLERGIES: CODEINE WHICH CAUSES FACE SWELLING. PHYSICAL EXAMINATION: GENERAL: Well-developed, well-nourished 72-year-old female, in no acute distress. She is alert and oriented x3 and pleasant. HEENT: Normocephalic, atraumatic. Extraocular motions are intact. Pupils are equal, reactive to light. HEART: Regular rate and rhythm. No murmurs appreciated. LUNGS: Clear. ABDOMEN: Soft and nontender. Bowel sounds present. EXTREMITIES: Right hip reveals pain with log rolling and passive internal and external rotation at 90/90 degrees of motion. She has no significant flexion contracture. She has 4/5 strength with pain in her right lower extremity. NEUROLOGIC: Neurovascularly, she is intact in her right lower extremity. DIAGNOSES: Right hip end-stage osteoarthritis, hypertension, spine problems, neck problems, upper back problems, sciatica, hiatal hernia. PLAN: The patient was advised of her diagnosis. Indications, risks, benefits, postop course have all been reviewed. The patient wished to proceed with a right total hip arthroplasty. Necessary consent forms, preoperative testing and clearances will be obtained.
[~2018-03-10] VITALS: Ht 160 cm; Wt 62.5 kg
[2018-03-10] VITALS (7 sets, daily range): BP systolic 134–173; BP diastolic 64–101; PULSE 68–82; TEMP 36.4–36.7; O2SAT 96–100; Ht 160 cm; Wt 62.5 kg
[2018-03-10] MEDS: TRANEXAMIC ACID INJ 1,000 MG x 2 Bags IV SCH ×4 (06:30→12:43)
[~2018-03-10 10:40] MED LIST changes: +ACETAMINOPHEN 500 MG TAB PO SCH; +BUPIVACAINE 0.5 % 5 MG/1 ML PF 10ML VIAL ONE; +CEFAZOLIN 2000MG IV PUSH 15 ML IV SCH; +CeleBREX 200 MG CAP PO SCH; +DEXAMETHASONE 4 MG TAB PO SCH; +FAMOTIDINE 20 MG TAB PO SCH; +GABAPENTIN 300 MG CAP PO SCH; +LACTATED RINGER'S 1000ML 1,000 ML IV SCH; +LACTATED RINGER'S 1000ML 500 ML IV SCH; +METOCLOPRAMIDE HCL 10 MG TAB PO SCH; +ROPIVACAINE 5MG/ML 30 ML 150 MG, BUPIVACAINE 0.5% MPF INJ 30 ML, EpINEphrine HCL INJ 0.... INFIL SCH
[2018-03-10] MEDS ORDERED: DEXT30TA7 PO (11:23)
[2018-03-10] MEDS ORDERED: ORTHO JOINT ANESTHETIC ONE (11:55)
[2018-03-10] MEDS ORDERED: BACITRACIN 50000 UNIT VIAL ONE (11:55)
[2018-03-10] MEDS ORDERED: POVIDONE-IODINE OP SOLN 30 ML BTL ONE (11:55)
[2018-03-10] MEDS ORDERED: PROPOFOL IV EMULSION 10 MG/ML 20 ML VIAL IV ONE (12:01)
[2018-03-10] MEDS ORDERED: MIDAZOLAM HCL 1 MG/ML 2ML VIAL ONE ×3 (12:01→13:13)
[2018-03-10] MEDS ORDERED: FENTANYL CITRATE INJ 50 MCG/1 ML 2 ML VIAL ONE ×2 (12:01→15:12)
[2018-03-10] MEDS ORDERED: LIDOCAINE HCL 2% 2 ML VIAL (20MG/ML) ONE (12:01)
[2018-03-10] MEDS ORDERED: PROMETHAZINE HCL INJ 12.5 MG in SODIUM CHLORIDE 0.9% 50ML 50 ML IV PRN (12:45)
[2018-03-10] MEDS ORDERED: HYDROmorphone INJ 0.5 MG/0.5 ML SYR IV PRN (12:45)
[2018-03-10] MEDS ORDERED: ATROPINE SULFATE 0.1 MG/ML 5ML SYR IV PRN (12:45)
[2018-03-10] MEDS ORDERED: PHENYLEPHRINE 100MCG/ML 5ML SYR IV PRN (12:45)
[2018-03-10] MEDS ORDERED: ONDANSETRON INJ 2 MG/ML 2 ML VIAL IV PRN ×2 (12:45→15:30)
[2018-03-10] MEDS ORDERED: FENTANYL CITRATE INJ 50 MCG/1 ML 2 ML VIAL IV PRN (12:45)
[2018-03-10] MEDS ORDERED: EpHEDrine SULFATE INJ 50 MG/ML AMP IV PRN (12:45)
[2018-03-10] MEDS ORDERED: ONDANSETRON INJ 2 MG/ML 2 ML VIAL ONE (13:18)
[2018-03-10] MEDS ORDERED: PHENYLEPHRINE 100MCG/ML 5ML SYR ONE (13:54)
--- NOTE | 2018-03-10 15:19 | [facility] Post Operative Brief Note ---
Immediate Operative Summary Operative Date Mar 10, 2018. Pre-Operative Diagnosis Right hip end-stage osteoarthritis Post-Operative Diagnosis Right hip end-stage osteoarthritis Procedure(s) Performed Right Total Hip Arthroplasty, Uncemented Surgeon Dr. Mitchell Pbx Inspector Surgeon(s) Glenn Ramirez PA-C Estimated Blood Loss 100mL Findings Consistent with Post-Op Diagnosis Specimens A. Right Femoral Head Drains 2 hemovac Anesthesia Type Spinal MAC Complication(s) none Disposition Disposition: Recovery Room / PACU
[2018-03-10] MEDS ORDERED: ZOLPIDEM TARTRATE 5 MG TAB PO PRN (15:30)
[2018-03-10] MEDS ORDERED: SOD PHOSPHATE/SOD BIPHOSPHATE ENEMA 132 ML BTL PR PRN (15:30)
[2018-03-10] MEDS ORDERED: METOCLOPRAMIDE HCL INJ 5 MG/ML 2 ML VIAL IV PRN (15:30)
[2018-03-10] MEDS ORDERED: FUROSEMIDE 20 MG TAB PO PRN (15:30)
[2018-03-10] MEDS ORDERED: MoRPHine SULFATE 2 MG/ML CARP IV PRN (15:30)
[2018-03-10] MEDS ORDERED: BISACODYL 10 MG SUPP PR PRN (15:30)
[2018-03-10] MEDS ORDERED: MAGNESIUM HYDROXIDE SUSP 30 ML UDC PO PRN (15:30)
[2018-03-10] MEDS ORDERED: GUAIFENESIN 600 MG TABCR PO PRN (15:30)
[2018-03-10] MEDS ORDERED: MoRPHine SULFATE 4 MG/ML 1 ML CARP\\VIAL IV PRN (16:00)
--- NOTE | 2018-03-10 16:58 | Anesthesiology Progress Note ---
Anesthesia Post Op Note Date & Time Mar 10, 2018 at 16:58 Vital Signs Pain Intensity: 0 Vital Signs Past 12 Hours Date Time Temp Pulse Resp B/P (MAP) Pulse Ox O2 Delivery O2 Flow Rate FiO2 03/10/18 16:45 36.5 73 16 134/72 (92) 99 Nasal Cannula 2.0 03/10/18 16:00 72 23 141/56 98 Nasal Cannula 2 03/10/18 15:45 36.6 72 20 138/71 99 Nasal Cannula 2 03/10/18 15:35 68 15 124/63 99 Nasal Cannula 2 03/10/18 15:28 37.0 80 12 136/67 100 Oxymask 10 03/10/18 11:26 36.4 82 20 173/101 99 Room Air Notes Mental Status: alert / awake / arousable, participated in evaluation Pt Amnestic to Procedure: Yes Nausea / Vomiting: adequately controlled Pain: adequately controlled Airway Patency, RR, SpO2: stable & adequate BP & HR: stable & adequate Hydration State: stable & adequate Neuraxial Anesthesia: was administered, sensory block is resolving Anesthetic Complications: no major complications apparent
--- NOTE | 2018-03-10 17:08 | [facility] Operative Report ---
Operative Report Operative Date Mar 10, 2018. Pre-Operative Diagnosis Right hip end-stage osteoarthritis Post-Operative Diagnosis Same Procedure(s) Performed Right total hip arthroplasty Surgeon Dr. Mitchell Channel Worker Surgeon(s) Glenn Ramirez PA-C Estimated Blood Loss 100mL Findings Osteoarthritis right hip with pincer type impingement with large rimming osteophytes around the acetabulum and femoral neck osteophytes. Specimens A. Right Femoral Head Drains 2 hemovac Anesthesia Spinal sedation and orthomix Complication(s) None Disposition Recovery Room / PACU Indications 72-year-old female with osteoarthritis right hip failed conservative management chronic pain limited mobility Description of Procedure Patient taken to the operating room and anesthetized under spinal anesthesia. Patient was placed supine on the operating table. Exam of the involved extremity demonstrated right hip had flexion only to 90 and no internal rotation and her abduction was limited to about 30.The patient was placed on a sacral pad and the involved leg was placed on a foot bump to flex knee 90 and hip 60. A Tejada-type approach was performed to the hip. A longitudinal lateral incision was made over the hip. The skin was incised sharply. The fat was divided down to the fascia. Subcutaneous bleeders are cauterized. Trochanteric bursa was resected. She did have some chronic thickened trochanteric bursa. A split was made in the gluteus medius muscle between the anterior 40% and posterior 60%. The minimus was divided longitudinally reflected off the underlying capsule. The capsule was incised down to the hip joint. Intra-articular findings demonstrated[] . An incision was made through the gluteus medius leaving a cuff of tendon for repair on the greater trochanter. The vastus lateralis was split longitudinally for about 3 cm. A muscular capsular flap was elevated off the hip. The hip was dislocated with use of bone hook and with flexion and external rotation of the hip. Because the hip was locked in with rimming osteophytes we had to remove some of the osteophytes around the acetabulum in order to dislocate the hip. the femoral neck cut was made approximately 15 mm proximal to the lesser trochanter in neutral anteversion. Head and neck fragment were removed. The femoral head demonstrated some medial sided wear and osteophytes around the neck and edge of the articular surface. A sharp Hohmann superior retractor was impacted into the ilium, a blunt [place] retractor was placed anteriorly a double angled inferior retractor was placed on the ischium. The acetabulum demonstrated osteophytes surrounding the entire acetabulum with arthritic wear some medial wear but no dmitry protrusio. The acetabular labrum was resected all osteophytes were resected.The soft tissue in the acetabular fossa was resected. An anterior capsular release was performed. Some the capsule was resected for exposure. The first reamer size 44 was used to medialize reaming to the inner table and then sequential reamers for the acetabulum were used in 2 mm increments up to a size 50. I used the [employer] total hip arthroplasty system using a PSL type cup. Trial reduction demonstrated a 50 millimeter cup was the appropriate size and fit. The placement of the final implant was performed after irrigating the acetabulum with antibiotic solution with pulsatile lavage. The position of the cup was approximately 15 anteversion 45 abduction. Good fixation was performed. 2 screws were placed in the posterior superior quadrant for further fixation through the cup. The acetabular liner was impacted into position. The Trident X3 10 36 E acetabular liner was used. Retractors removed and attention was taken to the femur. The femur was exposed with flexion external rotation. Canal reamer was used followed by sequential broaches up to a size 3. This had a good fit and fill. Trial reduction was performed with a 132 neck angle based on preoperative templating. A -5 neck length gave near equal leg lengths being slightly long by a few millimeters only and stable range of motion through full flexion flexion adduction and internal rotation and extension and external rotation. The trials removed and after irrigation again and the final implant was impacted which was the Accolade 2 size 3 with 132 neck angle. The [employer] ceramic head size 36 was used. After final implants replaced the reduction was noted to be stable. 2 drains were placed deep. These were brought out laterally and connected to Hemovac. The minimus was closed with interrupted [id number] #1 Vicryl sutures. The medius was closed with transosseous #5 FiberWire sutures using Mohan Fly suture technique. Lateral row soft tissue repair was performed with figure of 8 #2 FiberWire sutures. The medius split was closed with interrupted [id number] #1 Vicryl sutures. The vastus lateralis was closed with interrupted figure of eight #1Vicryl sutures. The fascia shonda was closed with interrupted figure of eight #1 Vicryl sutures. The fat was closed with [id number] #2 Vicryl sutures. Skin was closed with ivana and sterile dressings were applied. The patient tolerated procedure well. Glenn WOODARD my physician assistant editor assisted me in the procedure with patient positioning And draping soft tissue retraction instrument management suture management and assisted in the outer layer closure and will participate in the postoperative care the patient thank you. I attest to the content of the Intraoperative Record and any orders documented therein. Any exceptions are noted below.
--- NOTE | 2018-03-10 17:25 | DIAGNOSTIC IMAGING REPORT ---
R PELVIS/UNILATERAL HIP 1 VIEW HISTORY: 72 years-old Female IN PACU - A/P PELVIS and LATERAL HIP INCLUDING ALL OF IMPLANT right hip arthroplasty. Degenerative joint disease. COMPARISON: Acute abdominal series radiographs 08/14/2017 TECHNIQUE: Portable AP view of the pelvis with frog-leg view of the right hip FINDINGS: Moderate degenerative changes about the left hip. Right hip arthroplasty in satisfactory alignment without periprosthetic fracture or retained foreign body identified. The imaged pelvis appears intact. Expected postsurgical soft tissue swelling and deep tissue air about the right hip with skin ivana and surgical drain in place. Probable phleboliths about the right hemipelvis. IMPRESSION: Right hip arthroplasty with satisfactory alignment. The above report was generated using voice recognition software. It may contain grammatical, syntax or spelling errors. Electronically signed by: Kirby Farrell M.D. 03/10/2018 5:24 PM Dictated Date/Time: 03/10/2018 5:22 PM
[2018-03-10] MEDS: TRAMADOL HCL 50 MG TAB PO PRN ×2 (17:59→23:35)
--- NOTE | 2018-03-10 18:00 | Medical Consult ---
Consultation Date of Consultation: Mar 10, 2018. Attending Physician: Umer Mitchell M.D. Reason for Consultation: medical management History of Present Illness 72 y/o F who was admitted on 03/10 s/p R hip replacement with Dr. Mitchell. Pt is doing well post-op, but she is starting to have some pain at this point. Tolerating PO without issue. Pt denies fever, SOB, chest pain, abd pain, n/v/c/ d, LE swelling. Past Medical/Surgical History HTN Sciatica Hiatal hernia Social History Smoking Status: Never Smoker Alcohol Use: none Drug Use: none Marital Status: Housing Status: lives with significant other Occupation Status: employed Allergies Coded Allergies: Codeine (Verified Allergy, Unknown, SWELLING OF FACE &BODY, 03/10/18) Iodinated Diagnostic Agents (Verified Allergy, Unknown, PT STATES SHE HAD A "PARALYZED REACTION AND COULD NOT SPEAK", 03/10/18) HIDA SCAN DYE. LASTED ABOUT 30 MINUTES Hydrocodone (Verified Adverse Reaction, Intermediate, hallucinations, 03/10) Oxycodone (Verified Adverse Reaction, Intermediate, hallucinations, ) Current Inpatient Medications Current Inpatient Medications Medications (Trade) Dose Ordered Sig/Abby Route Start Time Stop Time Status Last Admin Dose Admin Furosemide (Lasix Tab) 20 mg QAM PRN PO 03/10/18 15:30 04/09/18 15:29 Lorazepam (Ativan Tab) 1 mg HS PO 03/10/18 21:00 04/09/18 20:59 Losartan Potassium (coZAAR TAB) 50 mg QPM PO 03/10/18 21:00 04/09/18 20:59 Potassium Chloride (Klor-Con M10) 10 meq QPM PO 03/10/18 21:00 04/09/18 20:59 Guaifenesin (Mucinex Contr Rel Tab) 600 mg Q12 PRN PO 03/10/18 15:30 04/09/18 15:29 Potassium Chloride/Dextrose/ Sod Cl 1,000 ml @ 100 mls/hr Q10H IV 03/10/18 16:48 03/11/18 15:27 Celecoxib (CeleBREX CAP) 200 mg BID PO 03/10/18 21:00 04/09/18 20:59 Morphine Sulfate (MoRPHine SULFATE INJ) 2 mg Q2H PRN IV 03/10/18 15:30 03/24/18 15:29 Acetaminophen (Tylenol Tab) 1,000 mg Q8H PO 03/10/18 22:00 04/09/18 21:59 Magnesium Hydroxide (Milk Of Magnesia Susp) 30 ml Q6H PRN PO 03/10/18 15:30 04/09/18 15:29 Bisacodyl (Dulcolax Supp) 10 mg DAILY PRN [place] 03/10/18 15:30 04/09/18 15:29 Sodium Biphosphate/ Sodium Phosphate (Fleet Enema) 132 ml DAILY PRN [place] 03/10/18 15:30 04/09/18 15:29 Docusate Sodium (coLACE CAP) 100 mg BID PO 03/10/18 21:00 04/09/18 20:59 Diphenhydramine HCl (Benadryl Cap) 25 mg Q8H PRN PO 03/10/18 15:30 04/09/18 15:29 Zolpidem Tartrate (Ambien Tab) 5 mg HSZ PRN PO 03/10/18 15:30 04/09/18 15:29 Multivitamins (Multivitamin Tab) 1 tab QAM PO 03/11/18 09:00 04/10/18 08:59 Ondansetron HCl (Zofran Inj) 4 mg Q6H PRN IV 03/10/18 15:30 04/09/18 15:29 Metoclopramide HCl (Reglan Inj) 10 mg Q6H PRN IV 03/10/18 15:30 04/09/18 15:29 Pantoprazole Sodium (Protonix Tab) 40 mg QAM PO 03/11/18 09:00 03/14/18 09:01 Tramadol HCl (Ultram Tab) 1 TABLET FOR PAIN RATING... Q4H PRN PO 03/10/18 15:30 04/09/18 15:29 Cefazolin Sodium 1000 mg/Syringe 7.5 ml @ 2.5 mls/min Q8H IV 03/10/18 20:00 03/11/18 04:02 Aspirin (Ecotrin Tab) 81 mg BID PO 03/10/18 21:00 04/09/18 20:59 Morphine Sulfate (MoRPHine SULFATE INJ) 4 mg Q2H PRN IV 03/10/18 16:00 03/24/18 15:59 Review of Systems Pertinent positives and negatives reviewed in HPI--all others negative Physical Exam Date Time Temp Pulse Resp B/P (MAP) Pulse Ox O2 Delivery O2 Flow Rate FiO2 03/10/18 16:45 36.5 73 16 134/72 (92) 99 Nasal Cannula 2.0 03/10/18 16:00 72 23 141/56 98 Nasal Cannula 2 03/10/18 15:45 36.6 72 20 138/71 99 Nasal Cannula 2 03/10/18 15:35 68 15 124/63 99 Nasal Cannula 2 03/10/18 15:28 37.0 80 12 136/67 100 Oxymask 10 03/10/18 11:26 36.4 82 20 173/101 99 Room Air General Appearance: WD/WN, no apparent distress Head: normocephalic, atraumatic Eyes: normal inspection, sclerae normal Respiratory/Chest: normal breath sounds, no respiratory distress Cardiovascular: regular rate, rhythm, no edema Abdomen/GI: non tender, soft Extremities/Musculoskelatal: no calf tenderness, no pedal edema Neurologic/Psych: alert, normal mood/affect, oriented x 3 Skin: normal color, warm/dry Assessment & Plan 72 y/o F who was admitted on 03/10 s/p R hip replacement with Dr. Mitchell. R hip pain: s/p TKA DVT proph and diet as per Pre-op Hb HTN: stable. continue home meds
[2018-03-10] MEDS: D5W AND 1/2NSS + 20MEQ KCL 1,000 ML IV SCH (19:53)
[2018-03-10] MEDS: CEFAZOLIN IV 1,000 MG in SYRINGE 0 ML IV SCH (19:54)
[2018-03-10] MEDS: LORAZEPAM 0.5 MG TAB PO SCH (21:10)
[2018-03-10] MEDS: CeleBREX 200 MG CAP PO SCH (21:12)
[2018-03-10] MEDS: DOCUSATE SODIUM 100 MG CAP PO SCH (21:13)
[2018-03-10] MEDS: ASPIRIN 81 MG ECTAB PO SCH (21:14)
[2018-03-10] MEDS: LOSARTAN POTASSIUM 50 MG TAB PO SCH (21:14)
[2018-03-10] MEDS: POTASSIUM CHLORIDE 10 MEQ TABCR PO SCH (21:15)
[2018-03-10] MEDS: ACETAMINOPHEN 500 MG TAB PO SCH (21:16)
[2018-03-11 03:03] VITALS: BP 145/70; PULSE 70; TEMP 36.5; O2SAT 97
[2018-03-11] MEDS: CEFAZOLIN IV 1,000 MG in SYRINGE 0 ML IV SCH (04:00)
[2018-03-11] MEDS: D5W AND 1/2NSS + 20MEQ KCL 1,000 ML IV SCH (04:35)
[2018-03-11] MEDS: TRAMADOL HCL 50 MG TAB PO PRN ×3 (04:42→22:15)
[2018-03-11] MEDS: ACETAMINOPHEN 500 MG TAB PO SCH ×3 (05:36→21:24)
[2018-03-11 06:31] LABS: HEMATOCRIT 29.7 % (37-47); HEMOGLOBIN 9.8 g/dL (12.0-16.0); IG# 0.05 K/uL (0.00-0.02); LYMPH % 6.7 %; LYMPH ABS # 1.08 K/uL (1.2-3.4); MEAN CELL VOLUME 76.5 fL (80-100); MEAN CORPUSCULAR HEMOGLOBIN 25.3 pg (25-34); MEAN PLATELET VOLUME 10.7 fL (7.4-10.4); MONO ABS # 1.12 K/uL (0.11-0.59); NEUT ABS # 13.85 K/uL (1.4-6.5); PLATELET COUNT 260 K/uL (130-400); RED CELL DISTRIBUTION WIDTH CV 15.1 % (11.5-14.5); RED CELL DISTRIBUTION WIDTH SD 42.5 fL (36.4-46.3)
[2018-03-11 07:03] LABS: CALCIUM 8.2 mg/dl (8.5-10.1); CREATININE 0.98 mg/dl (0.60-1.20)
--- NOTE | 2018-03-11 07:45 | Anesthesiology Progress Note ---
Anesthesia Post Op Note Date & Time Mar 11, 2018 at 07:45 Vital Signs Vital Signs Past 12 Hours Date Time Temp Pulse Resp B/P (MAP) Pulse Ox O2 Delivery O2 Flow Rate FiO2 03/11/18 03:03 36.5 70 16 145/70 (95) 97 Room Air 03/10/18 23:40 Room Air 03/10/18 23:21 36.5 68 18 150/64 (92) 98 Room Air Notes Mental Status: alert / awake / arousable, participated in evaluation Pt Amnestic to Procedure: Yes Nausea / Vomiting: adequately controlled Pain: adequately controlled Airway Patency, RR, SpO2: stable & adequate BP & HR: stable & adequate Hydration State: stable & adequate Neuraxial Anesthesia: sensory block resolved Anesthetic Complications: no major complications apparent
--- NOTE | 2018-03-11 07:56 | Orthopedic Progress Note ---
Orthopedic Progress Note Date of Service Mar 11, 2018. Subjective Post OP Day: 1 Reports: feeling well, Denies: chest pain, SOB, nausea / vomiting, light headedness, calf pain Additional Notes: Did not sleep well last night. Having pain in the incision site when moving or getting in/out of bed. No other complaints. Objective calves soft nontender, N/V intact, hip located, dressing C/D/I, A&O x3, toes mobile Date Time Temp Pulse Resp B/P (MAP) Pulse Ox O2 Delivery O2 Flow Rate FiO2 03/11/18 07:10 Room Air 03/11/18 03:03 36.5 70 16 145/70 (95) 97 Room Air 03/10/18 23:40 Room Air 03/10/18 23:21 36.5 68 18 150/64 (92) 98 Room Air 03/10/18 19:26 36.7 78 16 171/79 (109) 96 Room Air 03/10/18 18:15 81 16 156/88 (110) 99 Room Air 03/10/18 17:15 36.4 69 18 139/80 (99) 97 Nasal Cannula 2.0 03/10/18 16:45 36.5 73 16 134/72 (92) 99 Nasal Cannula 2.0 03/10/18 16:15 36.4 74 18 136/71 (92) 100 Nasal Cannula 2.0 03/10/18 16:15 100 Nasal Cannula 2.0 03/10/18 16:00 72 23 141/56 98 Nasal Cannula 2 03/10/18 15:45 36.6 72 20 138/71 99 Nasal Cannula 2 03/10/18 15:35 68 15 124/63 99 Nasal Cannula 2 03/10/18 15:28 37.0 80 12 136/67 100 Oxymask 10 03/10/18 11:26 36.4 82 20 173/101 99 Room Air Laboratory Results 24 Hours: Test 03/11/18 06:17 White Blood Count 16.10 K/uL Red Blood Count 3.88 M/uL Hemoglobin 9.8 g/dL Hematocrit 29.7 % Mean Corpuscular Volume 76.5 fL Mean Corpuscular Hemoglobin 25.3 pg Mean Corpuscular Hemoglobin Concent 33.0 g/dl Platelet Count 260 K/uL Mean Platelet Volume 10.7 fL Neutrophils (%) (Auto) 86.0 % Lymphocytes (%) (Auto) 6.7 % Monocytes (%) (Auto) 7.0 % Eosinophils (%) (Auto) 0.0 % Basophils (%) (Auto) 0.0 % Neutrophils # (Auto) 13.85 K/uL Lymphocytes # (Auto) 1.08 K/uL Monocytes # (Auto) 1.12 K/uL Eosinophils # (Auto) 0.00 K/uL Basophils # (Auto) 0.00 K/uL Assessment & Plan Assessment: POD 1 s/p R MIRNA Plan: PT/OT today Unsure if she wants HH services vs OPPT. Will see how she does in PT Inhouse Planning Pain Management: Celebrex, Ultram, Morphine, PO Tylenol DVT Prophylaxis: TEDs, SCDs, ASA Discharge Planning Discharge Planning: uncertain
[2018-03-11] MEDS: MULTIVITAMIN TAB PO SCH (08:34)
[2018-03-11] MEDS: PANTOprazole SOD 40 MG TAB PO SCH (08:34)
[2018-03-11] MEDS: DOCUSATE SODIUM 100 MG CAP PO SCH ×2 (08:34→21:22)
[2018-03-11] MEDS: ASPIRIN 81 MG ECTAB PO SCH ×2 (08:34→21:23)
[2018-03-11] MEDS: CeleBREX 200 MG CAP PO SCH ×2 (08:35→21:23)
[2018-03-11 08:42] VITALS: BP 140/78; PULSE 69; TEMP 36.5; O2SAT 95
--- NOTE | 2018-03-11 11:24 | Hospitalist Progress Note ---
Hospitalist Progress Note Date of Service Mar 11, 2018. Subjective Pt evaluation today including: conversation w/ patient, physical exam, lab review, review of inpatient medication list Voiding: no voiding problems Patient sitting in bedside chair. Feeling well. Pain is well controlled. Just finished walking the halls w/ PT- did well. Starting to eat/drink now. No BM/flatus postop- starting to ambulate. Bowel regimen ordered. Patient denies any fever, chills, sweats, lightheadedness, dizziness, vision changes, CP, palpitations, edema, SOB, wheezing, cough, abdominal pain, nausea, vomiting, diarrhea, urinary symptoms, melena, numbness/tingling, weakness, anxiety/depression, active bleeding, or new skin discoloration/changes. Medications Current Inpatient Medications Medications (Trade) Dose Ordered Sig/Abby Route Start Time Stop Time Status Last Admin Dose Admin Furosemide (Lasix Tab) 20 mg QAM PRN PO 03/10/18 15:30 04/09/18 15:29 Lorazepam (Ativan Tab) 1 mg HS PO 03/10/18 21:00 04/09/18 20:59 03/10/18 21:10 1 MG Losartan Potassium (coZAAR TAB) 50 mg QPM PO 03/10/18 21:00 04/09/18 20:59 03/10/18 21:14 50 MG Potassium Chloride (Klor-Con M10) 10 meq QPM PO 03/10/18 21:00 04/09/18 20:59 03/10/18 21:15 10 MEQ Guaifenesin (Mucinex Contr Rel Tab) 600 mg Q12 PRN PO 03/10/18 15:30 04/09/18 15:29 Potassium Chloride/Dextrose/ Sod Cl 1,000 ml @ 100 mls/hr Q10H IV 03/10/18 16:48 03/11/18 15:27 03/11/18 04:35 100 MLS/HR Celecoxib (CeleBREX CAP) 200 mg BID PO 03/10/18 21:00 04/09/18 20:59 03/11/18 08:35 200 MG Morphine Sulfate (MoRPHine SULFATE INJ) 2 mg Q2H PRN IV 03/10/18 15:30 03/24/18 15:29 Acetaminophen (Tylenol Tab) 1,000 mg Q8H PO 03/10/18 22:00 04/09/18 21:59 03/11/18 05:36 1,000 MG Magnesium Hydroxide (Milk Of Magnesia Susp) 30 ml Q6H PRN PO 03/10/18 15:30 04/09/18 15:29 Bisacodyl (Dulcolax Supp) 10 mg DAILY PRN GA 03/10/18 15:30 04/09/18 15:29 Sodium Biphosphate/ Sodium Phosphate (Fleet Enema) 132 ml DAILY PRN GA 03/10/18 15:30 04/09/18 15:29 Docusate Sodium (coLACE CAP) 100 mg BID PO 03/10/18 21:00 04/09/18 20:59 03/11/18 08:34 100 MG Diphenhydramine HCl (Benadryl Cap) 25 mg Q8H PRN PO 03/10/18 15:30 04/09/18 15:29 Zolpidem Tartrate (Ambien Tab) 5 mg HSZ PRN PO 03/10/18 15:30 04/09/18 15:29 Multivitamins (Multivitamin Tab) 1 tab QAM PO 03/11/18 09:00 04/10/18 08:59 03/11/18 08:34 1 TAB Ondansetron HCl (Zofran Inj) 4 mg Q6H PRN IV 03/10/18 15:30 04/09/18 15:29 Metoclopramide HCl (Reglan Inj) 10 mg Q6H PRN IV 03/10/18 15:30 04/09/18 15:29 Pantoprazole Sodium (Protonix Tab) 40 mg QAM PO 03/11/18 09:00 03/14/18 09:01 03/11/18 08:34 40 MG Tramadol HCl (Ultram Tab) 1 TABLET FOR PAIN RATING... Q4H PRN PO 03/10/18 15:30 04/09/18 15:29 03/11/18 04:42 100 MG Aspirin (Ecotrin Tab) 81 mg BID PO 03/10/18 21:00 04/09/18 20:59 03/11/18 08:34 81 MG Morphine Sulfate (MoRPHine SULFATE INJ) 4 mg Q2H PRN IV 03/10/18 16:00 03/24/18 15:59 Objective Vital Signs Date Time Temp Pulse Resp B/P (MAP) Pulse Ox O2 Delivery O2 Flow Rate FiO2 03/11/18 08:42 36.5 69 17 140/78 (98) 95 Room Air 03/11/18 07:10 Room Air 03/11/18 03:03 36.5 70 16 145/70 (95) 97 Room Air 03/10/18 23:40 Room Air 03/10/18 23:21 36.5 68 18 150/64 (92) 98 Room Air 03/10/18 19:26 36.7 78 16 171/79 (109) 96 Room Air 03/10/18 18:15 81 16 156/88 (110) 99 Room Air 03/10/18 17:15 36.4 69 18 139/80 (99) 97 Nasal Cannula 2.0 03/10/18 16:45 36.5 73 16 134/72 (92) 99 Nasal Cannula 2.0 03/10/18 16:15 36.4 74 18 136/71 (92) 100 Nasal Cannula 2.0 03/10/18 16:15 100 Nasal Cannula 2.0 03/10/18 16:00 72 23 141/56 98 Nasal Cannula 2 03/10/18 15:45 36.6 72 20 138/71 99 Nasal Cannula 2 03/10/18 15:35 68 15 124/63 99 Nasal Cannula 2 03/10/18 15:28 37.0 80 12 136/67 100 Oxymask 10 03/10/18 11:26 36.4 82 20 173/101 99 Room Air Physical Exam General Appearance: no apparent distress Eyes: normal inspection, PERRL ENT: hearing grossly normal Neck: supple Respiratory/Chest: lungs clear, no respiratory distress, no accessory muscle use Cardiovascular: regular rate, rhythm Abdomen: normal bowel sounds, non tender, soft Extremities: no pedal edema, no calf tenderness Neurologic/Psychiatric: no motor/sensory deficits, alert, normal mood/affect, oriented x 3 Skin: normal color, warm/dry, no rash Laboratory Results Last 24 Hours Test 03/11/18 06:17 White Blood Count 16.10 K/uL Red Blood Count 3.88 M/uL Hemoglobin 9.8 g/dL Hematocrit 29.7 % Mean Corpuscular Volume 76.5 fL Mean Corpuscular Hemoglobin 25.3 pg Mean Corpuscular Hemoglobin Concent 33.0 g/dl Platelet Count 260 K/uL Mean Platelet Volume 10.7 fL Neutrophils (%) (Auto) 86.0 % Lymphocytes (%) (Auto) 6.7 % Monocytes (%) (Auto) 7.0 % Eosinophils (%) (Auto) 0.0 % Basophils (%) (Auto) 0.0 % Neutrophils # (Auto) 13.85 K/uL Lymphocytes # (Auto) 1.08 K/uL Monocytes # (Auto) 1.12 K/uL Eosinophils # (Auto) 0.00 K/uL Basophils # (Auto) 0.00 K/uL RDW Standard Deviation 42.5 fL RDW Coefficient of Variation 15.1 % Immature Granulocyte % (Auto) 0.3 % Immature Granulocyte # (Auto) 0.05 K/uL Sodium Level 135 mmol/L Potassium Level 4.0 mmol/L Chloride Level 106 mmol/L Carbon Dioxide Level 25 mmol/L Anion Gap 4.0 mmol/L Blood Urea Nitrogen 18 mg/dl Creatinine 0.98 mg/dl Est Creatinine Clear Calc Drug Dose 42.3 ml/min Estimated GFR () 66.3 Estimated GFR (Non- 57.2 BUN/Creatinine Ratio 18.7 Random Glucose 170 mg/dl Calcium Level 8.2 mg/dl Assessment and Plan 72 y/o F who was admitted on 03/10 s/p R hip replacement with Dr. Mitchell. s/p R MIRNA by Dr. Mitchell on 03/10: - Surgical management, pain management, PT/OT, and DVT prophylaxis as per primary team - Encourage incentive spirometer - Bowel regimen ordered - Postop CBC and PRP- STABLE Acute blood loss anemia in postop setting- STABLE: Continue to follow H&H Mild hyponatremia: Changed D5W 1/2 NSS + KCL to IV NSS @ 100 ml/hr x1 bag, follow PRP Hyperglycemia, likely secondary to IV steroids- hgbA1c 6.0% in 12/2017: Continue to monitor HTN- STABLE: Continue Losartan 50 mg daily GI prophylaxis: Protonix daily DVT prophylaxis: ASA BID as per surgical team Code status: LEVEL I, FULL Dispo: As per primary team Thank you for this consultation. We will sign-off at this time. Please call with any questions/concerns.
[2018-03-11] MEDS ORDERED: SODIUM CHLORIDE 0.9% 1000ML 1,000 ML IV ONE (11:30)
[2018-03-11 11:44] VITALS: BP 138/68; PULSE 74; TEMP 36.2; O2SAT 95
[2018-03-11 15:25] VITALS: BP 134/66; PULSE 71; TEMP 36.5; O2SAT 93
[2018-03-11] MEDS: LORAZEPAM 0.5 MG TAB PO SCH (22:13)
[2018-03-11] MEDS: LOSARTAN POTASSIUM 50 MG TAB PO SCH (22:14)
[2018-03-11] MEDS: POTASSIUM CHLORIDE 10 MEQ TABCR PO SCH (22:14)
[2018-03-11 23:16] VITALS: BP 144/73; PULSE 80; TEMP 36.7; O2SAT 97
[2018-03-12] MEDS: ACETAMINOPHEN 500 MG TAB PO SCH (05:38)
[2018-03-12 06:24] VITALS: BP 149/79; PULSE 80; TEMP 36.6; O2SAT 92
--- NOTE | 2018-03-12 06:51 | Orthopedic Progress Note ---
Orthopedic Progress Note Date of Service Mar 12, 2018. Subjective Post OP Day: 2 Reports: feeling well, pain controlled w PO medications, Denies: complaints, chest pain, SOB, nausea / vomiting, light headedness, calf pain Objective calves soft nontender, N/V intact, capillary refill less than 2 sec., dressing C /D/I, A&O x3, toes mobile Silverlon in tact Date Time Temp Pulse Resp B/P (MAP) Pulse Ox O2 Delivery O2 Flow Rate FiO2 03/12/18 06:24 36.6 80 18 149/79 (102) 92 Room Air 03/12/18 00:00 Room Air 03/11/18 23:16 36.7 80 19 144/73 (96) 97 Room Air 03/11/18 17:00 Room Air 03/11/18 15:25 36.5 71 18 134/66 (88) 93 Room Air 03/11/18 11:44 36.2 74 18 138/68 (91) 95 Room Air 03/11/18 08:42 36.5 69 17 140/78 (98) 95 Room Air 03/11/18 07:10 Room Air Laboratory Results 24 Hours: Test 03/12/18 04:44 Assessment & Plan Assessment: POD 2 s/p R MIRNA Plan: PT/OT today Home w HH today DVT proph- ASA As per medicine Inhouse Planning Pain Management: Celebrex, Ultram, Morphine, PO Tylenol DVT Prophylaxis: TEDs, SCDs, ASA Discharge Planning Discharge Planning: uncertain
[2018-03-12] MEDS ORDERED: ULT50X PO (06:54)
[2018-03-12] MEDS ORDERED: CLB200 PO (06:54)
[2018-03-12] MEDS ORDERED: ASPI-320 PO (06:54)
[2018-03-12] MEDS ORDERED: ACET-24 PO (06:54)
--- NOTE | 2018-03-12 06:55 | Discharge Instructions ---
Discharge Instructions Date of Service Mar 12, 2018. Admission Reason for Admission: Right Hip Osteoarthritis Discharge Discharge Diagnosis / Problem: Right MIRNA Discharge Goals Goal(s): Improve function Activity Recommendations Activity Limitations: as noted below . Instructions / Follow-Up Instructions / Follow-Up ACTIVITY RECOMMENDATIONS: SELF CARE INSTRUCTIONS AFTER TOTAL HIP REPLACEMENT Until the incision and soft tissues around your hip have healed, there is a possibility that the hip prosthesis could dislocate. A. Observe the following precautions to prevent dislocation: 1. Don't bend your hip greater than 90 degrees. 2. Avoid crossing your legs or ankles while standing or lying. 3. Sit with your feet placed 6 inches apart. 4. When sitting, keep your knees below your hips. Sit on a firm surface, avoid deep, soft chairs and couches. Use an elevated toilet seat in the bathroom. 5. Don't bend over at the waist. Use a long handled shoehorn and a sock aid to help you put on your shoes and socks. A surface plate inspector can help you picker objects that are too high or too low to reach. 6. Keep car riding to a minimum for at least one month after surgery. B. Your balance may be shaky for a while. Use crutches or a walker until directed by your doctor. C. Use hand rails when walking on stairs. D. Wear low heeled shoes with non-slip soles. E. Be sure that your floors are free of things that could trip you - throw rugs , electrical cords, small objects. Avoid wet and waxed floors, especially with crutches and canes. F. Try to walk several times a day with rest periods between. G. Continue with all the exercises taught to you in the hospital. Again, make walking a part of your daily routine. SPECIAL CARE INSTRUCTIONS: VERY IMPORTANT TO READ AND REVIEW A. You may still be at risk for phlebitis and blood clots. 1. Wear surgical stockings (DONAVAN hose) for 2 weeks after surgery to improve circulation and reduce swelling. 2. Take Aspirin 81mg twice daily for 4 weeks or as directed by your doctor. This is your blood thinner. 3. High risk patients may be prescribed a stronger blood thinner if necessary. 4. If you are on Coumadin normally, your family doctor/rn medical inpatient services should monitor your blood work. Expect a phone call the day of or the day after bloodwork is drawn to adjust your dosage. B. You must take antibiotics before having dental work, bladder, bowel and other surgery. Your doctor will provide you with a permanent card to carry describing precautions. C. Call [facility] if you have a fever, redness or swelling around the incision, cloudy drainage from incision, or sudden increase in pain in your hip, not relieved by your regular pain medication. D. Please call the office at if you have any concerns or questions about your operation or recovery. * YOU MAY SHOWER, NO TUB BATHS UNTIL CLEARED BY YOUR DOCTOR. * WEAR DONAVAN HOSE 20 HOURS PER DAY FOR 2 WEEKS. * YOU SHOULD USE A WALKER OR CRUTCHES FOR 2-4 WEEKS. THIS WILL HELP PREVENT STRAIN ON YOUR HIP MUSCLE AND ALLOW IT TO HEAL PROPERLY. YOU MAY WEAN TO A CANE TOLERATED. * MOST PATIENTS WILL HAVE HOME NURSING FOR THERAPY. IF YOU DECIDE TO DO OUTPATIENT PHYSICAL THERAPY, PLEASE SCHEDULE THIS 3 TIMES PER WEEK. * YOU MAY HAVE A LARGE, BAND-LILIBETH LIKE DRESSING (SILVERON). THIS WILL REMAIN ON YOUR INCISION FOR 7 DAYS, THEN CAN BE REMOVED. IF INCISION IS LEAKING THROUGH DRESSING, PLEASE CALL THE OFFICE . FOLLOW UP VISIT: If appointment is not already scheduled: Please call [facility] to make a follow-up appointment for 2 weeks after your surgery at . Current Hospital Diet Patient's current hospital diet: Regular Diet Discharge Diet Recommended Diet: Regular Diet Procedures Procedures Performed: Right Total Hip Arthroplasty, Uncemented Pending Studies Studies pending at discharge: no Laboratory Results Hemoglobin A1c Test 01/03/18 11:05 Range/Units Estimated Average Glucose 126 mg/dl Hemoglobin A1c 6.0 H 4.5-5.6 % Medical Emergencies . Who to Call and When: Medical Emergencies: If at any time you feel your situation is an emergency, please call 911 immediately. . Non-Emergent Contact Non-Emergency issues call your: Primary Care Provider . "Provider Documentation" section prepared by Glenn Ramirez. . [place] Drug Monitoring Program Search Results: patient reviewed within database, no issues identified
[2018-03-12 07:34] VITALS: BP 126/72; PULSE 73; O2SAT 100
[2018-03-12] MEDS: PANTOprazole SOD 40 MG TAB PO SCH (07:35)
[2018-03-12] MEDS: MULTIVITAMIN TAB PO SCH (07:36)
[2018-03-12 07:56] LABS: BASO % 0.1 %; BASO ABS # 0.01 K/uL (0-0.2); EOS % 0.9 %; HEMATOCRIT 29.5 % (37-47); HEMOGLOBIN 9.5 g/dL (12.0-16.0); IG# 0.05 K/uL (0.00-0.02); LYMPH % 13.9 %; LYMPH ABS # 1.58 K/uL (1.2-3.4); MEAN CELL VOLUME 77.8 fL (80-100); MEAN CORPUSCULAR HEMOGLOBIN 25.1 pg (25-34); MEAN CORPUSCULAR HGB CONC 32.2 g/dl (32-36); MEAN PLATELET VOLUME 10.8 fL (7.4-10.4); MONO % 7.6 %; MONO ABS # 0.87 K/uL (0.11-0.59); NEUT % 77.1 %; NEUT ABS # 8.78 K/uL (1.4-6.5); PLATELET COUNT 241 K/uL (130-400); RED CELL DISTRIBUTION WIDTH CV 15.8 % (11.5-14.5); RED CELL DISTRIBUTION WIDTH SD 44.8 fL (36.4-46.3); WHITE BLOOD COUNT 11.39 K/uL (4.8-10.8)
[2018-03-12] MEDS: ASPIRIN 81 MG ECTAB PO SCH (08:17)
[2018-03-12] MEDS: DOCUSATE SODIUM 100 MG CAP PO SCH (08:17)
[2018-03-12] MEDS: CeleBREX 200 MG CAP PO SCH (08:17)
[2018-03-12 08:23] LABS: CALCIUM 8.1 mg/dl (8.5-10.1); CREATININE 0.84 mg/dl (0.60-1.20); POTASSIUM 3.8 mmol/L (3.5-5.1)
[2018-03-12 09:25] VITALS: BP 126/72; PULSE 73; TEMP 36.6; O2SAT 100
== END 2018-03-12 11:14 | disposition home health service (06) | DRG 470 ==
LOC: EDBD → C.ACU 10:40 → C.3E 15:33 → ENRESERV 15:53
PROVIDERS: ADMIT Orthopaedic Surgery Sports Medicine; ATTEND Orthopaedic Surgery Sports Medicine
PROC: 0SR903A Replacement of Right Hip Joint with Ceramic Synthetic Substitute, Uncemented, Open Approach (ICD-10-PCS; principal; 2018-03-10 13:00)
DX: M16.11 Unilateral primary osteoarthritis, right hip (principal); D62 Acute posthemorrhagic anemia; E87.1 Hypo-osmolality and hyponatremia; R73.9 Hyperglycemia, unspecified; T38.0X5A Adverse effect of glucocorticoids and synthetic analogues, initial encounter; M25.751 Osteophyte, right hip; I10 Essential (primary) hypertension; F41.9 Anxiety disorder, unspecified; Z79.899 Other long term (current) drug therapy; Z88.5 Allergy status to narcotic agent; Z91.041 Radiographic dye allergy status

== ENCOUNTER 2018-12-22 11:23 | Inpatient (IN) ==
[2018-12-22] MEDS ORDERED: ASPIRIN CHEW 324 MG PO STA (11:56)
[2018-12-22 12:07] LABS: Hematocrit (blood only) 31.5 % (37-47); Hemoglobin 9.1 g/dL (12.0-16.0); Mean Corpuscular Hgb Conc 28.9 g/dL (32-36); Mean Corpuscular Volume 71.1 fL (80-100); Mean Platelet Volume 10.1 fL (7.4-10.4); Platelet Count 376 K/uL (130-400); RDW Coefficient of Variation 16.4 % (11.5-14.5); Red Blood Count 4.43 M/uL (4.2-5.4); White Blood Count 7.73 K/uL (4.8-10.8)
[2018-12-22 12:22] LABS: Alanine Aminotransferase 17 U/L (12-78); Albumin Level 3.6 gm/dl (3.4-5.0); Aspartate Aminotransferase 10 U/L (15-37); BUN Creatinine Ratio 14.3 (10-20); Blood Urea Nitrogen 13 mg/dl (7-18); Calcium 9.4 mg/dl (8.5-10.1); Carbon Dioxide 28 mmol/L (21-32); Chloride 104 mmol/L (98-107); Creatinine Clr Calc Pharmacy 47.6 ml/min; Est GFR (African American) 70.2; Est GFR (Non-African American) 60.5; Glucose 135 mg/dl (70-99); Potassium 3.7 mmol/L (3.5-5.1); Sodium 138 mmol/L (136-145)
[2018-12-22 12:27] LABS: Alkaline Phosphatase 93 U/L (45-117); Bilirubin,Total 0.4 mg/dl (0.2-1); Globulin 3.6 gm/dl (2.5-4.0); Total Protein 7.2 gm/dl (6.4-8.2); Troponin I < 0.015 ng/ml (0-0.045)
[2018-12-22 12:36] LABS: Basophils # (auto) 0.08 K/uL (0-0.2); Eosinophils # (auto) 0.21 K/uL (0-0.5); Eosinophils % (auto) 2.7 %; Immature Granulocytes # (auto) 0.02 K/uL (0.00-0.02); Immature Granulocytes % (auto) 0.3 %; Lymphocytes # (auto) 1.34 K/uL (1.2-3.4); Lymphocytes % (auto) 17.3 %; Microcytosis Present; Monocytes # (auto) 0.53 K/uL (0.11-0.59); Monocytes % (auto) 6.9 %; Neutrophils # (auto) 5.55 K/uL (1.4-6.5); Neutrophils % (auto) 71.8 %
--- NOTE | 2018-12-22 12:36 | XRay Report ---
XR chest 1V portable CLINICAL HISTORY: Atypical chest pain COMPARISON STUDY: 04/13/2017 FINDINGS: The heart is mildly enlarged. There is mild elevation of the interstitium suggesting mild p ulmonary vascular congestion/fluid overload. There is a small left pleural effusion[ IMPRESSION: Radiographic evidence of mild pulmonary vascular congestion/fluid overload. Small left pl eural effusion. No evidence of lobar consolidation. Electronically signed by: Migel Angulo M.D. 12/22/2018 12:35 PM
--- NOTE | 2018-12-22 15:12 | History & Physical Report ---
Date of Service December 22, 2018 Assessment & Plan (1) MCKINNON (dyspnea on exertion): Concern for CHF given the worsening of symptoms after stopping long- standing Lasix. ED provider also concerned for PE, so V/Q scan and LE Dopplers are pending. Finally, anginal-equivalent symptoms also possible, so will also consider cardiology consult vs. stress testing inpatient. EKG on admission showed TWI in aVL only; no other signs of ischemia. - Echo - Lasix 40mg IV x 1 in the ED - BNP ordered - Telemetry - I&Os and daily weights - Trend troponins - Follow up PE/DVT testing (2) Hypertension: Long-standing HTN per the patient; only on losartan. Stopped ~3 weeks ago per patient. Patient reports she was told by Dr. Johnson to stop the medication , but it may have been a miscommunication as his note does not indicate stopping the losartan. BP in the ED was 190/110, indicating she clearly needs HTN treatment. - Restart losartan - Hydralazine PRN - Monitor BP (3) Anemia: Baseline hgb seems to vary from ~12 to down to ~9.5. Lower on admission at 9.1. Microcytic. - Iron testing - Monitor for signs of bleeding (4) Upper GI bleed: History of GI bleed noted in chart, though I am unable to find any records. - Monitor hemoglobin as above and for signs of bleeding (5) DVT prophylaxis: SCDs - Per calculator, low risk History of Present Illness Primary Care Provider: Ira Bejarano MD 73yo F w/ hx of HTN who presents with shortness of breath worsening over several months. Per patient, got bronchitis in July and hasn't felt well since then. Reports increased dyspnea on exertion, orthopnea. The patient saw Dr. Johnson in clinic ~3 weeks ago and was told to stop her Lasix at that time which she'd been on for years for LE swelling. Also stopped her losartan at that time. Per outpatient note, he was worried that the potassium supplement she had been on was causing pill esophagitis or gastritis. He had her stop the Lasix (thinking she didn't really need it) and the potassium at that time, and also started her on a PPI and sulcrafate. Since that time, she notes she took the Lasix twice about a week ago for some LE swelling that went up to her knees, but otherwise, has not been taking it. She reports some right-sided chest pain that occurs wtih exertion as well. However, she denies nausea, vomiting, GERD-type symptoms, lightheadedness, or dizziness with exertion. Allergies Allergy/AdvReac Type Severity Reaction Status Date / Time codeine Allergy Unknown SWELLING Verified 12/22/18 12:30 OF FACE &BODY Iodinated Contrast- Oral and Allergy Unknown PT STATES Verified 12/22/18 12:30 IV Dye SHE HAD A "PARALYZED REACTION AND COULD NOT SPEAK" hydrocodone AdvReac Intermediate hallucinati Verified 12/22/18 12:30 ons oxycodone AdvReac Intermediate hallucinati Verified 12/22/18 12:30 ons Home Medications Home Medications Medication Instructions Recorded Confirmed Type lorazepam 1 mg PO HS PRN 12/22/18 12/22/18 History losartan 50 mg PO DAILY 12/22/18 12/22/18 History pantoprazole 40 mg PO DAILY 12/22/18 12/22/18 History sucralfate 1,000 mg PO QID 12/22/18 12/22/18 History Past Med/Surg History Medical History Hypertension (Chronic) Abdominal pain Anemia (Acute) Degenerative joint disease of right hip Diverticulitis Hypokalemia (Acute) Upper GI bleed (Acute) Surgical History S/P cholecystectomy 10/2017 Family History Mother Heart failure Social History Feels Safe at Home: Yes Smoking Status: Never smoker Review of Systems Constitutional: no fever, no chills and no sweats Eyes: no diplopia Ear, Nose, Mouth, Throat: no ear trauma, no nasal discharge and no dental pain Respiratory: no cough, no chest congestion and no dyspnea Cardiovascular: + chest pain, + dyspnea, + dyspnea on exertion, + orthopnea and + edema; no radiating jaw, neck or arm pain, no palpitations and no syncope Gastrointestinal: no abdominal pain, no belching, no constipation, no diarrhea/ loose stools, no blood in stools and no melena Musculoskeletal: no back pain, no joint pain and no muscle weakness Integumentary: no rash, no skin ulcer and no erythema Neurologic: no generalized weakness, no loss of sensation, no numbness and no paresthesia Psychiatric: no depression and no anxiety Endocrine: no fatigue, no polydipsia and no polyphagia Physical Exam 2 Vital Signs (Past 24 Hours): Last Vital Signs Temp 36.4 C L 12/22/18 11:29 Pulse 91 H 12/22/18 13:59 Resp 25 H 12/22/18 13:59 BP 189/108 H 12/22/18 13:59 Pulse Ox 98 12/22/18 13:59 Constitutional: WD/WN, vitals as above Eyes: EOM intact bilaterally; no conjunctival abnormality ENMT: external ear and nose normal, oropharynx normal Neck: trachea midline, no thyromegaly normal visual inspection Respiratory: normal respiratory effort, lungs clear to auscultation no respiratory distress Cardiovascular: RRR, no murmur, no edema Rate/Rhythm: regular rate and regular rhythm Heart Sounds: normal S1, normal S2 and + gallop Vessels: no JVD Extremities: no edema Gastrointestinal (Abdomen): Inspection/Auscultation: abdomen normal to inspection; abdomen not distended Musculoskeletal: no cyanosis or clubbing, extremities motor strength 5/5 Skin: no rashes, warm and dry Neurologic: moves all extremities and awake Psychiatric: Orientation: alert, oriented to person and cooperative
--- NOTE | 2018-12-22 15:17 | Ultrasound Report ---
BILATERAL LOWER EXTREMITY VENOUS DOPPLER HISTORY: Acute bilateral lower leg pain and swelling +dd and sob unable to CT PE COMPARISON STUDY: None. FINDINGS: There is normal compressibility, flow, and augmentation within the bilateral lower extremit y deep venous systems. IMPRESSION: No sonographic evidence of deep venous thrombosis within the right or left lower extremity. Electronically signed by: Kirby Farrell M.D. 12/22/2018 3:16 PM
--- NOTE | 2018-12-22 16:49 | Emergency Department Note ---
Entered by Katelyn Gaston acting as a scribe for Tres Low DO History of Present Illness General Chief complaint: Cardiac Assessment Stated complaint: HEART, SOB History of Present Illness Onset (ago): month(s) 5 Location: chest Pain Consistency: + other (worsening) Maximum Pain Intensity: 1 Relieved By: + rest Exacerbated By: + movement Associated symptoms: + chest pain (right sided), + cough (intermittent) and + other (The patient complains of leg swelling. The patient denies rhinorrhea. ); no nausea/vomiting The patient is a 73 year old female who presents to the ED with complaints of worsening shortness of breath with an onset of 5 months ago. She states that she was referred to the ED from her PCP. She notes that the pain is exacerbated with movement and alleviated with rest. The patient complains of intermittent cough, right sided chest pain, and leg swelling. The patient denies rhinorrhea, nausea, and vomiting. She notes that her mother had heart failure. The patient denies diabetes, hypertension, hyperlipidemia, CAD, history of sudden at a young age, and smoking. The patient denies swelling of calves, recent trips, history of immobilization or recent surgery, prior history of DVT, hemoptysis, and history of malignancy. No other exacerbating or remitting factors. Home Medications Home Medications Medication Instructions Recorded Confirmed Type lorazepam 1 mg PO HS PRN 12/22/18 12/22/18 History losartan 50 mg PO DAILY 12/22/18 12/22/18 History pantoprazole 40 mg PO DAILY 12/22/18 12/22/18 History sucralfate 1,000 mg PO QID 12/22/18 12/22/18 History Allergies Allergy/AdvReac Type Severity Reaction Status Date / Time codeine Allergy Unknown SWELLING Verified 12/22/18 12:30 OF FACE &BODY Iodinated Contrast- Oral and Allergy Unknown PT STATES Verified 12/22/18 12:30 IV Dye SHE HAD A "PARALYZED REACTION AND COULD NOT SPEAK" hydrocodone AdvReac Intermediate hallucinati Verified 12/22/18 12:30 ons oxycodone AdvReac Intermediate hallucinati Verified 12/22/18 12:30 ons Past Med/Surg History Medical History Hypertension (Chronic) Abdominal pain Anemia (Acute) Degenerative joint disease of right hip Diverticulitis Hypokalemia (Acute) Upper GI bleed (Acute) Surgical History S/P cholecystectomy 10/2017 Family History Mother Heart failure Social History Feels Safe at Home: Yes Smoking Status: Never smoker Review of Systems See HPI for pertinent positives & negatives. and A total of 10 systems reviewed and were otherwise negative Physical Exam Vital Signs Vital Signs - 24 hr 12/22/18 11:29 12/22/18 11:58 12/22/18 11:59 Temperature 36.4 C L Temperature Source Oral Sepsis Recent Fever Within 48 Hours No Sepsis New/Unexplained Change in Mental Status No Sepsis Action Taken by Nursing No Action Required Pulse Rate 96 H Pulse Rate [Left Finger] 88 Pulse Rhythm [Left Finger] Pulse Strength [Left Finger] Respiratory Rate 20 20 Respiratory Effort / Characteristics Respiratory Depth Respiratory Pattern Blood Pressure 196/90 H Blood Pressure [Left Arm] 170/88 H Blood Pressure Mean 125 Blood Pressure Mean [Left Arm] 115 Blood Pressure Position [Left Arm] Pulse Oximetry 98 99 99 Oxygen Delivery Method Room Air Room Air Room Air 12/22/18 13:59 12/22/18 15:54 Temperature Temperature Source Sepsis Recent Fever Within 48 Hours Sepsis New/Unexplained Change in Mental Status Sepsis Action Taken by Nursing Pulse Rate Pulse Rate [Left Finger] 91 H 84 Pulse Rhythm [Left Finger] Regular Pulse Strength [Left Finger] Normal Respiratory Rate 25 H 20 Respiratory Effort / Characteristics Non-Labored Spontaneous Respiratory Depth Normal Respiratory Pattern Regular Blood Pressure Blood Pressure [Left Arm] 189/108 H 149/105 H Blood Pressure Mean Blood Pressure Mean [Left Arm] 135 119 Blood Pressure Position [Left Arm] Lying Pulse Oximetry 98 96 Oxygen Delivery Method Room Air Room Air GENERAL: Sitting up, dyspneic on conversation, in mild distresses non-toxic. EYE EXAM: normal conjunctiva. OROPHARYNX: no exudate, no erythema, lips, buccal mucosa, and tongue normal and mucous membranes are moist NECK: supple, no nuchal rigidity, no adenopathy, non-tender, no JVD. LUNGS: Clear to auscultation. Normal chest wall mechanics HEART: Distant, no murmurs, S1 normal and S2 normal ABDOMEN: abdomen soft, non-tender, normo-active bowel, sounds, no masses, no rebound or guarding. BACK: Back is symmetrical on inspection and there is no deformity, no midline tenderness, no CVA tenderness. SKIN: no rashes and no bruising UPPER EXTREMITIES: upper extremities are grossly normal. LOWER EXTREMITIES: Calve are equal bilaterally. NEURO EXAM: Normal sensorium, cranial nerves II-XII grossly intact, normal speech, no gross weakness of arms, no gross weakness of legs. Course 1142: Past medical records reviewed. The patient was evaluated in room C02B, and a complete history and physical examination were performed. 1253: I reviewed the patient's case with Dr. Sylvia Shah. 1326: I reviewed the patient's case with Eb Viveros [facility]. He will evaluate the patient for further management. Consultations Consultation #1: 1253: I reviewed the patient's case with Dr. Sylvia Shah. Time: 12:53 Consultation #2: 1326: I reviewed the patient's case with Eb Viveros [facility]. He will evaluate the patient for further management. Time: 13:26 Administered Medications Discontinued Medications Aspirin (Aspirin) 324 mg PO NOW STA Stop: 12/22/18 11:57 Last Admin: 12/22/18 12:04 Dose: 324 mg Medical Decision Making Differential Diagnosis Differential diagnosis: Etiologies such as shingles, musculoskeletal pain, pericarditis, myocarditis, cardiac ischemia, pericardial tamponade, pneumonia, pneumothorax, pleural effusion, hemothorax, pleurisy, aortic pathology, pulmonary embolism, intra- abdominal process, as well as others were considered. Medical Records Attestation: I reviewed the patient's medical records. Home Medications Current Medication List: was personally reviewed by me Laboratory Data Attestation: I reviewed the patient's lab results. Result diagrams: 12/22/18 11:50 12/22/18 11:50 Lab Results 12/22/18 12/22/18 12/22/18 Range/Units 11:50 11:50 11:50 WBC 7.73 (4.8-10.8) K/uL RBC 4.43 (4.2-5.4) M/uL Hgb 9.1 L (12.0-16.0) g/dL Hct 31.5 L (37-47) % MCV 71.1 L (80-100) fL MCH 20.5 L (25-34) pg MCHC 28.9 L (32-36) g/dL RDW Std Deviation 43.0 (36.4-46.3) fL RDW Coeff of Erica 16.4 H (11.5-14.5) % Plt Count 376 (130-400) K/uL MPV 10.1 (7.4-10.4) fL Immature Gran % (Auto) 0.3 % Neut % (Auto) 71.8 % Lymph % (Auto) 17.3 % [place] % (Auto) 6.9 % Eos % (Auto) 2.7 % Baso % (Auto) 1.0 % Immature Gran # (Auto) 0.02 (0.00-0.02) K/uL Neut # (Auto) 5.55 (1.4-6.5) K/uL Lymph # (Auto) 1.34 (1.2-3.4) K/uL [place] # (Auto) 0.53 (0.11-0.59) K/uL Eos # (Auto) 0.21 (0-0.5) K/uL Baso # (Auto) 0.08 (0-0.2) K/uL Microcytosis Present D-Dimer 950 H* (0-500) ug/L FEU Sodium 138 (136-145) mmol/L Potassium 3.7 (3.5-5.1) mmol/L Chloride 104 (98-107) mmol/L Carbon Dioxide 28 (21-32) mmol/L Anion Gap 6.0 (3-11) BUN 13 (7-18) mg/dl Creatinine 0.93 (0.6-1.2) mg/dl Est Cr Clr Drug Dosing 47.6 ml/min Est GFR ( Amer) 70.2 Est GFR (Non-Af Amer) 60.5 BUN/Creatinine Ratio 14.3 (10-20) Glucose 135 H (70-99) mg/dl Calcium 9.4 (8.5-10.1) mg/dl Total Bilirubin 0.4 (0.2-1) mg/dl AST 10 L (15-37) U/L ALT 17 (12-78) U/L Alkaline Phosphatase 93 (45-117) U/L Troponin I < 0.015 (0-0.045) ng/ml Total Protein 7.2 (6.4-8.2) gm/dl Albumin 3.6 (3.4-5.0) gm/dl Globulin 3.6 (2.5-4.0) gm/dl Albumin/Globulin Ratio 1.0 (0.9-2) Lipase 137 (73-393) U/L Imaging Data Radiologist's Impression: Radiology results as stated below per my review and the radiologist's interpretation: XR chest 1V portable CLINICAL HISTORY: Atypical chest pain COMPARISON STUDY: 04/13/2017 FINDINGS: The heart is mildly enlarged. There is mild elevation of the interstitium suggesting mild pulmonary vascular congestion/fluid overload. There is a small left pleural effusion[ IMPRESSION: Radiographic evidence of mild pulmonary vascular congestion/fluid overload. Small left pleural effusion. No evidence of lobar consolidation. Electronically signed by: Migel Angulo M.D. 12/22/2018 12:35 PM Dictated: 12/22/18 1234 Transcribed: 12/22/18 1234 ECG Data Attestation: I personally reviewed and interpreted this ECG as follows: Indication: chest pain Rate (beats per minute): 97 Rhythm: sinus rhythm Findings: + other (ST changes in the high lateral, septal Q waves. ), + T-wave inversion and + left axis deviation Change: the following changes noted (January 2018 - High lateral is new. ) Blood Pressure Blood Pressure Findings: Elevated blood pressure Blood Pressure Disposition: further management by hospitalist [facility] Narrative Patient is a 73-year-old female who presents the ER for shortness of breath which is been worsening since this past July. She was seen by the PCP and sent in for EKG changes. I did discuss over the phone with the PCP her findings and the referral. Patient did have some right-sided chest pain. No history of CHF or COPD. EKG did show some new slight changes in the high pleural effusion and congestion. No JVD or pitting edema. Question anginal equivalent versus CHF. D-dimer was elevated and unable to perform CT PE. Duplex of lower extremities was ordered secondary to this. Order VQ scan but may not be able to be done until after 5. Duplex was negative of the lower extremities. Patient family were updated at bedside. They are admitted to the hospitalist for further workup. Impression & Plan MCKINNON (dyspnea on exertion), Chest pain, Acute electrocardiogram changes Discharge Plan Visit Data *Final* Discharge Date/Time: 12/22/18 15:56 Chief Complaint: Cardiac Assessment Stated Complaint: HEART, SOB ED Provider: Tres Low Discharge Problem: MCKINNON (dyspnea on exertion), Chest pain, Acute electrocardiogram changes Patient Disposition: Admitted As Inpatient Discharge Instructions Interventions: ED Discharge Assessment Last Done: 12/22/18 15:56 The scribe's documentation has been prepared under my direction and personally reviewed by me in its entirety. I confirm that the note above accurately reflects all work, treatment, procedures, and medical decision making performed by me.
--- NOTE | 2018-12-22 17:04 | Nuclear Medicine Report ---
NM pul vent and perfuse CLINICAL HISTORY: 73 years-old Female presenting with sob, +dd, history of bronchitis. TECHNIQUE: Immediately following the inhalation of 32.2 mCi of technetium 99 M DTPA for the ventilati on scan and the intravenous administration of 6.7 mCi of technetium 99 M MAA for the perfusion scan, anterior, oblique, lateral, and posterior views of the chest were obtained. Modified PIOPED II criter ia were utilized for assessment. COMPARISON: Chest x-ray from the same day. FINDINGS: No mismatched defects are identified on this examination. Perfusion and ventilation to both lungs is preserved. Ingested ventilation radiotracer evident in the gastric lumen and small bowel. Central air way deposition of ventilation tracer does not significantly limit evaluation. Reference: Modified PIOPED II criteria Normal: No perfusion defects. Very low likelihood ratio: Nonsegmental, perfusion defect < chest x-ray lesion, 1-3 small segmental d efects, solitary triple matched defect (< or = 1 segment) in mid or upper lung, stripe sign, solitary large pleural effusion, > or = to 2 matched defects with regionally normal chest x-ray. High likelihood ratio: > or = 2 large mismatch segmental defects. Nondiagnostic: All other findings. IMPRESSION: Normal. Electronically signed by: Trey Vera M.D. 12/22/2018 5:03 PM
[2018-12-22] MEDS ORDERED: HydrALAZINE HCL 20 MG/ML VIAL IV PRN (17:15)
[2018-12-22] MEDS ORDERED: ALUMINUM/MAGNESIUM/SIMETH (MAALOX MAX) 30 ML UDC PO PRN (17:15)
[2018-12-22] MEDS ORDERED: ACETAMINOPHEN 325 MG TAB PO PRN (17:15)
[2018-12-22] MEDS ORDERED: FUROSEMIDE 40 MG/4 ML VIAL IV STA (17:15)
[2018-12-22] MEDS ORDERED: FUROSEMIDE 40 MG in SYRINGE 0 ML IV ONE (17:30)
[2018-12-22 18:23] LABS: NT Pro B Type Natriuretic Pept 624 pg/ml (0-900); Troponin I < 0.015 ng/ml (0-0.045)
[2018-12-22] MEDS: LORazepam 1 MG TAB PO PRN (22:21)
[2018-12-23 07:55] LABS: Hematocrit (blood only) 29.1 % (37-47); Hemoglobin 8.7 g/dL (12.0-16.0); Mean Corpuscular Hgb Conc 29.9 g/dL (32-36); Mean Corpuscular Volume 70.1 fL (80-100); Platelet Count 376 K/uL (130-400); RDW Coefficient of Variation 16.4 % (11.5-14.5); Red Blood Count 4.15 M/uL (4.2-5.4); White Blood Count 9.38 K/uL (4.8-10.8)
[2018-12-23 08:24] LABS: BUN Creatinine Ratio 20.1 (10-20); Calcium 8.7 mg/dl (8.5-10.1); Creatinine Clr Calc Pharmacy 45.4 ml/min; Magnesium 2.2 mg/dl (1.8-2.4); Potassium 3.3 mmol/L (3.5-5.1)
[2018-12-23 08:29] LABS: Ferritin 4.6 ng/ml (8-388)
[2018-12-23] MEDS: LOSARTAN POTASSIUM 50 MG TAB PO SCH (08:52)
[2018-12-23] MEDS: PANTOprazole 40 MG TAB PO SCH (08:52)
[2018-12-23] MEDS ORDERED: POTASSIUM CHLORIDE 20 MEQ TABCR PO STA (09:30)
[2018-12-23] MEDS ORDERED: FUROSEMIDE 40 MG in SYRINGE 0 ML IV ONE ×2 (09:45→15:00)
--- NOTE | 2018-12-23 12:37 | Hospitalist Progress Note ---
Date of Service December 23, 2018 Assessment & Plan (1) Acute on chronic diastolic heart failure: - Presented with MCKINNON likely related to acute CHF. - BNP was 624; TTE showed grade I diastolic dysfunction, EF 50-55%. - Doppler of bilat LE and V/Q scan both negative; D-dimer was elevated at 950. - T-wave inversions in aVL on EKG; Trop negative x2 -- no indication for cardio consult. - Monitor I/O's and daily weights. - Start Lasix 40 mg IV BID. (2) Hypertension: - Recently d/c'ed Losartan; resumed medication at admission. - BP now well controlled. - Hydralazine IV prn. (3) Iron deficiency anemia: - Ferritin level 4.6, Iron level 13. - Will start Ferrous sulfate 325 mg BID, titrate to TID if tolerating. - Monitor H/H daily -- hemoglobin decreased to 8.7. (4) Chronic kidney disease, stage II (mild): - Renally dose all meds; monitor closely in setting of diuresis. (5) Upper GI bleed: - History of GI bleed noted in chart, no records of episode. - Monitor H/H as noted above, consider FOBT if anemia persists. (6) Gastritis: - Started on PPI and Carafate as outpatient. - Continue Protonix 40 mg daily. (7) Hypokalemia: - K level 3.3 - ordered K 40 mEq PO. - Monitor levels qAM. (8) DVT prophylaxis: - SCDs; hold pharmacologic ppx. Dispo: Telemetry; continue IV diuretics. Supervising Physician Co-Signing Physician Notes Attending Attestation - Chart reviewed in detail, and care plan d/w VANCE Box. I agree w/ the babb components of her documentation. 73yo female with acute/chronic diastolic CHF. Recent dx of gastritis on EGD by Dr. Johnson. Lasix was stopped recently - likely cause of decompensation. Cont IV lasix. Sav Velasco MD Subjective Pt. is doing well overall today. She is stable on room air. Pt. has ongoing SOB with exertion -- states this has been an ongoing problem at home. She has not been taking Lasix regularly after medication was discontinued by PCP. Denies significant swelling in bilat LE. She has epigastric pain -- was started on PPI and carafate by her PCP for potassium related gastritis. Will continue PPI as inpt. Trop x 2 was negative; no indication for further cardiac work up or cardio consult at this time. Review of Systems All systems reviewed & are unremarkable except as noted in HPI & below Constitutional: + weakness; no fever and no chills Respiratory: + dyspnea on exertion; no cough, no dyspnea and no wheezing Cardiovascular: no chest pain, no palpitations, no syncope and no edema Gastrointestinal: no abdominal pain, no nausea and no constipation Genitourinary (Female): no difficulty urinating Musculoskeletal: no joint pain Allergy / Immunological: no rash Physical Exam 2 Vital Signs (Past 24 Hours): Last Vital Signs Temp 36.8 C 12/23/18 11:45 Pulse 92 H 12/23/18 11:45 Resp 20 12/23/18 11:45 BP 134/76 12/23/18 11:45 Pulse Ox 95 12/23/18 11:45 Physical Exam: General: Resting comfortably in no apparent distress HEENT: NC/AT; PERRLA with EOMI; [place] conjunctiva, MMM. Neck: Supple and nontender Cardiac: RRR Lungs: on room air; bilat crackles in lower lung bases, diminished throughout. Abdomen: Bowel normoactive X 4; Nontender to palpation Extremities: Warm. Mild +1 bilat non pitting LE edema Neuro: No focal weakness Skin: No rash Results & Data Laboratory Results 12/23/18 12/23/18 12/22/18 Range/Units 07:38 07:38 17:38 WBC 9.38 (4.8-10.8) K/uL RBC 4.15 L (4.2-5.4) M/uL Hgb 8.7 L (12.0-16.0) g/dL Hct 29.1 L (37-47) % MCV 70.1 L (80-100) fL MCH 21.0 L (25-34) pg MCHC 29.9 L (32-36) g/dL RDW Std Deviation 42.0 (36.4-46.3) fL RDW Coeff of Erica 16.4 H (11.5-14.5) % Plt Count 376 (130-400) K/uL MPV 10.0 (7.4-10.4) fL Immature Gran % (Auto) % Neut % (Auto) % Lymph % (Auto) % [place] % (Auto) % Eos % (Auto) % Baso % (Auto) % Immature Gran # (Auto) (0.00-0.02) K/uL Neut # (Auto) (1.4-6.5) K/uL Lymph # (Auto) (1.2-3.4) K/uL [place] # (Auto) (0.11-0.59) K/uL Eos # (Auto) (0-0.5) K/uL Baso # (Auto) (0-0.2) K/uL Microcytosis Sodium 139 (136-145) mmol/L Potassium 3.3 L (3.5-5.1) mmol/L Chloride 104 (98-107) mmol/L Carbon Dioxide 27 (21-32) mmol/L Anion Gap 8.0 (3-11) BUN 18 (7-18) mg/dl Creatinine 0.90 (0.6-1.2) mg/dl Est Cr Clr Drug Dosing 45.4 ml/min Est GFR ( Amer) 73.0 Est GFR (Non-Af Amer) 63.0 BUN/Creatinine Ratio 20.1 H (10-20) Glucose 119 H (70-99) mg/dl Calcium 8.7 (8.5-10.1) mg/dl Magnesium 2.2 (1.8-2.4) mg/dl Iron 13 L (35-150) mcg/dl TIBC 394 (250-450) mcg/dl Ferritin 4.6 L (8-388) ng/ml Total Bilirubin (0.2-1) mg/dl Alkaline Phosphatase (45-117) U/L Troponin I < 0.015 (0-0.045) ng/ml NT-Pro-B Natriuret Pep 624 (0-900) pg/ml Total Protein (6.4-8.2) gm/dl Globulin (2.5-4.0) gm/dl Albumin/Globulin Ratio (0.9-2) 12/22/18 12/22/18 Range/Units 11:50 11:50 WBC (4.8-10.8) K/uL RBC (4.2-5.4) M/uL Hgb (12.0-16.0) g/dL Hct (37-47) % MCV (80-100) fL MCH (25-34) pg MCHC (32-36) g/dL RDW Std Deviation (36.4-46.3) fL RDW Coeff of Erica (11.5-14.5) % Plt Count (130-400) K/uL MPV (7.4-10.4) fL Immature Gran % (Auto) 0.3 % Neut % (Auto) 71.8 % Lymph % (Auto) 17.3 % [place] % (Auto) 6.9 % Eos % (Auto) 2.7 % Baso % (Auto) 1.0 % Immature Gran # (Auto) 0.02 (0.00-0.02) K/uL Neut # (Auto) 5.55 (1.4-6.5) K/uL Lymph # (Auto) 1.34 (1.2-3.4) K/uL [place] # (Auto) 0.53 (0.11-0.59) K/uL Eos # (Auto) 0.21 (0-0.5) K/uL Baso # (Auto) 0.08 (0-0.2) K/uL Microcytosis Present Sodium (136-145) mmol/L Potassium (3.5-5.1) mmol/L Chloride (98-107) mmol/L Carbon Dioxide (21-32) mmol/L Anion Gap (3-11) BUN (7-18) mg/dl Creatinine (0.6-1.2) mg/dl Est Cr Clr Drug Dosing ml/min Est GFR ( Amer) Est GFR (Non-Af Amer) BUN/Creatinine Ratio (10-20) Glucose (70-99) mg/dl Calcium (8.5-10.1) mg/dl Magnesium (1.8-2.4) mg/dl Iron (35-150) mcg/dl TIBC (250-450) mcg/dl Ferritin (8-388) ng/ml Total Bilirubin 0.4 (0.2-1) mg/dl Alkaline Phosphatase 93 (45-117) U/L Troponin I < 0.015 (0-0.045) ng/ml NT-Pro-B Natriuret Pep (0-900) pg/ml Total Protein 7.2 (6.4-8.2) gm/dl Globulin 3.6 (2.5-4.0) gm/dl Albumin/Globulin Ratio 1.0 (0.9-2)
[2018-12-23] MEDS: FERROUS SULFATE 325 MG TAB PO SCH (17:06)
[2018-12-23] MEDS: LORazepam 1 MG TAB PO PRN (23:04)
[2018-12-24 07:57] LABS: Hematocrit (blood only) 28.8 % (37-47); Hemoglobin 8.5 g/dL (12.0-16.0); Mean Corpuscular Hgb Conc 29.5 g/dL (32-36); Mean Corpuscular Volume 70.1 fL (80-100); Mean Platelet Volume 10.4 fL (7.4-10.4); Platelet Count 386 K/uL (130-400); RDW Coefficient of Variation 16.4 % (11.5-14.5); RDW Standard Deviation 42.1 fL (36.4-46.3); Red Blood Count 4.11 M/uL (4.2-5.4); White Blood Count 8.99 K/uL (4.8-10.8)
[2018-12-24] MEDS: LOSARTAN POTASSIUM 50 MG TAB PO SCH (08:09)
[2018-12-24] MEDS: PANTOprazole 40 MG TAB PO SCH (08:09)
[2018-12-24] MEDS: FERROUS SULFATE 325 MG TAB PO SCH ×2 (08:09→17:22)
[2018-12-24] MEDS: FUROSEMIDE 40 MG in SYRINGE 0 ML IV SCH ×2 (08:10→14:00)
[2018-12-24 08:27] LABS: BUN Creatinine Ratio 24.6 (10-20); Calcium 8.6 mg/dl (8.5-10.1); Creatinine Clr Calc Pharmacy 43.9 ml/min; Est GFR (African American) 70.2; Est GFR (Non-African American) 60.5; Magnesium 2.1 mg/dl (1.8-2.4); Potassium 3.4 mmol/L (3.5-5.1)
[2018-12-24] MEDS ORDERED: POTASSIUM CHLORIDE 10 MEQ TABCR PO STA (08:52)
--- NOTE | 2018-12-24 13:32 | Hospitalist Progress Note ---
Date of Service December 24, 2018 Assessment & Plan (1) Acute on chronic diastolic heart failure: - Presented with MCKINNON likely related to acute CHF. - BNP was 624; TTE showed grade I diastolic dysfunction, EF 50-55%. - Doppler of bilat LE and V/Q scan both negative; D-dimer was elevated at 950. - T-wave inversions in aVL on EKG; Trop negative x2 -- no indication for cardio consult. - Monitor I/O's and daily weights - has lost ~1.5 kg since admission. - Continue Lasix 40 mg IV BID. (2) Hypertension: - Recently d/c'ed Losartan; resumed medication at admission. - BP well controlled. - Hydralazine IV prn. (3) Iron deficiency anemia: - Ferritin level 4.6, Iron level 13. - Started Ferrous sulfate 325 mg BID, titrate to TID if tolerating. - Monitor H/H daily -- hemoglobin decreased to 8.5. (4) Chronic kidney disease, stage II (mild): - Renally dose all meds; monitor closely in setting of diuresis. (5) Upper GI bleed: - History of GI bleed noted in chart, no records of episode. - Monitor H/H as noted above, consider FOBT if anemia persists. (6) Gastritis: - Started on PPI and Carafate as outpatient. - Continue Protonix 40 mg daily. (7) Hypokalemia: - K level 3.4 - ordered K 20 mEq PO. - Monitor levels qAM. - H/o gastritis in setting of KCl supplements, will monitor for worsening epigastric pain. (8) DVT prophylaxis: - SCDs; Lovenox q24hr. Dispo: Downgrade to med/surg; continue IV diuresis. Supervising Physician Co-Signing Physician Notes Attending Attestation - Chart reviewed in detail, and care plan d/w VANCE Box. I agree w/ the babb components of her documentation. Pt continues to diurese well with IV lasix. Cont diuresis; daily labs. Sav Velasco MD Subjective Pt. is doing well overall. She had itching overnight at site of IV and leads for monitor. Itching improved after nurse changed dressing/pads. Breathing is improved, on room air. She has not walked around -- will walk today to evaluate for SOB with exertion. Pt. has chronic fatigue likely related to iron deficiency anemia. Started ferrous sulfate BID, titrate as tolerated due to very low levels. Epigastric pain improved, on PPI daily. Will continue to monitor for worsening pain as pt. has taken potassium supplements over the last two days. Review of Systems All systems reviewed & are unremarkable except as noted in HPI & below Constitutional: + fatigue and + weakness; no fever and no chills Respiratory: no cough, no dyspnea and no dyspnea on exertion Cardiovascular: no chest pain, no palpitations and no edema Gastrointestinal: no abdominal pain, no nausea and no constipation Genitourinary (Female): no difficulty urinating Musculoskeletal: no joint pain Integumentary: + pruritus Allergy / Immunological: no rash Physical Exam 2 Vital Signs (Past 24 Hours): Last Vital Signs Temp 36.6 C 12/24/18 11:28 Pulse 92 H 12/24/18 11:28 Resp 18 12/24/18 11:28 BP 120/69 12/24/18 11:28 Pulse Ox 95 12/24/18 11:28 Physical Exam: General: Resting comfortably in no apparent distress HEENT: NC/AT; PERRLA with EOMI; [place] conjunctiva, MMM. Neck: Supple and nontender Cardiac: RRR Lungs: on room air; diminished throughout Abdomen: Bowel normoactive X 4; Nontender to palpation Extremities: Warm. No LE edema noted. Neuro: No focal weakness Skin: No rash Results & Data Laboratory Results 12/24/18 12/24/18 Range/Units 07:41 07:41 WBC 8.99 (4.8-10.8) K/uL RBC 4.11 L (4.2-5.4) M/uL Hgb 8.5 L (12.0-16.0) g/dL Hct 28.8 L (37-47) % MCV 70.1 L (80-100) fL MCH 20.7 L (25-34) pg MCHC 29.5 L (32-36) g/dL RDW Std Deviation 42.1 (36.4-46.3) fL RDW Coeff of Erica 16.4 H (11.5-14.5) % Plt Count 386 (130-400) K/uL MPV 10.4 (7.4-10.4) fL Sodium 139 (136-145) mmol/L Potassium 3.4 L (3.5-5.1) mmol/L Chloride 105 (98-107) mmol/L Carbon Dioxide 27 (21-32) mmol/L Anion Gap 6.0 (3-11) BUN 23 H (7-18) mg/dl Creatinine 0.93 (0.6-1.2) mg/dl Est Cr Clr Drug Dosing 43.9 ml/min Est GFR ( Amer) 70.2 Est GFR (Non-Af Amer) 60.5 BUN/Creatinine Ratio 24.6 H (10-20) Glucose 120 H (70-99) mg/dl Calcium 8.6 (8.5-10.1) mg/dl Magnesium 2.1 (1.8-2.4) mg/dl
[2018-12-24] MEDS: LORazepam 1 MG TAB PO PRN (22:11)
[2018-12-25 06:59] LABS: Hematocrit (blood only) 28.9 % (37-47); Hemoglobin 8.5 g/dL (12.0-16.0); Mean Corpuscular Hgb Conc 29.4 g/dL (32-36); Mean Corpuscular Volume 70.7 fL (80-100); Mean Platelet Volume 10.1 fL (7.4-10.4); Platelet Count 370 K/uL (130-400); RDW Coefficient of Variation 16.5 % (11.5-14.5); RDW Standard Deviation 42.7 fL (36.4-46.3); Red Blood Count 4.09 M/uL (4.2-5.4)
[2018-12-25 07:11] LABS: INR 1.1 (0.9-1.1); Partial Thromboplastin Ratio 0.9; Prothrombin Time 10.7 Seconds (9.0-12.0)
[2018-12-25 07:35] LABS: BUN Creatinine Ratio 24.9 (10-20); Creatinine Clr Calc Pharmacy 44.9 ml/min; Est GFR (Non-African American) 62.2; Magnesium 2.2 mg/dl (1.8-2.4); Potassium 3.4 mmol/L (3.5-5.1)
[2018-12-25] MEDS: FERROUS SULFATE 325 MG TAB PO SCH ×3 (07:35→20:19)
[2018-12-25] MEDS: PANTOprazole 40 MG TAB PO SCH (07:35)
[2018-12-25] MEDS: LOSARTAN POTASSIUM 50 MG TAB PO SCH (07:35)
[2018-12-25] MEDS: FUROSEMIDE 40 MG in SYRINGE 0 ML IV SCH ×2 (07:35→13:40)
[2018-12-25] MEDS ORDERED: POTASSIUM CHLORIDE 20 MEQ TABCR PO STA (07:42)
[2018-12-25] MEDS: ENOXAPARIN INJ 40 MG/0.4 ML SYR SQ SCH (08:44)
--- NOTE | 2018-12-25 11:23 | Hospitalist Progress Note ---
Date of Service December 25, 2018 Assessment & Plan (1) Acute on chronic diastolic heart failure: - Presented with MCKINNON likely related to acute CHF. - BNP was 624; TTE showed grade I diastolic dysfunction, EF 50-55%. - Doppler of bilat LE and V/Q scan both negative; D-dimer was elevated at 950. - T-wave inversions in aVL on EKG; Trop negative x2 -- consider repeat work up and cardio consult for atypical chest pain (epigastric pain with exertion?) - Monitor I/O's and daily weights - has lost ~2 kg since admission. - Continue Lasix 40 mg IV BID. (2) Hypertension: - Recently d/c'ed Losartan; resumed medication at admission. - BP well controlled. (3) Iron deficiency anemia: - Ferritin level 4.6, Iron level 13. - Started Ferrous sulfate 325 mg BID; will increase to TID dosing. - Start bowel regimen: Colace 100 BID with Miralax prn. - Monitor H/H daily -- hemoglobin remains decreased. (4) Chronic kidney disease, stage II (mild): - Renally dose all meds; monitor closely in setting of diuresis. (5) Upper GI bleed: - History of GI bleed noted in chart, no records of episode. - Monitor H/H as noted above, consider FOBT. (6) Gastritis: - Started on PPI and Carafate as outpatient. - Continue Protonix 40 mg daily. (7) Hypokalemia: - K level 3.4 - ordered K 40 mEq PO. Has required daily supplementation. - Monitor levels qAM. - H/o gastritis in setting of daily KCl supplements; KCl was discontinued as outpatient by GI. (8) DVT prophylaxis: - SCDs; Lovenox q24hr. Dispo: Continue IV diuresis. Supervising Physician Co-Signing Physician Notes Attending Attestation - Chart reviewed in detail, and care plan d/w VANCE Bxo. I agree w/ the babb components of her documentation. Pt continues to feel better with respect to pulmonary symptoms. Labs/vitals stable. Continue IV lasix. Sav Velasco MD Subjective Pt. is doing well overall. She walked in hallways last evening, did not develop severe SOB. She did have trouble with breathing, stating she felt a pain in her upper abdomen when trying to catch her breath. Pt. denies abdominal pain. She has h/o epigastric pain; KCl tablets discontinued due to presumed gastritis. Work up for PE was negative at admission. Will continue IV diuresis, no evidence of acute renal failure 2/2 dehydration. Review of Systems All systems reviewed & are unremarkable except as noted in HPI & below Constitutional: no fever and no chills Respiratory: + dyspnea on exertion; no cough and no dyspnea Cardiovascular: no chest pain, no palpitations and no edema Gastrointestinal: + abdominal pain (See HPI); no nausea, no vomiting, no constipation and no diarrhea/loose stools Genitourinary (Female): no difficulty urinating Allergy / Immunological: no rash Physical Exam 2 Vital Signs (Past 24 Hours): Last Vital Signs Temp 36.9 C 12/25/18 07:58 Pulse 89 12/25/18 07:58 Resp 18 12/25/18 07:58 BP 145/68 H 12/25/18 07:58 Pulse Ox 98 12/25/18 07:58 Physical Exam: General: Resting comfortably in no apparent distress HEENT: NC/AT; PERRLA with EOMI; [place] conjunctiva, MMM. Neck: Supple and nontender Cardiac: RRR Lungs: on room air; clear throughout Abdomen: Bowel normoactive X 4; Nontender to palpation Extremities: Warm. No LE edema noted. Neuro: No focal weakness Skin: No rash Results & Data Laboratory Results 12/25/18 12/25/18 12/25/18 Range/Units 06:30 06:30 06:30 WBC 9.90 (4.8-10.8) K/uL RBC 4.09 L (4.2-5.4) M/uL Hgb 8.5 L (12.0-16.0) g/dL Hct 28.9 L (37-47) % MCV 70.7 L (80-100) fL MCH 20.8 L (25-34) pg MCHC 29.4 L (32-36) g/dL RDW Std Deviation 42.7 (36.4-46.3) fL RDW Coeff of Erica 16.5 H (11.5-14.5) % Plt Count 370 (130-400) K/uL MPV 10.1 (7.4-10.4) fL PT 10.7 (9.0-12.0) Seconds INR 1.1 (0.9-1.1) APTT 24.0 (21.0-31.0) Seconds PTT Ratio 0.9 Sodium 137 (136-145) mmol/L Potassium 3.4 L (3.5-5.1) mmol/L Chloride 105 (98-107) mmol/L Carbon Dioxide 27 (21-32) mmol/L Anion Gap 5.0 (3-11) BUN 23 H (7-18) mg/dl Creatinine 0.91 (0.6-1.2) mg/dl Est Cr Clr Drug Dosing 44.9 ml/min Est GFR ( Amer) 72.0 Est GFR (Non-Af Amer) 62.2 BUN/Creatinine Ratio 24.9 H (10-20) Glucose 123 H (70-99) mg/dl Calcium 9.0 (8.5-10.1) mg/dl Magnesium 2.2 (1.8-2.4) mg/dl
[2018-12-25] MEDS ORDERED: POLYETHYLENE (MIRALAX) 17 GM PACK PO PRN (12:24)
[2018-12-25] MEDS: DOCUSATE SODIUM 100 MG CAP PO SCH (20:19)
[2018-12-25] MEDS: LORazepam 1 MG TAB PO PRN (21:40)
[2018-12-26 07:42] LABS: Hematocrit (blood only) 30.6 % (37-47); Hemoglobin 8.9 g/dL (12.0-16.0); Mean Corpuscular Hgb Conc 29.1 g/dL (32-36); Mean Corpuscular Volume 71.5 fL (80-100); Mean Platelet Volume 10.4 fL (7.4-10.4); Nucleated RBC # (auto) 0.02 K/uL (0-0); Nucleated RBC % (auto) 0.1 %; Platelet Count 387 K/uL (130-400); RDW Coefficient of Variation 16.7 % (11.5-14.5); RDW Standard Deviation 42.9 fL (36.4-46.3); Red Blood Count 4.28 M/uL (4.2-5.4); White Blood Count 11.58 K/uL (4.8-10.8)
[2018-12-26 08:20] LABS: BUN Creatinine Ratio 25.7 (10-20); Calcium 8.8 mg/dl (8.5-10.1); Creatinine Clr Calc Pharmacy 40.4 ml/min; Est GFR (African American) 63.5; Est GFR (Non-African American) 54.8; Magnesium 2.2 mg/dl (1.8-2.4); Potassium 3.6 mmol/L (3.5-5.1)
[2018-12-26] MEDS: LOSARTAN POTASSIUM 50 MG TAB PO SCH ×2 (09:19→15:17)
[2018-12-26] MEDS: FERROUS SULFATE 325 MG TAB PO SCH ×3 (09:19→20:44)
[2018-12-26] MEDS: PANTOprazole 40 MG TAB PO SCH (09:19)
[2018-12-26] MEDS: DOCUSATE SODIUM 100 MG CAP PO SCH ×2 (09:19→20:44)
[2018-12-26] MEDS: ENOXAPARIN INJ 40 MG/0.4 ML SYR SQ SCH (09:19)
[2018-12-26] MEDS: FUROSEMIDE 40 MG in SYRINGE 0 ML IV SCH ×2 (09:19→15:18)
--- NOTE | 2018-12-26 14:32 | Hospitalist Progress Note ---
Date of Service December 26, 2018 Assessment & Plan (1) Acute on chronic diastolic heart failure: - Presented with MCKINNON likely related to acute CHF. - BNP was 624; TTE showed grade I diastolic dysfunction, EF 50-55%. - Doppler of bilat LE and V/Q scan both negative; D-dimer was elevated at 950. - T-wave inversions in aVL on EKG; Trop negative x2 -- consider cardio consult for atypical chest pain (epigastric pain with exertion?) - Monitor I/O's and daily weights - has lost ~2 kg since admission, I/O's are not accurate. - Continue Lasix 40 mg IV BID -- will continue IV diuresis over next 24 hours. (2) Dizziness: - H/o dizziness, has had syncopal episodes in past (>1 year ago) - C/o dizziness this morning, occurs at rest and with ambulation. - Orthostatics were negative. - Echo without valvular abnormalities. - PT ordered for vestibular evaluation. - Has tried Meclizine in past; pt. did not want to try dose this morning. (3) Hypertension: - Recently d/c'ed Losartan; resumed medication at admission. (4) Iron deficiency anemia: - Ferrous sulfate 325 mg TID. - Bowel regimen: Colace 100 BID with Miralax prn. - Monitor H/H daily -- hemoglobin stable. (5) Chronic kidney disease, stage II (mild): - Renally dose all meds; monitor closely in setting of diuresis. (6) Upper GI bleed: - History of GI bleed noted in chart, no records of episode. - Monitor H/H as noted above, consider FOBT. (7) Gastritis: - Started on PPI and Carafate as outpatient. - Continue Protonix 40 mg daily. (8) Hypokalemia: - K level 3.6 - no replacement. - Monitor levels qAM. - H/o gastritis in setting of daily KCl supplements; KCl was discontinued as outpatient by GI. (9) DVT prophylaxis: - SCDs; Lovenox q24hr. Dispo: Continue IV diuresis. Supervising Physician Co-Signing Physician Notes Attending Attestation - Chart reviewed in detail, and care plan d/w VANCE Box. I agree w/ the babb components of her documentation. Pt continues to diurese well. Agree with Ms. DelGrosso that I's and O's are likely inaccurate. Dizziness - agree with PT eval (vestibular eval) although symptoms are not typical vertigo. Labs in am. Sav Velasco MD Subjective Pt. is doing well overall. Shortness of breath is improved, has been ambulating without issues. Pt. does complain of dizziness today. Dizziness occurs with ambulation and at rest. Denies vertigo, significant change with standing/ sitting. She has h/o dizziness in past, has never had significant work up. Pt. did take Meclizine in past but does not remember if it worked. Pt. also had episodes of syncope in the past; last syncopal episode was >1 year ago. Orthostatics negative. Echo negative for significant valvular disease. Will continue to monitor. Review of Systems All systems reviewed & are unremarkable except as noted in HPI & below Constitutional: + weakness; no fever and no chills Respiratory: no cough, no dyspnea and no dyspnea on exertion Cardiovascular: + lightheadedness (See HPI); no chest pain, no palpitations, no syncope and no edema Gastrointestinal: no abdominal pain, no nausea and no constipation Genitourinary (Female): no difficulty urinating Allergy / Immunological: no dyspnea Physical Exam 2 Vital Signs (Past 24 Hours): Last Vital Signs Temp 36.8 C 12/26/18 07:19 Pulse 81 12/26/18 07:19 Resp 20 12/26/18 07:19 BP 143/70 H 12/26/18 07:19 Pulse Ox 94 12/26/18 07:19 Physical Exam: General: Resting comfortably in no apparent distress HEENT: NC/AT; PERRLA with EOMI; [place] conjunctiva, MMM. Neck: Supple and nontender Cardiac: RRR Lungs: on room air; clear throughout Abdomen: Bowel normoactive X 4; Nontender to palpation Extremities: Warm. No LE edema noted. Neuro: No focal weakness Skin: No rash Results & Data Laboratory Results 12/26/18 12/26/18 Range/Units 07:15 07:15 WBC 11.58 H (4.8-10.8) K/uL RBC 4.28 (4.2-5.4) M/uL Hgb 8.9 L (12.0-16.0) g/dL Hct 30.6 L (37-47) % MCV 71.5 L (80-100) fL MCH 20.8 L (25-34) pg MCHC 29.1 L (32-36) g/dL RDW Std Deviation 42.9 (36.4-46.3) fL RDW Coeff of Erica 16.7 H (11.5-14.5) % Plt Count 387 (130-400) K/uL MPV 10.4 (7.4-10.4) fL Absolute Nucleated RBC 0.02 H (0-0) K/uL Nucleated RBC % (auto) 0.1 % Sodium 137 (136-145) mmol/L Potassium 3.6 (3.5-5.1) mmol/L Chloride 103 (98-107) mmol/L Carbon Dioxide 27 (21-32) mmol/L Anion Gap 7.0 (3-11) BUN 26 H (7-18) mg/dl Creatinine 1.01 (0.6-1.2) mg/dl Est Cr Clr Drug Dosing 40.4 ml/min Est GFR ( Amer) 63.5 Est GFR (Non-Af Amer) 54.8 BUN/Creatinine Ratio 25.7 H (10-20) Glucose 111 H (70-99) mg/dl Calcium 8.8 (8.5-10.1) mg/dl Magnesium 2.2 (1.8-2.4) mg/dl
[2018-12-26] MEDS: LORazepam 1 MG TAB PO PRN (22:09)
[2018-12-27] MEDS: FUROSEMIDE 40 MG in SYRINGE 0 ML IV SCH (06:32)
[2018-12-27 07:01] LABS: Hematocrit (blood only) 31.4 % (37-47); Hemoglobin 9.5 g/dL (12.0-16.0); Mean Corpuscular Hgb Conc 30.3 g/dL (32-36); Mean Corpuscular Volume 71.4 fL (80-100); Mean Platelet Volume 10.4 fL (7.4-10.4); Platelet Count 418 K/uL (130-400); RDW Standard Deviation 42.9 fL (36.4-46.3); White Blood Count 12.34 K/uL (4.8-10.8)
[2018-12-27 07:30] LABS: BUN Creatinine Ratio 24.8 (10-20); Est GFR (African American) 68.4; Magnesium 2.2 mg/dl (1.8-2.4); Potassium 3.4 mmol/L (3.5-5.1)
[2018-12-27] MEDS ORDERED: POTASSIUM CHLORIDE 20 MEQ TABCR PO ONE (08:15)
[2018-12-27] MEDS: FERROUS SULFATE 325 MG TAB PO SCH (08:31)
[2018-12-27] MEDS: DOCUSATE SODIUM 100 MG CAP PO SCH (08:31)
[2018-12-27] MEDS: PANTOprazole 40 MG TAB PO SCH (08:31)
[2018-12-27] MEDS: LOSARTAN POTASSIUM 50 MG TAB PO SCH (08:32)
[2018-12-27] MEDS: ENOXAPARIN INJ 40 MG/0.4 ML SYR SQ SCH (08:32)
[2018-12-27 10:11] LABS: Appearance Urine Clear (Clear); Bacteria Urine Automated Negative (Negative); Bilirubin Urine Negative (Negative); Blood Urine Negative (Negative); Color Urine Yellow; Glucose Urine UA Negative (Negative); Ketones Urine Negative (Negative); Leukocyte Esterase Urine Trace (Negative); Nitrite Urine Negative (Negative); Protein Urine Negative (Negative); RBC Urine Automated 0-4 /hpf (0-4); Urobilinogen Urine Negative (Negative); pH Urine 7.5 (4.5-7.5)
--- NOTE | 2018-12-27 15:07 | Discharge Summary ---
Date of Service December 27, 2018 Admission HPI Per Admitting Provider 73yo F w/ hx of HTN who presents with shortness of breath worsening over several months. Per patient, got bronchitis in July and hasn't felt well since then. Reports increased dyspnea on exertion, orthopnea. The patient saw Dr. Johnson in clinic ~3 weeks ago and was told to stop her Lasix at that time which she'd been on for years for LE swelling. Also stopped her losartan at that time. Per outpatient note, he was worried that the potassium supplement she had been on was causing pill esophagitis or gastritis. He had her stop the Lasix (thinking she didn't really need it) and the potassium at that time, and also started her on a PPI and sulcrafate. Since that time, she notes she took the Lasix twice about a week ago for some LE swelling that went up to her knees, but otherwise, has not been taking it. She reports some right-sided chest pain that occurs wtih exertion as well. However, she denies nausea, vomiting, GERD-type symptoms, lightheadedness, or dizziness with exertion. Admission Exam Per Admitting Provider Constitutional: WD/WN, vitals as above Eyes: EOM intact bilaterally; no conjunctival abnormality ENMT: external ear and nose normal, oropharynx normal Neck: trachea midline, no thyromegaly normal visual inspection Respiratory: normal respiratory effort, lungs clear to auscultation no respiratory distress Cardiovascular: RRR, no murmur, no edema Rate/Rhythm: regular rate and regular rhythm Heart Sounds: normal S1, normal S2 and + gallop Vessels: no JVD Extremities: no edema Gastrointestinal (Abdomen): Inspection/Auscultation: abdomen normal to inspection; abdomen not distended Musculoskeletal: no cyanosis or clubbing, extremities motor strength 5/5 Skin: no rashes, warm and dry Neurologic: moves all extremities and awake Psychiatric: Orientation: alert, oriented to person and cooperative Principal Diagnosis Acute/chronic diastolic congestive heart failure Discharge Exam General: Resting comfortably in no apparent distress HEENT: NC/AT; PERRLA with EOMI; [place] conjunctiva, MMM. Neck: Supple and nontender Cardiac: RRR Lungs: on room air; clear throughout Abdomen: Bowel normoactive X 4; Nontender to palpation Extremities: Warm. No LE edema noted. Neuro: No focal weakness Skin: No rash Discharge Data Allergies Allergy/AdvReac Type Severity Reaction Status Date / Time codeine Allergy Unknown SWELLING Verified 12/22/18 12:30 OF FACE &BODY Iodinated Contrast- Oral and Allergy Unknown PT STATES Verified 12/22/18 12:30 IV Dye SHE HAD A "PARALYZED REACTION AND COULD NOT SPEAK" hydrocodone AdvReac Intermediate hallucinati Verified 12/22/18 12:30 ons oxycodone AdvReac Intermediate hallucinati Verified 12/22/18 12:30 ons Consultations 12/22/18 13:27 ED Decision to Admit Stat Ordered Studies 12/22/18 13:07 US venous doppler LE BI Stat - negative for DVT CXR 12/22/18 V/Q Scan 12/22/18 - low probability for PE Hospital Course (1) Acute on chronic diastolic heart failure: Pt. presented with MCKINNON related to CHF exacerbation. BNP was 624. TTE showed grade I diastolic dysfunction, EF 50-55%. Doppler of bilat LE and V/Q scan was negative for PE/DVT. EKG showed T-wave inversion in aVL; Trop was negative x2. Lasix 40 mg IV was ordered. Pt. lost ~3kg; I/Os were likely not accurate. Metoprolol XL 25 mg daily was started. SOB resolved, she was stable on room air. She was stable for discharge on 12/27/18. Pt. will continue Lasix 40 mg PO daily at home along with KCl 20 mEq daily. A request was placed for the nurse navigator to schedule an appt with cardiology as an outpatient. (2) Dizziness: H/o dizziness, has had syncopal episodes in past (>1 year ago). Orthostatics were negative. Echo was negative for valvular abnormalities. PT was ordered for vestibular evaluation and did not recommend ongoing therapy. Dizziness resolved prior to discharge. (3) Hypertension: Recently d/c'ed Losartan; resumed medication at admission. Metoprolol 25 mg daily was added in setting of HF. Losartan dose was decreased to 25 mg daily. (4) Iron deficiency anemia: Pt. was anemic with hgb ~8.5, lower than baseline. Ferrous sulfate was started and increased to TID. Bowel regimen ordered. She has a h/o an upper GI bleed. Pt. was instructed to follow up with GI to discuss a repeat scope along with celiac testing in the setting of abdominal issues. (5) Chronic kidney disease, stage II (mild): Renally dosed all meds. (6) Upper GI bleed: No evidence of active bleeding. (7) Gastritis: Started on PPI and Carafate as outpatient. PPI was continued daily. (8) Hypokalemia: K was replaced as needed. She will continue KCl 20 mEq daily at home. (9) DVT prophylaxis: Lovenox was ordered daily. Pt. was stable for discharge on 12/27/18. Total Time Total Time Spent Total Time Spent (In Minutes): >30 minutes Total Time Includes: Examination of the Patient, Discharge Planning, Medication Reconciliation, Communication With Other Providers and Other Discharge Plan Discharge Items Patient Disposition: Home - Self-Care Reason For Visit: SHORTNESS OF BREATH Discharge Diagnosis: CHF Exacerbation Condition: Good Discharge Goals: Improve disease control, Improve function, Increase independence and Prevent disease Activity: As commented below Exercise/Sports: Gradually increase as tolerated Non-emergency contact: Primary Care Provider Call non-emergency contact if: you have any medication questions, your symptoms worsen, your pain is not controlled and you have a fever Follow-up/Referrals: Ira Bejarano MD [Primary Care Provider] - 01/01/19 11:00 am (Please, follow up with Dr. Bejarano on January 01 at 11:30 am. *If you have any questions, call her office at [phone].) Krunal Johnson, [Surgeon] - 12/31/18 10:00 am (Please, follow up with Dr. Krunal Johnson on SaturdayDecember 31 at 10:00 am. *This office is located at [address] [place] [address] in [place]. If you need to change this appointment, call the office at [phone].) Diet: Heart Healthy and Low Sodium (2gm) Fluids: 2000ml (8 cups) Addtl Provider Instructions: 1. Congestive Heart Failure * You were admitted for a CHF exacerbation. * Please take Lasix 40 mg daily at home. * You will need to take Potassium 20 mEq daily. * Metoprolol 25 mg daily has been started. * Follow heart failure instructions as noted below. * Please follow up with your family doctor as scheduled on 01/01/2019. * Please follow a low sodium diet with a 2L fluid restriction. * An appointment will be scheduled with cardiology over the next few weeks. 2. Iron Deficiency Anemia * Please take Ferrous sulfate 325 mg three times daily. * Please take a stool softener twice daily to prevent constipation in the setting of iron supplementation. * You will need lab work in the future to monitor hemoglobin levels. * Please follow up with GI to discuss indication for an EGD/colonoscopy along with Celiac disease testing. 3. Hypertension * Losartan dose has been decreased to 25 mg daily. * Metoprolol XL 25 mg daily has been added. * Prescriptions were sent to your pharmacy. 4. Gastritis & GERD * Please continue Pantoprazole 40 mg daily as prescribed. 5. Please follow up with your primary care provider as scheduled on 01/01/2019. 6. Please follow up with Dr. Johnson as scheduled on 12/31/2018. 7. Please call your family doctor or go to the ER if you develop the following: Call 911 and go to the Emergency Room if: * You have tightness or pain in your chest that does not go away with rest or Nitroglycerin * You are very short of breath even with rest Call your doctor if any of the following symptoms or problems start or get worse: * Shortness of breath or difficulty breathing * Wake up at night short of breath * Chest pain * Cough * Swelling of your hands, fee, or legs * More fatigued or tired with your normal activity * Palpitations - sudden fast heart beats WEIGHT * Weigh yourself every morning after using the bathroom. * Use the same scale. * Wear the same amount of clothing. * Write your weight down on your chart. * Call your doctor if you gain more than 2-3 pounds in 1-2 days. MEDICATIONS * Use this discharge instruction sheet for instructions. * Take your medications at the time your doctor ordered. * Do not skip a dose of your medicines. * If you miss a dose of medicine, take as soon as possible, but DO NOT DOUBLE A DOSE. * Read your medicine information when you get home. * Know all of the side effects of your medicine. * Call your doctor's office if you have any side effects. * Be sure all of your doctors know what medicine and herbs you take (including cold, flu, and herbal medicine). * Pain Medicine: If you do not get relief from your pain, please call your doctor for help. Take the following with you to your follow-up doctor appointments: * Weight Chart * Medication List * List of questions Do not drink excessive alcohol, beer or wine. Prescriptions: New docusate sodium 100 mg Capsule 100 mg PO BID 30 Days Qty: 60 RF: 0 ferrous sulfate 325 mg (65 mg iron) Tablet,Delayed Release (Dr/Ec) 325 mg PO TID 30 Days Qty: 90 RF: 0 furosemide [Lasix] 40 mg tablet 40 mg PO DAILY Qty: 1 RF: 0 potassium chloride 20 mEq tablet extended release 20 meq PO DAILY Qty: 1 RF: 0 losartan 25 mg tablet 25 mg PO DAILY Qty: 30 RF: 1 metoprolol succinate 25 mg tablet extended release 24 hr 25 mg PO DAILY Qty: 30 RF: 1 Continue pantoprazole 40 mg Tablet,Delayed Release (Dr/Ec) 40 mg PO DAILY RF: 0 lorazepam 1 mg Tablet 1 mg PO HS PRN (Reason: Anxiety) RF: 0 Discontinued losartan 50 mg Tablet 50 mg PO DAILY RF: 0 sucralfate 1 gram Tablet 1,000 mg PO QID RF: 0 Stand-Alone Forms: [facility] [employer] [facility] [place]/Other Patient Handouts: Heart Failure, Heart Failure Warning Signs, Heart Failure Tracking Weight, Heart Failure Being Active, Supplements Iron, Heart Failure Diet Changes, Anemia Iron Deficiency Ch Discharge Orders: Discharge Order (Routine); Ordered 12/27/18 Ordered By: Rossy Box Admission Data Admit Date/Time: 12/22/18 14:17 Attending Provider: Sav Velasco Admit Provider: Eb Viveros Primary Care Provider: Ira Bejarano Other Providers: Rossy Box Service: Telemetry Medical Other Interventions: Discharge Summary Assessment (RN) Last Done: 12/27/18 13:13 Pending Studies at Discharge: No DC Date/Time DO NOT enter until pt leaves facility: 12/27/18 14:30 Supervising Physician Co-Signing Physician Notes Attending Attestation & Discharge Note: Pt seen/examined, chart reviewed, discharge care plan d/w PA Rossy Box. I agree with the babb components of her documentation. 73yo female with history of recently diagnosed gastritis. About the time of the EGD showing gastritis her potassium and lasix were discontinued. She presented with progressive shortness of breath and clinical history/symptoms /chest x-ray were c/w decompensated diastolic CHF. She was diuresed during her stay with resolution of her pulmonary symptoms. She was resumed on lasix 40mg once daily. She was started on low-dose beta kitty. Low-dose ARB was also resumed. In addition to the above severe iron deficiency anemia was discovered with ferritin level <10. This may be due to gastritis that was found on EGD. Our team advised she return to her GI physician to complete an iron deficiency work-up (colonoscopy, possible celiac testing, etc). Oral iron supplementation was initiated. Discharge exam - gen - NAD neck - no JVD heart - RRR, s1, s2, no murmur lungs - CTA b/l abd - soft, NT, ND, BS+ ext - no edema Sav Velasco MD
== END 2018-12-27 14:30 | disposition home or self-care (01) | DRG 291 ==
LOC: ED 11:23 → SUATTDRO 14:17 → 2N 14:17
DX: Z86.2 Personal history of diseases of the blood and blood-forming organs and certain disorders involving the immune mechanism; R42 Dizziness and giddiness; T50.3X5A Adverse effect of electrolytic, caloric and water-balance agents, initial encounter; Z88.5 Allergy status to narcotic agent; I13.0 Hypertensive heart and chronic kidney disease with heart failure and stage 1 through stage 4 chronic kidney disease, or unspecified chronic kidney disease; Z79.899 Other long term (current) drug therapy; D50.9 Iron deficiency anemia, unspecified; K29.60 Other gastritis without bleeding; N18.2 Chronic kidney disease, stage 2 (mild); I50.33 Acute on chronic diastolic (congestive) heart failure; Z91.041 Radiographic dye allergy status; E87.6 Hypokalemia